=== PATIENT | male | born 1960 | race African-American/Black ===

== ENCOUNTER 2017-01-05 17:37 | Emergency (ER) | payer SELFPAY ==
[~2017-01-05] VITALS: Ht 182.9 cm; Wt 92.5 kg
[2017-01-05] MEDS ORDERED: TRAMADOL HCL50 MG ORAL (18:46)
[2017-01-05] MEDS ORDERED: IBUPROFEN600 MG ORAL (18:46)
[2017-01-05 19:05] VITALS: BP 152/98
--- NOTE | 2017-01-05 22:31 | Emergency Room Report ---
History of Present Illness General Chief Complaint: Lower Back Pain or Injury Source: Patient Present Illness HPI The patient is a 56-year-old male presenting for lower back pain which began 2 weeks prior. The patient states that the pain began due to a new car seat he installed. Pain is worse with sitting. It is described as an 8/10 dull ache and does not radiate from the lower back. He denies any numbness or tingling. He denies previous injury of the back. he has tried Motrin has not helped. He denies any other symptoms including nausea, vomiting, fever, chills Allergies: Coded Allergies: No Known Allergies (Unverified , 01/05/17) Patient History Past Medical History: see triage record Pertinent Family History: none Reviewed Nursing Documentation: PMH: Agreed, PSxH: Agreed Nursing Documentation-PMH Past Medical History: No Stated History Review of Systems All Other Systems: negative except mentioned in HPI Physical Exam Vital Signs Date Time Temp Pulse Resp B/P Pulse Ox O2 Delivery O2 Flow Rate FiO2 01/05/17 17:57 99.7 94 18 167/77 100 Room Air Sp02 EP Interpretation: reviewed, normal General Appearance: no apparent distress, alert, GCS 15, non-toxic Head: normocephalic, atraumatic Eyes: bilateral eye PERRL, bilateral eye normal inspection ENT: hearing grossly normal, normal pharynx, no angioedema, normal voice Neck: full range of motion, supple/symm/no masses Respiratory: chest non-tender, lungs clear, normal breath sounds, speaking full sentences Cardiovascular #1: regular rate, rhythm, no edema Musculoskeletal: back normal, gait/station normal, normal range of motion, tender - TTP over bilat lumbar paraspinous muscles Neurologic: alert, oriented x3, responsive, motor strength/tone normal, sensory intact, normal gait, speech normal Psychiatric: judgement/insight normal, memory normal, mood/affect normal, no suicidal/homicidal ideation Skin: normal color, no rash, warm/dry, well hydrated Medical Decision Making PA Attestation Dr. Escobar is my supervising physician. Patient management was discussed with my supervising physician Diagnostic Impression: Primary Impression: Lumbar strain Qualified Codes: S39.012A - Strain of muscle, fascia and tendon of lower back , initial encounter ER Course The patient is a 56-year-old male presenting for lower back pain DDx considered but not limited to: muscle strain, spasm, contusion, fracture, disc herniation, among others PE: vitals WNL. NAD findings consistent with lumbar muscle strain. No midline tenderness normal gait He will be DC'ed home with a prescription for motrin and tramadol. ER precautions given Last Vital Signs Date Time Temp Pulse Resp B/P Pulse Ox O2 Delivery O2 Flow Rate FiO2 01/05/17 19:05 96 16 152/98 99 Room Air 01/05/17 19:05 99.7 Status: improved Disposition: HOME, SELF-CARE Condition: Improved Scripts Tramadol Hcl* (ULTRAM*) 50 Mg Tablet 50 MG ORAL Q6H Y for For Pain, #10 TAB 0 Refills Prov: NADIA SAN 01/05/17 Ibuprofen* (MOTRIN*) 600 Mg Tablet 600 MG ORAL Q8H Y for For Pain, #30 TAB 0 Refills Prov: NADIA SAN.A. 01/05/17 Referrals: NOT CHOSEN IPA/MD,REFERRING (PCP) Patient Instructions: Back Pain, Adult Additional Instructions: I discussed my findings with the patient. All questions and concerns have been answered. Treatment and medication compliance have been addressed. I advised the patient that they need to follow up with PMD in 3-5 days. Return to ED if pain remains or worsens, numbness or tingling occurs, new rash is noticed, fever is noticed, or if needed for any reason. Patient verbalized understanding of discharge instructions. NADIA SAN Jan 05, 2017 22:31
== END 2017-01-05 19:10 | disposition home or self-care (01) ==
LOC: EMR 18:32
DX: S39.012A Strain of muscle, fascia and tendon of lower back, initial encounter (principal); X58.XXXA Exposure to other specified factors, initial encounter; Y92.89 Other specified places as the place of occurrence of the external cause
CPT/HCPCS: 99284

== ENCOUNTER 2020-08-27 14:12 | Inpatient (IN) | payer SELFPAY ==
[~2020-08-27] VITALS: Ht 182.9 cm; Wt 93.0 kg
[~2020-08-27 14:12] MED LIST: IBUPROFEN600 MG ORAL; TRAMADOL HCL50 MG ORAL
[2020-08-27] MEDS ORDERED: CYCLOBENZAPRINE10 MG ORAL (14:29)
[2020-08-27] MEDS ORDERED: ZOFRAN4 M3 ORAL (14:29)
[2020-08-27] MEDS ORDERED: HYDROCODON-ACE1 EA13 ORAL (14:29)
[2020-08-27] MEDS ORDERED: GABAPENTIN100 MG ORAL (14:29)
--- NOTE | 2020-08-27 14:31 | Emergency Room Report ---
History of Present Illness General Chief Complaint: Generalized Weakness Source: Patient, Family Member, EMS Present Illness HPI Family called EMS because the patient has been weak. He has a history of prostate cancer and is undergoing treatment at [facility]. Apparently was supposed to get a biopsy today but they could not get him to the facility because of weakness. He has been having dry heaves and decreased appetite. He is moved his bowels last in the last 2 to 3 days but says for the last week he has not been moving his bowels well at all. He denies any dysuria. He has had pain in his groin but does not radiate. He has been taking ibuprofen and [place] to treat the pain and denies pain at this time. He denies fevers or chills, productive cough or active vomiting. The patient had a negative Covid test this week. The daughter apparently states that he has been getting infusions at [facility]. Apparently a liver biopsy was recently done also. Daughters states that yesterday he did not recognize her initially but then did. Patient denies most ROS questions. Allergies: Coded Allergies: No Known Allergies (Unverified , 01/05/17) COVID-19 Screening Contact w/high risk pt: No Experienced COVID-19 symptoms?: No COVID-19 Testing performed SHANK CUTTER: Yes COVID-19 Screening: Negative COVID-19 COVID-19 Testing Source: nasal Patient History Past Medical History: see triage record Social History: Reports: alcohol use - daughter doesn't think problem but saw an open beer today; Denies: smoking, drug use Social History Narrative From home - lives by self (Daughter in [place] called 911) Reviewed Nursing Documentation: PMH: Agreed; PSxH: Agreed Nursing Documentation-PMH Past Medical History: No History, Except For Hx Cancer: Yes - prostate Review of Systems All Other Systems: negative except mentioned in HPI Physical Exam Vital Signs Date Time Temp Pulse Resp B/P (MAP) Pulse Ox O2 Delivery O2 Flow Rate FiO2 08/27/20 14:14 98.1 92 17 132/84 (100) 98 Room Air Sp02 EP Interpretation: reviewed, normal General Appearance: other - Slow speaking slightly spider habitus, Chronically Ill Head: normocephalic, atraumatic Eyes: bilateral eye PERRL, bilateral eye conjunctivae pale, bilateral eye scleral icterus ENT: moist mucus membranes Neck: supple Respiratory: lungs clear, normal breath sounds Cardiovascular #1: regular rate, rhythm Gastrointestinal: non tender, distended, other - fluid wave Genitourinary: no CVA tenderness Musculoskeletal: back normal Neurologic: alert, DTRs symmetric, motor weakness - generalized, other - slightly lethargic Psychiatric: other - Initially refusing care and suspicious Skin: warm/dry, pallor - Sallow Medical Decision Making Diagnostic Impression: Primary Impression: Encephalopathy Additional Impressions: Anemia Qualified Codes: D64.9 - Anemia, unspecified Liver failure Qualified Codes: K72.90 - Hepatic failure, unspecified without coma Prostate cancer Ascites Qualified Codes: R18.8 - Other ascites Bony metastasis Renal insufficiency Elevated INR ER Course Patient with history of prostate CA the presents with weakness nausea. Differential includes occult infection, acute myocardial infarction, metastatic disease electrolyte imbalance, dehydration amongst others. Patient evaluated with EKG, chest x-ray, abdomen film and labs. Patient treated with IV hydration. Challenging as patient is initially refusing care but finally agreed. EKG sinus rhythm with low voltage no injury. CXR with bony metastases. Abd ascites. Labs with anemia. Platelets slightly low. CMP: renal insufficiency and elevated LFTs. Normal ammonia. Elevated INR. Tox negative. Discussed with daughter. Unable to provide more specific PMHx and prior treatment. Patient incontinent of urine. Need to check I and O. Monzon placed. Turbid urine - Rocephin ordered. Daughter states he should be full code at this time. 1718 Complex patient with multiple co-morbidities. Admit. patient services rep consult - home evaluation and [facility] records request. Laboratory Tests Test 08/27/20 14:32 08/27/20 16:40 White Blood Count 5.2 K/UL (4.8-10.8) Red Blood Count 3.04 M/UL (4.70-6.10) L Hemoglobin 8.2 G/DL (14.2-18.0) L Hematocrit 26.7 % (42.0-52.0) L Mean Corpuscular Volume 88 FL (80-99) Mean Corpuscular Hemoglobin 26.8 PG (27.0-31.0) L Mean Corpuscular Hemoglobin Concent 30.5 G/DL (32.0-36.0) L Red Cell Distribution Width 25.6 % (11.6-14.8) H Platelet Count 127 K/UL (150-450) L Mean Platelet Volume 7.2 FL (6.5-10.1) Neutrophils (%) (Auto) % (45.0-75.0) Lymphocytes (%) (Auto) % (20.0-45.0) Monocytes (%) (Auto) % (1.0-10.0) Eosinophils (%) (Auto) % (0.0-3.0) Basophils (%) (Auto) % (0.0-2.0) Differential Total Cells Counted 100 Neutrophils % (Manual) 83 % (45-75) H Lymphocytes % (Manual) 12 % (20-45) L Monocytes % (Manual) 4 % (1-10) Eosinophils % (Manual) 0 % (0-3) Basophils % (Manual) 1 % (0-2) Band Neutrophils 0 % (0-8) Platelet Estimate Decreased L Platelet Morphology Normal Hypochromasia 1+ Anisocytosis 2+ Prothrombin Time 16.0 SEC (9.30-11.50) H Prothrombin Time INR 1.5 (0.9-1.1) H Activated Partial Thromboplast Time 30 SEC (23-33) Sodium Level 138 MMOL/L (136-145) Potassium Level 3.6 MMOL/L (3.5-5.1) Chloride Level 102 MMOL/L (98-107) Carbon Dioxide Level 23 MMOL/L (21-32) Anion Gap 13 mmol/L (5-15) Blood Urea Nitrogen 24 mg/dL (7-18) H Creatinine 1.4 MG/DL (0.55-1.30) H Estimated Glomerular Filtration Rate > 60 mL/min (>60) Glucose Level 100 MG/DL (74-106) Lactic Acid Level 1.40 mmol/L (0.4-2.0) Uric Acid 14.6 MG/DL (2.6-7.2) H Calcium Level 8.8 MG/DL (8.5-10.1) Magnesium Level 1.9 MG/DL (1.8-2.4) Ferritin 1091 NG/ML (8-388) H Total Bilirubin 3.4 MG/DL (0.2-1.0) H Direct Bilirubin 3.0 MG/DL (0.0-0.3) H Aspartate Amino Transferase (AST) 159 U/L (15-37) H Alanine Aminotransferase (ALT) 49 U/L (12-78) Alkaline Phosphatase 1042 U/L (46-116) H Ammonia 27 umol/L (11-32) Lactate Dehydrogenase 926 U/L (81-234) H Total Creatine Kinase 324 U/L (26-308) H Troponin I 0.000 ng/mL (0.000-0.056) C-Reactive Protein, Quantitative 13.1 mg/dL (0.00-0.90) H Pro-B-Type Natriuretic Peptide 1085 pg/mL (0-125) H Total Protein 6.2 G/DL (6.4-8.2) L Albumin 2.3 G/DL (3.4-5.0) L Globulin 3.9 g/dL Albumin/Globulin Ratio 0.6 (1.0-2.7) L Lipase 321 U/L (73-393) Thyroid Stimulating Hormone (TSH) 3.015 uiU/mL (0.358-3.740) Urine Color Yellow Urine Appearance Turbid Urine pH 6 (4.5-8.0) Urine Specific [place] 1.010 (1.005-1.035) Urine Protein 2+ (NEGATIVE) H Urine Glucose (UA) Negative (NEGATIVE) Urine Ketones 1+ (NEGATIVE) H Urine Blood 2+ (NEGATIVE) H Urine Nitrite Negative (NEGATIVE) Urine Bilirubin 1+ (NEGATIVE) H Urine Ictotest Negative (NEGATIVE) Urine Urobilinogen 8 MG/DL (0.0-1.0) H Urine Leukocyte Esterase Negative (NEGATIVE) Urine RBC 10-15 /HPF (0 - 0) H Urine WBC 0-2 /HPF (0 - 0) Urine Squamous Epithelial Cells None /LPF (NONE/OCC) Urine Amorphous Sediment Many /LPF (NONE) H Urine Bacteria Many /HPF (NONE) H Urine Opiates Screen Negative (NEGATIVE) Urine Barbiturates Screen Negative (NEGATIVE) Phencyclidine (PCP) Screen Negative (NEGATIVE) Urine Amphetamines Screen Negative (NEGATIVE) Urine Benzodiazepines Screen Negative (NEGATIVE) Urine Cocaine Screen Negative (NEGATIVE) Urine Marijuana (THC) Screen Negative (NEGATIVE) EKG Diagnostic Results Rate: normal Rhythm: NSR ST Segments: no acute changes - Low voltage Rhythm Strip Diag. Results EP Interpretation: yes Rhythm: NSR, no PVC's, no ectopy Chest X-Ray Diagnostic Results Chest X-Ray Diagnostic Results : Chest X-Ray Ordered: Yes # of Views/Limited/Complete: 1 View Indication: Other EP Interpretation: Yes Interpretation: no effusion, no pneumothorax, other - Bony mets Impression: Other Electronically Signed by: Electronically signed by Jerson Escobar MD Other X-Ray Diagnostic Results Other X-Ray Diagnostic Results : X-Ray ordered: Abdomen # of Views/Limited Vs Complete: 2 View Indication: Swelling EP Interpretation: Yes Interpretation: nonspecific bowel gas, no sbo, other - Ascites Impression: Other Electronically Signed by: Electronically signed by Jerson Escobar MD Last Vital Signs Date Time Temp Pulse Resp B/P (MAP) Pulse Ox O2 Delivery O2 Flow Rate FiO2 08/27/20 21:00 Room Air 08/27/20 16:53 98.1 82 18 130/80 98 Status: improved Disposition: ADMITTED INPATIENT Condition: Serious Jerson Escobar MD Aug 27, 2020 14:31
[2020-08-27 14:49] LABS: HEMATOCRIT 26.7 % (42.0-52.0); HEMOGLOBIN 8.2 G/DL (14.2-18.0); MEAN CORPUSCULAR VOLUME 88 FL (80-99); PLATELET COUNT 127 K/UL (150-450); RED BLOOD COUNT 3.04 M/UL (4.70-6.10); RED CELL DISTRIBUTION WIDTH 25.6 % (11.6-14.8); WHITE BLOOD COUNT 5.2 K/UL (4.8-10.8)
[2020-08-27 15:01] LABS: AMMONIA 27 umol/L (11-32); ANION GAP 13 mmol/L (5-15); BLOOD UREA NITROGEN 24 mg/dL (7-18); CALCIUM 8.8 MG/DL (8.5-10.1); CARBON DIOXIDE 23 MMOL/L (21-32); CHLORIDE 102 MMOL/L (98-107); CREATININE 1.4 MG/DL (0.55-1.30); INR 1.5 (0.9-1.1); POTASSIUM 3.6 MMOL/L (3.5-5.1); SODIUM 138 MMOL/L (136-145)
[2020-08-27 15:17] LABS: ALANINE AMINOTRANSFERASE 49 U/L (12-78); ALBUMIN 2.3 G/DL (3.4-5.0); ALBUMIN/GLOBULIN RATIO 0.6 (1.0-2.7); ALKALINE PHOSPHATASE 1042 U/L (46-116); ASPARTATE AMINO TRANSFERASE 159 U/L (15-37); BILIRUBIN,TOTAL 3.4 MG/DL (0.2-1.0); CREATINE KINASE 324 U/L (26-308); FERRITIN 1091 NG/ML (8-388); LACTATE DEHYDROGENASE 926 U/L (81-234)
--- NOTE | 2020-08-27 15:31 | NUR ---
Note geremias in EDM - 08/27/20 at 1537 by TESSA Patient brought into ER. His family called EMS because the patient has been weak. He present with hx of prostate cancer currently undergoing treatment at [facility]. Was scheduled to have a biopsy today but they could not get him to the facility because of weakness. He has been having dry heaves and decreased appetite. He is moved his bowels last in the last 2 to 3 days but says for the last week he has not been moving his bowels well at all. He denies any dysuria. He has had pain in his groin but does not radiate. He has been taking ibuprofen and [place] to treat the pain and denies pain at this time. He denies fevers or chills, productive cough or active vomiting.
--- NOTE | 2020-08-27 16:03 | Diagnostic Imaging Report ---
Indication: Abdominal pain Technique: Supine view of the abdomen Comparison: none Findings: Bowel gas pattern is unremarkable. Lack of bowel gas in the upper abdomen could indicate hepatomegaly and/or splenomegaly. No definite masses. The bones are very diffusely sclerotic. Impression: Possible hepatomegaly No definite acute abnormality Extremely sclerotic bones. Main differential considerations are metabolic disorder, diffuse osteosclerotic metastases. Correlate with clinical history
--- NOTE | 2020-08-27 16:05 | Diagnostic Imaging Report ---
Indication: Shortness of breath Technique: One view of the chest Comparison: none Findings: The bones are diffusely sclerotic. Multiple ribs appear to be expanded, particularly on the right. Apparent right hemithoracic masses probably represent expanded ribs, but intrapulmonary masses may also be present. No definite infiltrates. The heart size is normal. The pleural spaces are clear. Impression: Markedly abnormal diffusely sclerotic bones. Given apparent expansion of multiple ribs, most likely on the basis of neoplasm. Correlate with clinical history Apparent right lung masses are probably extrapulmonary due to the above-mentioned expanded ribs, although intrapulmonary lesions are also possible. No definite infiltrate
--- NOTE | 2020-08-27 16:27 | NUR ---
Patient is refusing hernández catheter. Will get assist to place
[2020-08-27] MEDS ORDERED: cefTRIAXone 1 GM in NS 55 ML IVPB ONE (16:45)
--- NOTE | 2020-08-27 16:56 | NUR ---
report given to hasmukh august patient is to be transferd to room 418-1
--- NOTE | 2020-08-27 17:17 | NUR ---
patients meds is in pharmacy envolope#[id number]
--- NOTE | 2020-08-27 17:20 | NUR ---
NURSE NOTES: Patient came to unit by ben in stable condition. Alert and oriented x4. No complain of pain or distress at this time. Skin intact and dry. IV dressing intact and dry. Belonging checked. Patient has villatoro and money order but refused to put in safe box. Bed lowest position and side rails up. Call light within reach. Will continue to monitor.
[2020-08-27 17:39] LABS: APPEARANCE,URINE TURBID; BILIRUBIN, URINE 1+ (NEGATIVE); GLUCOSE, URINE (UA) NEGATIVE (NEGATIVE); KETONES,URINE 1+ (NEGATIVE); NITRITE,URINE NEGATIVE (NEGATIVE); PH,URINE 6 (4.5-8.0); PROTEIN,URINE 2+ (NEGATIVE); UROBILINOGEN,URINE 8 MG/DL (0.0-1.0)
[2020-08-27 17:54] LABS: COLOR,URINE YELLOW
[2020-08-27 17:55] LABS: LEUKOCYTE ESTERASE ,URINE NEGATIVE (NEGATIVE)
[2020-08-27] MEDS ORDERED: Varibar Nectar 240ml MC PRN (18:15)
[2020-08-27] MEDS ORDERED: Varibar Thin Liquid powder 148gm MC PRN (18:15)
[2020-08-27] MEDS ORDERED: Varibar Honey 250ml MC PRN (18:15)
[2020-08-27] MEDS ORDERED: Varibar Pudding 230ml MC PRN (18:15)
--- NOTE | 2020-08-27 19:30 | NUR ---
NURSE HAND-OFF: Important Events on Shift:New admission Patient Status: Stable Diet: NPO Pending Orders: N/A Pending Results/Labs:CBC, CMP on 08/28 Pending MD notification:N/A Latest Vital Signs: Temperature 98.1 , Pulse 82 , B/P 130 /80 , Respiratory Rate 18 , O2 SAT 98 , Room Air, O2 Flow Rate . Vital Sign Comment: Stable Latest Omalley Fall Score: 50 Fall Risk: High Risk Safety Measures: Call light Within Reach, Bed Alarm Zone 1, Side Rails Side Rails x2, Bed position Low and Locked. Fall Precautions: Yellow Socks Door Sign Patient Fall Education Report given to Clemencia PEÑA. Patient in stable condition.
[2020-08-27] MEDS: D5NS 1,000 ML IV SCH (20:00)
[2020-08-28] VITALS (8 sets, daily range): BP systolic 123–145; BP diastolic 66–91
[2020-08-28] MEDS: D5NS 1,000 ML IV SCH ×2 (00:38→16:33)
[2020-08-28 06:54] LABS: HEMATOCRIT 24.4 % (42.0-52.0); HEMOGLOBIN 7.5 G/DL (14.2-18.0); MEAN CORPUSCULAR VOLUME 86 FL (80-99); PLATELET COUNT 120 K/UL (150-450); RED BLOOD COUNT 2.82 M/UL (4.70-6.10); RED CELL DISTRIBUTION WIDTH 26.2 % (11.6-14.8); WHITE BLOOD COUNT 5.7 K/UL (4.8-10.8)
--- NOTE | 2020-08-28 07:22 | NUR ---
NURSE HAND-OFF: Important Events on Shift:[ADMISSION, ALERT/ORIENTED TO PERSON/PLACE, SPEECH CLEAR/DELAYED, IV FLUIDS ONGOING RIGHT AC/GAUGE 20, ENCOURAGED PATIENT TO KEEP EXTREMITY STRAIGHT TO AVOID OCCLUDING IV FLUIDS, REQUIRE REPETITIVE INTERVENTIONS] Patient Status: [STABLE, AFEBRILE] Diet: [NPO] Pending Orders: [AM LABS] Pending Results/Labs:[] Pending MD notification:[] Latest Vital Signs: Temperature 98.1 , Pulse 82 , B/P 130 /80 , Respiratory Rate 18 , O2 SAT 98 , Room Air, O2 Flow Rate . Vital Sign Comment: [STABLE, AFEBRILE] Latest Omalley Fall Score: 50 Fall Risk: High Risk Safety Measures: Call light Within Reach, Bed Alarm Zone 2, Side Rails Side Rails x3, Bed position Low and Locked. Fall Precautions: Yellow Socks Door Sign Patient Fall Education Report given to [MARIANA RIVAS].
[2020-08-28 07:29] LABS: ALBUMIN 2.2 G/DL (3.4-5.0); ALBUMIN/GLOBULIN RATIO 0.6 (1.0-2.7); BILIRUBIN,TOTAL 3.3 MG/DL (0.2-1.0); CALCIUM 8.9 MG/DL (8.5-10.1); CREATININE 1.5 MG/DL (0.55-1.30); POTASSIUM 3.9 MMOL/L (3.5-5.1)
[2020-08-28 07:31] LABS: BILIRUBIN,DIRECT 2.7 MG/DL (0.0-0.3)
--- NOTE | 2020-08-28 07:54 | NUR ---
NURSE NOTES: Patient asleep; on room air, no sing of distress and shortness of breath; no sing of chest pain; IV RAC, patient keep his hand fold and IV fluid isn't going through; will try to insert another IV line; per PM nurse, couldn't able to insert another IV; will try to insert another IV; Monzon in place, Urine concentrated; side rails up x2, breaks engaged, bed at lowest position, bed alarm on; call light within reach; will keep monitoring.
--- NOTE | 2020-08-28 10:10 | NUR ---
NURSE NOTES: Patient's Hgb 7.5; I communicated MD Schmid regarding this lab value; waiting for order;
--- NOTE | 2020-08-28 11:57 | Consultation ---
Consult Note Consult Note I am asked to evaluate the patient at her request of Dr. Fields for fluid and electrolyte management Chief Complaint: Generalized Weakness Family called EMS because the patient has been weak. He has a history of prostate cancer and is undergoing treatment at [facility]. Apparently was supposed to get a biopsy today but they could not get him to the facility because of weakness. He has been having dry heaves and decreased appetite. He is moved his bowels last in the last 2 to 3 days but says for the last week he has not been moving his bowels well at all. He denies any dysuria. He has had pain in his groin but does not radiate. He has been taking ibuprofen and [place] to treat the pain and denies pain at this time. He denies fevers or chills, productive cough or active vomiting. The patient had a negative Covid test this week. The daughter apparently states that he has been getting infusions at [facility]. Apparently a liver biopsy was recently done also. Daughters states that yesterday he did not recognize her initially but then did. Patient denies most ROS questions. Allergies: No Known Allergies (Unverified , 01/05/17) COVID-19 Screening Contact w/high risk pt: No Experienced COVID-19 symptoms?: No COVID-19 Testing performed SAMPLE BOX MAKER: Yes COVID-19 Screening: Negative COVID-19 COVID-19 Testing Source: nasal \ Past Medical History: No History, Except For Hx Cancer: Yes - prostate \ Vital Signs Date Time Temp Pulse Resp B/P (MAP) Pulse Ox O2 Delivery O2 Flow Rate FiO2 08/27/20 14:14 98.1 92 17 132/84 (100) 98 Room Air PHYSICAL EXAMINATION: VITAL SIGNS: Temperature 97.9, pulse 87, blood pressure 124/81. GENERAL APPEARANCE: Seems to be well developed. HEAD AND NECK: Icteric sclerae. HEART: Normal rate. LUNGS: Clear. ABDOMEN: Soft, distended. EXTREMITIES: Has edema of both legs. GENITOURINARY: Has Monzon catheter. NEUROLOGIC: He is awake, alert, responsive, seems drowsy. LABORATORY STUDIES: Sodium 137, potassium 3.9, chloride 102, bicarb 22, BUN 25, creatinine 1.5, glucose is 92. Bilirubin is 3.3. AST 151, alkaline phosphatase is 999. Albumin 2.2. BNP 1085. Urine toxicology was negative. UA showed wbc of 0 to 2, bacteria many. Chest x-ray, markedly abnormal diffuse sclerotic bones, most likely basis of the neoplasm. Right lung mass is likely extrapulmonary from weight. No definite infiltrate. Abdominal x-ray showed again sclerotic bones hepatomegaly. . Assessment/Plan Imp: 59-year-old male presents with severe weakness. History of prostate cancer. Renal failure, serum creatinine 1.5 Severe anemia Elevated LFTs and bilirubin Sugg: Anemia work-up Kidney and abdominal ultrasound Monitor renal parameters Urine studies PSA level Avoid nephrotoxic's IV fluid Continue per consultants Dean Brink MD Aug 28, 2020 11:57
--- NOTE | 2020-08-28 12:16 | Diagnostic Imaging Report ---
EXAM: US Abdomen Complete CLINICAL HISTORY: INFECT TECHNIQUE: Real-time ultrasound of the abdomen with image documentation. COMPARISON: None FINDINGS: Liver: Heterogeneous liver with suggestion of masses throughout, concerning for masses. Liver is enlarged, measuring 22.8 cm. Gallbladder: No gallstones or sludge. No gallbladder wall thickening or pericholecystic fluid. Negative sonographic Carbajal sign. Common bile duct: Common bile duct not well visualized due to liver nodularity and bowel gas. Pancreas: Pancreas is not well-visualized due to overlying bowel gas. Kidneys: Right kidney measures 10.6 cm in length. No hydronephrosis or stone. Left kidney measures 10.7 cm in length. No hydronephrosis or stone. Spleen: Enlarged, heterogeneous spleen measuring 15.5 cm. This may also contain masses. Aorta: Aorta are not well-visualized due to overlying bowel gas. Inferior vena cava: Visualized portions of the IVC are grossly unremarkable. Other vasculature: Patent main portal vein with normal direction of flow. IMPRESSION: 1. Heterogeneous liver with suggestion of masses throughout, concerning for masses. Liver is enlarged, measuring 22.8 cm. 2. Enlarged, heterogeneous spleen measuring 15.5 cm. This may also contain masses. 3. Further evaluation could be performed with contrast-enhanced CT or MRI.
--- NOTE | 2020-08-28 12:29 | Cardiology Report ---
APPROVED REPORT EKG Measurement Heart [id number] <Conclusion> Normal sinus rhythm Low voltage QRS Possible Anterolateral infarct, age undetermined ST & T wave abnormality, consider inferior ischemia Abnormal ECG
--- NOTE | 2020-08-28 12:36 | NUR ---
NURSE NOTES: One Unit Blood Transfusion stated; vital stable; will monitoring patient for the first 15 minutes; recheck vitals
[2020-08-28 12:48] LABS: % IRON SATURATION 93 % (15-50); IRON 159 ug/dL (50-175); TOTAL IRON BINDING CAPACITY 171 ug/dL (250-450)
[2020-08-28 13:05] LABS: CHOLESTEROL 204 MG/DL (< 200); HDL CHOLESTEROL 13 MG/DL (40-60); TRIGLYCERIDES 172 MG/DL (30-150)
--- NOTE | 2020-08-28 13:59 | Consultation ---
DATE OF CONSULTATION: 08/28/2020 INFECTIOUS DISEASE CONSULTATION CONSULTING PHYSICIAN: Jim Miranda MD. PRIMARY ATTENDING PHYSICIAN: Gabrielle Ortiz MD. REASON FOR CONSULTATION: Elevated transaminase and bilirubin. HISTORY OF PRESENT ILLNESS: This is a 59-year-old male, admitted yesterday for weakness, has also altered mental status for a short period of time . He has metastatic prostate cancer and undergoing treatment at [facility], was supposed to have a biopsy yesterday, but cannot go to the facility because of weakness. Had a recent COVID test this week that was negative. PAST MEDICAL HISTORY: Prostate cancer. ALLERGIES: No known drug allergies. MEDICATIONS: The patient is only getting D5, sodium chloride, but had a dose of ceftriaxone in the emergency room yesterday. SOCIAL HISTORY: Single. No history of alcohol, drug abuse, or smoking. He has a daughter, who is next of kin. REVIEW OF SYSTEMS: Denies any fever or coughing. No shortness of breath. No dysuria. Does have some pain in groins. PHYSICAL EXAMINATION: VITAL SIGNS: Temperature 97.9, pulse 87, blood pressure 124/81. GENERAL APPEARANCE: Seems to be well developed. HEAD AND NECK: Icteric sclerae. HEART: Normal rate. LUNGS: Clear. ABDOMEN: Soft, distended. EXTREMITIES: Has edema of both legs. GENITOURINARY: Has Monzon catheter. NEUROLOGIC: He is awake, alert, responsive, seems drowsy. LABORATORY STUDIES: Sodium 137, potassium 3.9, chloride 102, bicarb 22, BUN 25, creatinine 1.5, glucose is 92. Bilirubin is 3.3. AST 151, alkaline phosphatase is 999. Albumin 2.2. BNP 1085. Urine toxicology was negative. UA showed wbc of 0 to 2, bacteria many. Chest x-ray, markedly abnormal diffuse sclerotic bones, most likely basis of the neoplasm. Right lung mass is likely extrapulmonary from weight. No definite infiltrate. Abdominal x-ray showed again sclerotic bones hepatomegaly. IMPRESSION: Bacteriuria, we will try to rule out UTI. The patient had elevated bilirubin and transaminase. The patient also has metastatic prostate cancer with bony metastasis, has right lung mass, has legs edema. RECOMMENDATION: We will follow up the cultures. We will follow the results of the abdominal ultrasound. We will start the patient on ceftriaxone. If the patient culture remains negative, we will stop antibiotics soon. At the end of my exam, I thank Dr. Ortiz for involving me in the care of this patient. Jim Miranda M.D. DR: KENJI JOB#: [id number] CC: NORMAN
--- NOTE | 2020-08-28 14:29 | NUR ---
NURSE NOTES: Patient resting, Blood transfusion going on; will keep monitoring.
[2020-08-28] MEDS: cefTRIAXone 1 GM in D5W 55 ML IVPB SCH (16:33)
--- NOTE | 2020-08-28 16:50 | NUR ---
NURSE NOTES: Blood transfusion completed; Transfused bag returned to Blood Bank; patient stable;
--- NOTE | 2020-08-28 19:19 | NUR ---
NURSE HAND-OFF: Important Events on Shift: One Unit PRBC blood transfusion done; US ABD done; Patient Status: Diet: Pending Orders: Pending Results/Labs: Pending MD notification: Latest Vital Signs: Temperature 98.0 , Pulse 85 , B/P 130 /84 , Respiratory Rate 20 , O2 SAT 98 , Room Air, O2 Flow Rate . Vital Sign Comment: Latest Omalley Fall Score: 50 Fall Risk: High Risk Safety Measures: Call light Within Reach, Bed Alarm Zone 2, Side Rails Side Rails x3, Bed position Low and Locked. Fall Precautions: Yellow Socks Door Sign Patient Fall Education Report given to .
--- NOTE | 2020-08-28 19:20 | NUR ---
NURSE NOTES: Patient in bed, able to make needs known. On room air with no signs of distress or SOB. Monzon in place, and draining to gravity. Bed locked and in lowest position. Bed alarm on. Call light within reach. Will continue plan of care.
[2020-08-28] MEDS: Pantoprazole Inj IVP SCH (20:39)
--- NOTE | 2020-08-28 22:29 | History and Physical Report ---
DATE OF ADMISSION: 08/27/2020 HISTORY OF PRESENT ILLNESS: The patient is being admitted for anemia. The patient has metastatic prostate cancer, admitted also for encephalopathy. The patient has waxing and waning mental status. Upon examination, closes eyes after about 5 seconds. The patient has been complaining of dry heaves and weakness. He has metastatic prostate cancer. Also, has liver failure and azotemia. Admitted for also acute renal failure as well as elevated LFTs, anemia, and encephalopathy. The patient denies nausea, vomiting, or diarrhea. Denies rectal bleeding. Denies shortness of breath. Denies cough. Denies fever or chills. Denies headache. Has generalized weakness. PAST MEDICAL HISTORY: 1. Chronic pain syndrome, most likely prostate cancer. 2. Metastatic prostate cancer. 3. Liver failure. 4. Bony metastasis. PAST SURGICAL HISTORY: Denies. ALLERGIES: No known allergies. SOCIAL HISTORY: Denies history of smoking. Denies history of alcohol abuse. Denies history of drug abuse. MEDICATIONS: He takes gabapentin, off-and-on Flexeril, and off-and-on tramadol. FAMILY HISTORY: Noncontributory. REVIEW OF SYSTEMS: HEENT: Denies headaches. RESPIRATORY: Denies shortness of breath. Denies cough. CARDIOVASCULAR: Denies chest pain. Denies orthopnea. GASTROINTESTINAL: Denies nausea, vomiting, or diarrhea. Does have dry heaves. EXTREMITIES: Denies pain. CENTRAL NERVOUS SYSTEM: Change in speech pattern, but feels more lethargic and weaker than usual. PHYSICAL EXAMINATION: VITAL SIGNS: Temperature is 97.9, pulse is 87, and blood pressure is 124/81. HEENT: PERRLA. NECK: Supple. No lymphadenopathy. CHEST: Clear to auscultation CARDIOVASCULAR: Regular rate and rhythm. No murmurs or extra sounds. GASTROINTESTINAL: Soft, nontender, nondistended. No organomegaly. EXTREMITIES: No edema. Moves all four extremities. NEUROLOGIC: Reflexes are equal on both sides. Has generalized weakness. Oriented x2 only. Has waxing and waning mental status. LABORATORY DATA: WBC of 5.2, hemoglobin of 8.2, and platelets of 127. Sodium 137, potassium of 3.9, chloride of 102, BUN of 25, creatinine of 1.5, glucose of 93, total bilirubin of 3.3, AST of 151, ALT of 47, and alkaline phosphatase of 999. ASSESSMENT AND PLAN: Metastatic prostate cancer, encephalopathy, anemia, elevated LFTs, acute renal failure, rule out dehydration. The patient has a Monzon in to rule out obstructive uropathy from the prostate cancer. I have consulted Dr. Zelaya, Dr. Matthews, Dr. Brink, Dr. Cr Schmid, Dr. Jim Miranda, and Dr. Solorzano to help with monitoring of the above-mentioned abnormalities that include abnormal labs, abnormal imaging as well as abnormal symptoms. Most likely, this could be due to the advancement of the cancer. We will monitor the patient very closely. Gabrielle Ortiz M.D. DR: Ember JOB#: [id number] CC:
--- NOTE | 2020-08-28 23:34 | General Progress Note ---
Subjective Allergies: Coded Allergies: No Known Allergies (Unverified , 01/05/17) Objective Last 24 Hour Vital Signs Date Time Temp Pulse Resp B/P (MAP) Pulse Ox O2 Delivery O2 Flow Rate FiO2 08/28/20 21:00 Room Air 08/28/20 20:00 97.9 90 18 145/85 (105) 99 08/28/20 16:50 98.0 85 20 130/84 (99) 08/28/20 16:00 98.0 90 20 128/84 (99) 08/28/20 12:51 97.6 91 20 131/91 (104) 08/28/20 12:36 97.0 83 20 130/77 (94) 08/28/20 12:00 97.0 83 20 130/77 (94) 08/28/20 09:00 Room Air 08/28/20 08:00 97.9 87 20 124/81 (95) Intake and Output 08/27/20 08/28/20 19:00 07:00 Intake Total 660 ml Output Total 450 ml Balance 210 ml Intake IV Total 660 ml Output Urine Total 450 ml Laboratory Tests 08/28/20 05:10: White Blood Count 5.7, Red Blood Count 2.82L, Hemoglobin 7.5L, Hematocrit 24.4L, Mean Corpuscular Volume 86, Mean Corpuscular Hemoglobin 26.5L, Mean Corpuscular Hemoglobin Concent 30.7L, Red Cell Distribution Width 26.2H, Platelet Count 120L , Mean Platelet Volume 8.5, Neutrophils (%) (Auto) , Lymphocytes (%) (Auto) , Monocytes (%) (Auto) , Eosinophils (%) (Auto) , Basophils (%) (Auto) , Differential Total Cells Counted 100, Neutrophils % (Manual) 85H, Lymphocytes % (Manual) 11L, Monocytes % (Manual) 4, Eosinophils % (Manual) 0, Basophils % (Manual) 0, Band Neutrophils 0, Nucleated Red Blood Cells 1, Platelet Estimate DecreasedL, Platelet Morphology Normal, Polychromasia 1+, Hypochromasia 2+, Anisocytosis 3+, Target Cells Occasional, Tear Drop Cells Occasional, Sodium Level 137, Potassium Level 3.9, Chloride Level 102, Carbon Dioxide Level 22, Anion Gap 13, Blood Urea Nitrogen 25H, Creatinine 1.5H, Estimat Glomerular Filtration Rate 58.4, Glucose Level 93, Calcium Level 8.9, Iron Level 159, Total Iron Binding Capacity 171L, Percent Iron Saturation 93H, Unsaturated Iron Binding 12L, Total Bilirubin 3.3H, Direct Bilirubin 2.7H, Aspartate Amino Transf (AST/SGOT) 151H, Alanine Aminotransferase (ALT/SGPT) 47, Alkaline Phosphatase 999H, Total Protein 6.0L, Albumin 2.2L, Globulin 3.8, Albumin/Globulin Ratio 0.6L, Triglycerides Level 172H, Cholesterol Level 204H, LDL Cholesterol 126H, HDL Cholesterol 13L, Cholesterol/HDL Ratio 15.7H, Prostate Specific Antigen 1522.57H, Folate 1.2L, Total Testosterone [Pending] Height (Feet): 6 Height (Inches): 0.00 Weight (Pounds): 205 Assessment/Plan Assessment/Plan: GI CONSULT Dictated Thank you MD Jos Glez Payman MD Aug 28, 2020 23:34
[2020-08-28] MEDS ORDERED: Phytonadione 10 mg/mL 1ml amp SUBQ SCH (23:45)
[2020-08-29 04:00] VITALS: BP 120/68
--- NOTE | 2020-08-29 06:14 | Consultation ---
DATE OF CONSULTATION: 08/28/2020 GASTROENTEROLOGY CONSULTATION CHIEF COMPLAINT: I was asked to see this patient by Dr. Gabrielle Ortiz for evaluation of liver issues. HISTORY OF PRESENT ILLNESS: The patient is a 59-year-old man with a reported history of prostate cancer, which is advanced and is being treated at [facility]. He is here for multiple issues. The patient is somewhat of a poor historian and most of the information is available mainly from the chart. The patient reportedly has metastatic prostate cancer with abnormal liver tests and encephalopathy. He denies abdominal pain, nausea, or vomiting to me. He states he has not had a bowel movement. He cannot recall if he has ever had endoscopy or colonoscopy. He did have some decreased appetite and dry heaves. PAST MEDICAL HISTORY: History of metastatic prostate cancer. FAMILY HISTORY: Noncontributory. SOCIAL HISTORY: The patient has a daughter who looks after him. REVIEW OF SYSTEMS: Otherwise negative. PHYSICAL EXAMINATION: GENERAL: Debilitated man, seen in his room. HEENT: Normocephalic and atraumatic. NECK: Supple. CHEST: Revealed coarse breath sounds. CARDIOVASCULAR: Revealed a regular rate. ABDOMEN: Markedly enlarged with firm liver extending 10 cm below the costal margin. EXTREMITIES: Reveal bilateral lower extremity edema. LABORATORY DATA: Noted. ASSESSMENT: This patient presents with significant derangement in the liver tests including bilirubin. The ultrasound done shows multiple metastases. By report, the patient has metastatic prostate cancer, but this pattern of metastasis to the liver is unusual for the prostate cancer. The patient should have a CT scan to better define the metastases and perhaps biopsy of the lesions. The biopsy of liver has been planned at [facility], but reportedly it has not been done yet. In the meantime, the patient has received some vitamin K to reverse the coagulopathy since INR is increased. The subcutaneous heparin should be given for deep vein thrombosis prophylaxis. The patient's prognosis overall appears to be poor, but further evaluation is underway. Clear liquid diet will be appropriate for now. Laxatives can be given as needed. RECOMMENDATIONS: Per above discussion and per orders written in the chart. Thank you for asking me to participate in the care of this patient. Agus Arguello M.D. DR: GAYLA JOB#: [id number] CC: NORMAN
--- NOTE | 2020-08-29 06:32 | NUR ---
NURSE HAND-OFF: Important Events on Shift: Vit K x1, ABD CT for today, NPO since midnight Patient Status: Stable Diet: Clear liquid Pending Orders: Abd CT Pending Results/Labs: blood culture/urine culture, ammonia, CMP, Mag, Phos, BNP, CRP, Cr, Uric acid, B12 Pending MD notification: N/A Latest Vital Signs: Temperature 97.8 , Pulse 74 , B/P 120 /68 , Respiratory Rate 18 , O2 SAT 96 , Room Air, O2 Flow Rate . Vital Sign Comment: N/A Latest Omalley Fall Score: 50 Fall Risk: High Risk Safety Measures: Call light Within Reach, Bed Alarm Zone 2, Side Rails Side Rails x3, Bed position Low and Locked. Fall Precautions: Yellow Socks Door Sign Patient Fall Education
[2020-08-29] MEDS: D5NS 1,000 ML IV SCH ×2 (06:53→16:21)
[2020-08-29 07:33] LABS: ANION GAP 10 mmol/L (5-15); BLOOD UREA NITROGEN 22 mg/dL (7-18); CALCIUM 8.5 MG/DL (8.5-10.1); CARBON DIOXIDE 22 MMOL/L (21-32); CHLORIDE 104 MMOL/L (98-107); CREATININE 1.3 MG/DL (0.55-1.30); POTASSIUM 3.5 MMOL/L (3.5-5.1); SODIUM 136 MMOL/L (136-145)
--- NOTE | 2020-08-29 07:35 | NUR ---
NURSE NOTES: Patient awake, looks weak and tired; on room air, no sing of distress and shortness of breath; no sing of chest pain; IV LAC D5NS 100cc running; Monzon in place, urine cloudy; lower extremities edematous; side rails up x2, breaks engaged, bed at lowest position, call light within reach; bed alarm on; will keep monitoring.
[2020-08-29 07:44] LABS: ALANINE AMINOTRANSFERASE 42 U/L (12-78); ALBUMIN/GLOBULIN RATIO 0.6 (1.0-2.7); ALKALINE PHOSPHATASE 921 U/L (46-116); ASPARTATE AMINO TRANSFERASE 127 U/L (15-37); BILIRUBIN,TOTAL 2.9 MG/DL (0.2-1.0)
[2020-08-29 07:45] LABS: BILIRUBIN,DIRECT 2.5 MG/DL (0.0-0.3)
[2020-08-29 07:53] LABS: HEMOGLOBIN 8.2 G/DL (14.2-18.0); MEAN CORPUSCULAR VOLUME 83 FL (80-99); PLATELET COUNT 75 K/UL (150-450); RED BLOOD COUNT 3.12 M/UL (4.70-6.10); RED CELL DISTRIBUTION WIDTH 23.4 % (11.6-14.8); WHITE BLOOD COUNT 4.8 K/UL (4.8-10.8)
[2020-08-29 08:00] VITALS: BP 109/66
[2020-08-29 08:02] LABS: CREATINE KINASE 280 U/L (26-308); PHOSPHORUS 2.7 MG/DL (2.5-4.9)
[2020-08-29] MEDS: Pantoprazole Inj IVP SCH ×2 (08:27→21:45)
[2020-08-29] MEDS ORDERED: Heparin 5000 units/ml inj SUBQ SCH (09:00)
--- NOTE | 2020-08-29 09:37 | Consultation ---
History of Present Illness General Chief Complaint: Generalized Weakness Present Illness Allergies: Coded Allergies: No Known Allergies (Unverified , 01/05/17) Medication History Scheduled Cyclobenzaprine Hcl* (Flexeril*), 5 MG ORAL THREE TIMES A DAY, (Reported) Gabapentin* (Gabapentin*), 300 MG ORAL DAILY, (Reported) Hydrocodone Bit/Acetaminophen 10-325* (Hydrocodon-Acetaminophn 10-325*), 1 TAB ORAL Q6H, (Reported) Scheduled PRN Ibuprofen (Motrin), 600 MG ORAL Q8H PRN for For Pain Ondansetron* (Zofran*), 8 MG ORAL EVERY 8 HOURS PRN for Nausea & Vomiting, (Reported) Tramadol Hcl* (Ultram*), 50 MG ORAL Q6H PRN for For Pain Patient History Healthcare decision maker N Resuscitation status Advanced Directive on File Physical Exam Last 24 Hour Vital Signs Date Time Temp Pulse Resp B/P (MAP) Pulse Ox O2 Delivery O2 Flow Rate FiO2 08/29/20 08:00 97.4 81 15 109/66 (80) 97 08/29/20 04:00 97.8 74 18 120/68 (85) 96 08/28/20 23:41 98.1 79 17 123/66 (85) 96 08/28/20 21:00 Room Air 08/28/20 20:00 97.9 90 18 145/85 (105) 99 08/28/20 16:50 98.0 85 20 130/84 (99) 08/28/20 16:00 98.0 90 20 128/84 (99) 08/28/20 12:51 97.6 91 20 131/91 (104) 08/28/20 12:36 97.0 83 20 130/77 (94) 08/28/20 12:00 97.0 83 20 130/77 (94) Intake and Output 08/28/20 08/29/20 19:00 07:00 Intake Total 710 ml Output Total 300 ml 250 ml Balance 410 ml -250 ml Intake IV Total 710 ml Output Urine Total 300 ml 250 ml # Voids 1 Laboratory Tests Test 08/29/20 07:14 White Blood Count 4.8 K/UL (4.8-10.8) Red Blood Count 3.12 M/UL (4.70-6.10) L Hemoglobin 8.2 G/DL (14.2-18.0) L Hematocrit 26.0 % (42.0-52.0) L Mean Corpuscular Volume 83 FL (80-99) Mean Corpuscular Hemoglobin 26.4 PG (27.0-31.0) L Mean Corpuscular Hemoglobin Concent 31.7 G/DL (32.0-36.0) L Red Cell Distribution Width 23.4 % (11.6-14.8) H Platelet Count 75 K/UL (150-450) L Mean Platelet Volume 7.0 FL (6.5-10.1) Neutrophils (%) (Auto) % (45.0-75.0) Lymphocytes (%) (Auto) % (20.0-45.0) Monocytes (%) (Auto) % (1.0-10.0) Eosinophils (%) (Auto) % (0.0-3.0) Basophils (%) (Auto) % (0.0-2.0) Differential Total Cells Counted 100 Neutrophils % (Manual) 78 % (45-75) H Lymphocytes % (Manual) 15 % (20-45) L Monocytes % (Manual) 3 % (1-10) Eosinophils % (Manual) 1 % (0-3) Basophils % (Manual) 0 % (0-2) Band Neutrophils 3 % (0-8) Nucleated Red Blood Cells 2 /100 WBC Platelet Estimate Decreased L Platelet Morphology Normal Polychromasia 1+ Hypochromasia 2+ Anisocytosis 3+ Target Cells Occasional Sodium Level 136 MMOL/L (136-145) Potassium Level 3.5 MMOL/L (3.5-5.1) Chloride Level 104 MMOL/L (98-107) Carbon Dioxide Level 22 MMOL/L (21-32) Anion Gap 10 mmol/L (5-15) Blood Urea Nitrogen 22 mg/dL (7-18) H Creatinine 1.3 MG/DL (0.55-1.30) Estimat Glomerular Filtration Rate > 60 mL/min (>60) Glucose Level 134 MG/DL (74-106) H Uric Acid 13.5 MG/DL (2.6-7.2) H Calcium Level 8.5 MG/DL (8.5-10.1) Phosphorus Level 2.7 MG/DL (2.5-4.9) Magnesium Level 1.9 MG/DL (1.8-2.4) Total Bilirubin 2.9 MG/DL (0.2-1.0) H Direct Bilirubin 2.5 MG/DL (0.0-0.3) H Aspartate Amino Transf (AST/SGOT) 127 U/L (15-37) H Alanine Aminotransferase (ALT/SGPT) 42 U/L (12-78) Alkaline Phosphatase 921 U/L (46-116) H Ammonia 38 umol/L (11-32) H Total Creatine Kinase 280 U/L (26-308) C-Reactive Protein, Quantitative 9.8 mg/dL (0.00-0.90) H Pro-B-Type Natriuretic Peptide 823 pg/mL (0-125) H Total Protein 5.5 G/DL (6.4-8.2) L Albumin 2.0 G/DL (3.4-5.0) L Globulin 3.5 g/dL Albumin/Globulin Ratio 0.6 (1.0-2.7) L Vitamin B12 Level > 2000 PG/ML (193-986) H Height (Feet): 6 Height (Inches): 0.00 Weight (Pounds): 205 Medications Current Medications Medications (Trade) Dose Ordered Sig/David Route PRN Reason Start Time Stop Time Status Last Admin Dose Admin Barium Sulfate (Readi-Cat 2) 450 ml NOW PRN ORAL Radiology Procedure 08/28/20 23:45 08/30/20 23:44 Barium Sulfate (Varibar Honey) 250 ml NOW PRN MC RAD 08/27/20 18:15 08/30/20 18:08 Barium Sulfate (Varibar Espino) 240 ml NOW PRN MC RAD 08/27/20 18:15 08/30/20 18:08 Barium Sulfate (Varibar Pudding) 230 ml NOW PRN MC RAD 08/27/20 18:15 08/30/20 18:08 Barium Sulfate (Varibar Thin Liquid powder) 148 gm NOW PRN MC RAD 08/27/20 18:15 08/30/20 18:08 Ceftriaxone Sodium 1 gm/ Dextrose 55 ml @ 110 mls/hr Q24H IVPB 08/28/20 16:00 09/04/20 15:59 08/28/20 16:33 Dextrose/Sodium Chloride 1,000 ml @ 100 mls/hr Q10H IV 08/27/20 18:36 09/26/20 18:35 08/28/20 00:38 Ondansetron HCl (Zofran) 4 mg Q4H PRN IVP Nausea & Vomiting 08/29/20 09:15 09/28/20 09:14 Pantoprazole (Protonix) 40 mg EVERY 12 HOURS IVP 08/28/20 21:00 09/27/20 20:59 08/29/20 08:27 Assessment/Plan Assessment/Plan: Hematology Consultaiton [place] MD: Gabrielle Moscoso RFC: Prostate cancer ID Family called EMS because the patient has been weak. He has a history of prostate cancer and is undergoing treatment at [facility]. Apparently was supposed to get a biopsy today but they could not get him to the facility because of weakness. He has been having dry heaves and decreased appetite. He is moved his bowels last in the last 2 to 3 days but says for the last week he has not been moving his bowels well at all. He denies any dysuria. He has had pain in his groin but does not radiate. He has been taking ibuprofen and [place] to treat the pain and denies pain at this time. He denies fevers or chills, productive cough or active vomiting. psa was noted to be 1522 The patient had a negative Covid test this week. The daughter apparently states that he has been getting infusions at [facility]. Apparently a liver biopsy was recently done also. Daughters states that yesterday he did not recognize her initially but then did. Patient denies most ROS questions. Coded Allergies: No Known Allergies (Unverified , 01/05/17) COVID-19 Screening Contact w/high risk pt: No Experienced COVID-19 symptoms?: No COVID-19 Testing performed SUPPLEMENTAL NURSE: Yes COVID-19 Screening: Negative COVID-19 COVID-19 Testing Source: nasal Patient History Past Medical History: see triage record Social History: Reports: alcohol use - daughter doesn't think problem but saw an open beer today; Denies: smoking, drug use Social History Narrative From home - lives by self (Daughter in [place] called 911) Reviewed Nursing Documentation: PMH: Agreed; PSxH: Agreed Nursing Documentation-PMH Past Medical History: No History, Except For Hx Cancer: Yes - prostate Review of Systems All Other Systems: negative except mentioned in HPI Physical Exam Vitals: reviewed General Appearance: other - Slow speaking, Chronically Ill Head: normocephalic, atraumatic Respiratory: lungs clear, normal breath sounds Cardiovascular: regular rate, rhythm Gastrointestinal: non tender, distended, other - fluid wave Genitourinary: no CVA tenderness Musculoskeletal: back normal Neurologic: alert, DTRs symmetric, motor weakness - generalized, other - slightly lethargic Psychiatric: other - Initially refusing care and suspicious Skin: warm/dry, pallor - Sallow ++hernández Labs; reviewed Imaging: noted Assessment and Recs # Metastatic prostate cancer - psa 1522 --> has been getting infusion at [facility] --> liver biopsy was recently done --> PSA remains markedly elevated --> continue outpatient onco care --> uro eval # Anemia of chronic disease due to underlying chronic medical issues, Multifactorial --> Anemia w/u has been ordered --> No evidence of hemolysis is noted, peripheral smear has been reviewed. --> Hgb goal >7. Transfuse prn. --> Epogen or iron at this time is not particularly indicated --> If unable to determine source, will need bone marrow biopsy --> hgb 8.2 # Encephalopathy likely due to liver dysfucntion --> lactulose/rifaxamin per gi # Liver failure likely due to cancer --> ptt/inr high # Ascites --> para as needed --> pain management # Bony metastasis # Renal insufficiency # Elevated INR Time of note does not necessarily correspond to the time the patient was seen. Appreciate consultation greatly. Cr Schmid MD Aug 29, 2020 09:37
--- NOTE | 2020-08-29 10:10 | NUR ---
NURSE NOTES: Rene for CT came to see patient; Rene said will come back to take patient down for CT; Charge nurse, Rebecca laureano;
--- NOTE | 2020-08-29 11:03 | NUR ---
NURSE NOTES: Patient left the floor for CT with Rene;
--- NOTE | 2020-08-29 11:47 | Diagnostic Imaging Report ---
EXAM: CT Abdomen and Pelvis Without Intravenous Contrast CLINICAL HISTORY: ABN LABS TECHNIQUE: Axial computed tomography images of the abdomen and pelvis without intravenous contrast. CTDI is 7.7 mGy and DLP is 498.2 mGy-cm. One or more of the following dose reduction techniques were used: automated exposure control, adjustment of the mA and/or kV according to patient size, use of iterative reconstruction technique. Coronal and sagittal reformatted images were created and reviewed. COMPARISON: 08/28/2020 FINDINGS: Lung bases: Unremarkable. No mass. No consolidation. Pleural space: Small left and trace right pleural effusions. ABDOMEN: Liver: Innumerable hepatic metastatic masses with severe hepatic enlargement. Gallbladder and bile ducts: Unremarkable. No calcified stones. No ductal dilation. Pancreas: Unremarkable. No ductal dilation. Spleen: Unremarkable. No splenomegaly. Adrenals: Unremarkable. No mass. Kidneys and ureters: Unremarkable. No obstructing stones. No hydronephrosis. Stomach and bowel: Unremarkable. No obstruction. No mucosal thickening. PELVIS: Appendix: No findings to suggest acute appendicitis. Bladder: Thick-walled urinary bladder with Monzon catheter, correlate to exclude UTI. No stones. Reproductive: Unremarkable as visualized. ABDOMEN and PELVIS: Intraperitoneal space: Mild ascites. No free air. Bones/joints: Diffuse osseous sclerotic metastatic disease with thickened right-sided scattered ribs. No acute fracture. No dislocation. Soft tissues: Mild anasarca. Vasculature: Unremarkable. No abdominal aortic aneurysm. Lymph nodes: Unremarkable. No enlarged lymph nodes. IMPRESSION: 1. Thick-walled urinary bladder with Monzon catheter, correlate to exclude UTI. 2. Diffuse osseous metastatic last disease probably represents disseminated prostate cancer. 3. Innumerable hepatic metastatic masses with severe hepatic enlargement. 4. Recommend outpatient urology consultation for cystoscopy and exclusion of urinary bladder neoplasm. 5. Small left and trace right pleural effusions. 6. Mild ascites. Mild anasarca. <MYCVCSECTION> Communications: 08/29/20 11:54 Call Nurse Called MARIANA Aaron on 08/29 11:54 (-08: 00)
[2020-08-29 12:00] VITALS: BP 109/67
--- NOTE | 2020-08-29 13:05 | Diagnostic Imaging Report ---
EXAM: US Duplex Bilateral Lower Extremities Veins CLINICAL HISTORY: DVT TECHNIQUE: Real-time duplex ultrasound scan of the bilateral lower extremity veins integrating B-mode two-dimensional vascular structure, Doppler spectral analysis, color flow Doppler imaging and compression. COMPARISON: No relevant prior studies available. FINDINGS: Right deep veins: Unremarkable. No DVT in the right common femoral, femoral, proximal deep femoral or popliteal veins. The veins demonstrate normal color flow, are normally compressible, with normal phasic flow and/or augmentation response. Right superficial veins: Unremarkable. No thrombus in the visualized right great saphenous vein. Left deep veins: Unremarkable. No DVT in the left common femoral, femoral, proximal deep femoral or popliteal veins. The veins demonstrate normal color flow, are normally compressible, with normal phasic flow and/or augmentation response. Left superficial veins: Unremarkable. No thrombus in the visualized left great saphenous vein. Soft tissues: No acute findings. No popliteal cyst. IMPRESSION: No DVT.
--- NOTE | 2020-08-29 14:10 | NUR ---
NURSE NOTES: I called and left a voice message to Md Arguello regarding CT ABD result;
--- NOTE | 2020-08-29 14:28 | Nephrology Progress Note ---
Assessment/Plan Problem List: (1) Renal insufficiency (2) Liver failure (3) Prostate cancer (4) Bony metastasis (5) Anemia (6) Encephalopathy Assessment 59-year-old male presents with severe weakness. History of prostate cancer. Renal failure, serum creatinine 1.5 Severe anemia Elevated LFTs and bilirubin Plan August 29: Allopurinol 300 mg twice a day ordered. Folic acid ordered. Continue per consultants. Anemia work-up Kidney and abdominal ultrasound Monitor renal parameters Urine studies PSA level Avoid nephrotoxic's IV fluid Continue per consultants Subjective ROS Limited/Unobtainable: Yes Objective Objective Last 24 Hour Vital Signs Date Time Temp Pulse Resp B/P (MAP) Pulse Ox O2 Delivery O2 Flow Rate FiO2 08/29/20 12:00 96.8 86 16 109/67 (81) 99 08/29/20 09:00 Room Air 08/29/20 08:00 97.4 81 15 109/66 (80) 97 08/29/20 04:00 97.8 74 18 120/68 (85) 96 08/28/20 23:41 98.1 79 17 123/66 (85) 96 08/28/20 21:00 Room Air 08/28/20 20:00 97.9 90 18 145/85 (105) 99 08/28/20 16:50 98.0 85 20 130/84 (99) 08/28/20 16:00 98.0 90 20 128/84 (99) Intake and Output 08/28/20 08/29/20 19:00 07:00 Intake Total 710 ml Output Total 300 ml 250 ml Balance 410 ml -250 ml Intake IV Total 710 ml Output Urine Total 300 ml 250 ml # Voids 1 Current Medications Medications (Trade) Dose Ordered Sig/David Route PRN Reason Start Time Stop Time Status Last Admin Dose Admin Allopurinol (allopurinoL) 300 mg ONCE ORAL 08/29/20 13:15 08/29/20 14:30 08/29/20 13:53 Allopurinol (allopurinoL) 300 mg Q12HR ORAL 08/29/20 21:00 09/28/20 20:59 Barium Sulfate (Readi-Cat 2) 450 ml NOW PRN ORAL Radiology Procedure 08/28/20 23:45 08/30/20 23:44 Barium Sulfate (Varibar Honey) 250 ml NOW PRN MC RAD 08/27/20 18:15 08/30/20 18:08 Barium Sulfate (Varibar [place]) 240 ml NOW PRN MC RAD 08/27/20 18:15 08/30/20 18:08 Barium Sulfate (Varibar Pudding) 230 ml NOW PRN MC RAD 08/27/20 18:15 08/30/20 18:08 Barium Sulfate (Varibar Thin Liquid powder) 148 gm NOW PRN MC RAD 08/27/20 18:15 08/30/20 18:08 Ceftriaxone Sodium 1 gm/ Dextrose 55 ml @ 110 mls/hr Q24H IVPB 08/28/20 16:00 09/04/20 15:59 08/28/20 16:33 Dextrose/Sodium Chloride 1,000 ml @ 100 mls/hr Q10H IV 08/27/20 18:36 09/26/20 18:35 08/28/20 00:38 Ondansetron HCl (Zofran) 4 mg Q4H PRN IVP Nausea & Vomiting 08/29/20 09:15 09/28/20 09:14 08/29/20 12:51 Pantoprazole (Protonix) 40 mg EVERY 12 HOURS IVP 08/28/20 21:00 09/27/20 20:59 08/29/20 08:27 Laboratory Tests 08/29/20 07:14: White Blood Count 4.8, Red Blood Count 3.12L, Hemoglobin 8.2L, Hematocrit 26.0L, Mean Corpuscular Volume 83, Mean Corpuscular Hemoglobin 26.4L, Mean Corpuscular Hemoglobin Concent 31.7L, Red Cell Distribution Width 23.4H, Platelet Count 75L, Mean Platelet Volume 7.0, Neutrophils (%) (Auto) , Lymphocytes (%) (Auto) , Monocytes (%) (Auto) , Eosinophils (%) (Auto) , Basophils (%) (Auto) , Differential Total Cells Counted 100, Neutrophils % (Manual) 78H, Lymphocytes % (Manual) 15L, Monocytes % (Manual) 3, Eosinophils % (Manual) 1, Basophils % (Manual) 0, Band Neutrophils 3, Nucleated Red Blood Cells 2, Platelet Estimate DecreasedL, Platelet Morphology Normal, Polychromasia 1+, Hypochromasia 2+, Anisocytosis 3+, Target Cells Occasional, Sodium Level 136, Potassium Level 3.5, Chloride Level 104, Carbon Dioxide Level 22, Anion Gap 10, Blood Urea Nitrogen 22H, Creatinine 1.3, Estimat Glomerular Filtration Rate > 60, Glucose Level 134H , Uric Acid 13.5H, Calcium Level 8.5, Phosphorus Level 2.7, Magnesium Level 1.9, Total Bilirubin 2.9H, Direct Bilirubin 2.5H, Aspartate Amino Transf (AST/SGOT) 127H, Alanine Aminotransferase (ALT/SGPT) 42, Alkaline Phosphatase 921H, Ammonia 38H, Total Creatine Kinase 280, C-Reactive Protein, Quantitative 9.8H, Pro-B-Type Natriuretic Peptide 823H, Total Protein 5.5L, Albumin 2.0L, Globulin 3.5, Albumin/Globulin Ratio 0.6L, Vitamin B12 Level > 2000H Height (Feet): 6 Height (Inches): 0.00 Weight (Pounds): 205 General Appearance: lethargic, mild distress Cardiovascular: normal rate Respiratory/Chest: decreased breath sounds Abdomen: distended Dean Brink MD Aug 29, 2020 14:28
--- NOTE | 2020-08-29 14:33 | NUR ---
NURSE NOTES: Pt resting quietly in bed noted no resp distress ,turned and repositioned.
[2020-08-29 16:00] VITALS: BP 123/82
[2020-08-29] MEDS: Lactulose 20gm/30ml UDC ORAL SCH ×2 (16:10→18:00)
[2020-08-29] MEDS: cefTRIAXone 1 GM in D5W 55 ML IVPB SCH (16:11)
--- NOTE | 2020-08-29 19:22 | NUR ---
NURSE HAND-OFF: Important Events on Shift:Venous duplex on Richie Low Ext Negative for DVT; CT ABD metastatic probaly disseminated prostate Cancer and Hepatic metastatic masses with sever Hepatic enlargment; left a voice message to reporte to MD Arguello; encodrsed to incoming nurse, MARIANA Ott Patient Status: Diet: Pending Orders: Pending Results/Labs: Pending MD notification: Latest Vital Signs: Temperature 97.6 , Pulse 67 , B/P 123 /82 , Respiratory Rate 20 , O2 SAT 99 , Room Air, O2 Flow Rate . Vital Sign Comment: Latest [place]mal[place] Fall Score: 50 Fall Risk: High Risk Safety Measures: Call light Within Reach, Bed Alarm Zone 2, Side Rails Side Rails x3, Bed position Low and Locked. Fall Precautions: Yellow Socks Door Sign Patient Fall Education Report given to .
--- NOTE | 2020-08-29 19:22 | NUR ---
NURSE NOTES: Patient in bed, able to make needs known. Lethargic. On room air with no signs of distress or SOB. [place] in place, and draining to gravity. Bed locked and in lowest position. Bed alarm on. Call light within reach. Will continue plan of care.
--- NOTE | 2020-08-29 19:39 | General Progress Note ---
Subjective Allergies: Coded Allergies: No Known Allergies (Unverified , 01/05/17) Subjective weak unable to eat nausea CT noted - metastatic prostate CA Objective Last 24 Hour Vital Signs Date Time Temp Pulse Resp B/P (MAP) Pulse Ox O2 Delivery O2 Flow Rate FiO2 08/29/20 16:00 97.6 67 20 123/82 (96) 99 08/29/20 12:00 96.8 86 16 109/67 (81) 99 08/29/20 09:00 Room Air 08/29/20 08:00 97.4 81 15 109/66 (80) 97 08/29/20 04:00 97.8 74 18 120/68 (85) 96 08/28/20 23:41 98.1 79 17 123/66 (85) 96 08/28/20 21:00 Room Air 08/28/20 20:00 97.9 90 18 145/85 (105) 99 Intake and Output 08/28/20 08/29/20 19:00 07:00 Intake Total 710 ml 100 ml Output Total 300 ml 250 ml Balance 410 ml -150 ml Intake IV Total 710 ml 100 ml Output Urine Total 300 ml 250 ml # Voids 1 Laboratory Tests 08/29/20 07:14: White Blood Count 4.8, Red Blood Count 3.12L, Hemoglobin 8.2L, Hematocrit 26.0L, Mean Corpuscular Volume 83, Mean Corpuscular Hemoglobin 26.4L, Mean Corpuscular Hemoglobin Concent 31.7L, Red Cell Distribution Width 23.4H, Platelet Count 75L, Mean Platelet Volume 7.0, Neutrophils (%) (Auto) , Lymphocytes (%) (Auto) , Monocytes (%) (Auto) , Eosinophils (%) (Auto) , Basophils (%) (Auto) , Differential Total Cells Counted 100, Neutrophils % (Manual) 78H, Lymphocytes % (Manual) 15L, Monocytes % (Manual) 3, Eosinophils % (Manual) 1, Basophils % (Manual) 0, Band Neutrophils 3, Nucleated Red Blood Cells 2, Platelet Estimate DecreasedL, Platelet Morphology Normal, Polychromasia 1+, Hypochromasia 2+, Anisocytosis 3+, Target Cells Occasional, Sodium Level 136, Potassium Level 3.5, Chloride Level 104, Carbon Dioxide Level 22, Anion Gap 10, Blood Urea Nitrogen 22H, Creatinine 1.3, Estimat Glomerular Filtration Rate > 60, Glucose Level 134H , Uric Acid 13.5H, Calcium Level 8.5, Phosphorus Level 2.7, Magnesium Level 1.9, Total Bilirubin 2.9H, Direct Bilirubin 2.5H, Aspartate Amino Transf (AST/SGOT) 127H, Alanine Aminotransferase (ALT/SGPT) 42, Alkaline Phosphatase 921H, Ammonia 38H, Total Creatine Kinase 280, C-Reactive Protein, Quantitative 9.8H, Pro-B-T ype Natriuretic Peptide 823H, Total Protein 5.5L, Albumin 2.0L, Globulin 3.5, Albumin/Globulin Ratio 0.6L, Vitamin B12 Level > 2000H Height (Feet): 6 Height (Inches): 0.00 Weight (Pounds): 205 Objective Weak, ill appearing NCAT supple CTA RR Abd distended, (+) hepatomegally (+) edema Assessment/Plan Assessment/Plan: Assessment - metastatic prostate CA - hepatomegally - nausea - edema - poor prognosis Recommendations - supportive care - oncology opinion - SCD - PO as tolerated. Agus Arguello MD Aug 29, 2020 19:39
[2020-08-29 20:00] VITALS: BP 117/80
--- NOTE | 2020-08-29 21:53 | NUR ---
NURSE NOTES: Patient's IV noted to be dislodged from patient's arm. Attempted to reinsert but patient is a very hard stick. Will attempt again soon.
--- NOTE | 2020-08-29 21:54 | NUR ---
NURSE NOTES: Patient lethargic, refusing to take PO medication at this time despite RN explaining risks and benefits and patient verbalizing understanding. stereotype caster made aware.
--- NOTE | 2020-08-29 23:29 | General Progress Note ---
Subjective ROS Limited/Unobtainable: Yes Allergies: Coded Allergies: No Known Allergies (Unverified , 01/05/17) Objective Last 24 Hour Vital Signs Date Time Temp Pulse Resp B/P (MAP) Pulse Ox O2 Delivery O2 Flow Rate FiO2 08/29/20 20:52 Room Air 08/29/20 20:00 98.2 96 20 117/80 (92) 99 08/29/20 16:00 97.6 67 20 123/82 (96) 99 08/29/20 12:00 96.8 86 16 109/67 (81) 99 08/29/20 09:00 Room Air 08/29/20 08:00 97.4 81 15 109/66 (80) 97 08/29/20 04:00 97.8 74 18 120/68 (85) 96 08/28/20 23:41 98.1 79 17 123/66 (85) 96 Intake and Output 08/28/20 08/29/20 19:00 07:00 Intake Total 710 ml 100 ml Output Total 300 ml 250 ml Balance 410 ml -150 ml Intake IV Total 710 ml 100 ml Output Urine Total 300 ml 250 ml # Voids 1 Laboratory Tests 08/29/20 07:14: White Blood Count 4.8, Red Blood Count 3.12L, Hemoglobin 8.2L, Hematocrit 26.0L, Mean Corpuscular Volume 83, Mean Corpuscular Hemoglobin 26.4L, Mean Corpuscular Hemoglobin Concent 31.7L, Red Cell Distribution Width 23.4H, Platelet Count 75L, Mean Platelet Volume 7.0, Neutrophils (%) (Auto) , Lymphocytes (%) (Auto) , Monocytes (%) (Auto) , Eosinophils (%) (Auto) , Basophils (%) (Auto) , Differential Total Cells Counted 100, Neutrophils % (Manual) 78H, Lymphocytes % (Manual) 15L, Monocytes % (Manual) 3, Eosinophils % (Manual) 1, Basophils % (Manual) 0, Band Neutrophils 3, Nucleated Red Blood Cells 2, Platelet Estimate DecreasedL, Platelet Morphology Normal, Polychromasia 1+, Hypochromasia 2+, Anisocytosis 3+, Target Cells Occasional, Sodium Level 136, Potassium Level 3.5, Chloride Level 104, Carbon Dioxide Level 22, Anion Gap 10, Blood Urea Nitrogen 22H, Creatinine 1.3, Estimat Glomerular Filtration Rate > 60, Glucose Level 134H , Uric Acid 13.5H, Calcium Level 8.5, Phosphorus Level 2.7, Magnesium Level 1.9, Total Bilirubin 2.9H, Direct Bilirubin 2.5H, Aspartate Amino Transf (AST/SGOT) 127H, Alanine Aminotransferase (ALT/SGPT) 42, Alkaline Phosphatase 921H, Ammonia 38H, Total Creatine Kinase 280, C-Reactive Protein, Quantitative 9.8H, Pro-B-Type Natriuretic Peptide 823H, Total Protein 5.5L, Albumin 2.0L, Globulin 3.5, Albumin/Globulin Ratio 0.6L, Vitamin B12 Level > 2000H Height (Feet): 6 Height (Inches): 0.00 Weight (Pounds): 205 Assessment/Plan Problem List: (1) Encephalopathy ICD Codes: G93.40 - Encephalopathy, unspecified SNOMED: 65660438 (2) Liver failure ICD Codes: K72.90 - Hepatic failure, unspecified without coma SNOMED: 94647933 Qualifiers: Qualified Codes: K72.90 - Hepatic failure, unspecified without coma (3) Prostate cancer ICD Codes: C61 - Malignant neoplasm of prostate SNOMED: 287952354 (4) Bony metastasis ICD Codes: C79.51 - Secondary malignant neoplasm of bone SNOMED: 85939152 (5) Anemia ICD Codes: D64.9 - Anemia, unspecified SNOMED: 245459933 Qualifiers: Qualified Codes: D64.9 - Anemia, unspecified Status: progressing Assessment/Plan: waxing and waning mentation encephalopathy elevated lft anemia arf dehydration reviewed chart and labs Gabrielle Ortiz MD Aug 29, 2020 23:29
[2020-08-30] VITALS: BP 121/78
[2020-08-30 04:00] VITALS: BP 124/82
[2020-08-30] MEDS: D5NS 1,000 ML IV SCH ×3 (04:20→23:39)
--- NOTE | 2020-08-30 06:04 | NUR ---
NURSE NOTES: Unable to obtain IV access despite attempts by multiple RNs and vein finder. Patient still needs IVF and antibiotics. Spoke with Dr. Schmid; new order for PICC line received.
--- NOTE | 2020-08-30 06:28 | Hematology/Onc Progress Note ---
Assessment/Plan Assessment/Plan Assessment and Recs # Metastatic prostate cancer - psa 1522 --> has been getting infusion at [facility] --> liver biopsy was recently done --> PSA remains markedly elevated --> continue outpatient onco care --> uro eval # Anemia of chronic disease due to underlying chronic medical issues, Multifactorial --> Anemia w/u has been ordered --> No evidence of hemolysis is noted, peripheral smear has been reviewed. --> Hgb goal >7. Transfuse prn. --> Epogen or iron at this time is not particularly indicated --> If unable to determine source, will need bone marrow biopsy --> hgb 8.2 # Encephalopathy likely due to liver dysfucntion --> lactulose/rifaxamin per gi # Liver failure likely due to cancer --> ptt/inr high # Ascites --> para as needed --> pain management # Bony metastasis # Renal insufficiency # Elevated INR Time of note does not necessarily correspond to the time the patient was seen. Appreciate consultation greatly. Subjective Constitutional: Denies: no symptoms, chills, fever, malaise, weakness, other HEENT: Denies: no symptoms, eye pain, blurred vision, tearing, double vision, ear pain, ear discharge, nose pain, nose congestion, throat pain, throat swelling, mouth pain, mouth swelling, other Cardiovascular: Denies: no symptoms, chest pain, edema, irregular heart rate, lightheadedness, palpitations, syncope, other Respiratory: Denies: no symptoms, cough, shortness of breath, SOB with excertion, SOB at rest, sputum, wheezing, other Genitourinary: Denies: no symptoms, burning, discharge, frequency, flank pain, hematuria, incontinence, pain, urgency, other Neurologic/Psychiatric: Denies: no symptoms, anxiety, depressed, emotional problems, headache, numbness, paresthesia, pre-existing deficit, seizure, tingling, tremors, weakness, other Endocrine: Denies: no symptoms, excessive sweating, flushing, intolerance to cold, intolerance to heat, increased hunger, increased thirst, increased urine, unexplained weight gain, unexplained weight loss, other Hematologic/Lymphatic: Denies: no symptoms, anemia, easy bleeding, easy bruising, adenopathy, other Allergies: Coded Allergies: No Known Allergies (Unverified , 01/05/17) Subjective 08/30 very agitated, may need picc line, have dw rn Objective Objective Current Medications Medications (Trade) Dose Ordered Sig/David Route PRN Reason Start Time Stop Time Status Last Admin Dose Admin Allopurinol (allopurinoL) 300 mg Q12HR ORAL 08/29/20 21:00 09/28/20 20:59 Barium Sulfate (Readi-Cat 2) 450 ml NOW PRN ORAL Radiology Procedure 08/28/20 23:45 08/30/20 23:44 Barium Sulfate (Varibar Honey) 250 ml NOW PRN MC RAD 08/27/20 18:15 08/30/20 18:08 Barium Sulfate (Varibar [place]) 240 ml NOW PRN MC RAD 08/27/20 18:15 08/30/20 18:08 Barium Sulfate (Varibar Pudding) 230 ml NOW PRN MC RAD 08/27/20 18:15 08/30/20 18:08 Barium Sulfate (Varibar Thin Liquid powder) 148 gm NOW PRN MC RAD 08/27/20 18:15 08/30/20 18:08 Ceftriaxone Sodium 1 gm/ Dextrose 55 ml @ 110 mls/hr Q24H IVPB 08/28/20 16:00 09/04/20 15:59 08/29/20 16:11 Chlorhexidine Gluconate ([place]-Hex 2%) 1 applic DAILY@2000 TOPIC 08/30/20 20:00 11/28/20 19:59 Dextrose/Sodium Chloride 1,000 ml @ 100 mls/hr Q10H IV 08/27/20 18:36 09/26/20 18:35 08/29/20 16:21 Folic Acid (Folate) 5 mg DAILY ORAL 08/29/20 14:30 09/28/20 14:29 08/29/20 16:10 Lactulose (Cephulac) 20 gm BID ORAL 08/29/20 14:30 09/28/20 14:29 08/29/20 16:10 Ondansetron HCl (Zofran) 4 mg Q4H PRN IVP Nausea & Vomiting 08/29/20 09:15 09/28/20 09:14 08/29/20 12:51 Pantoprazole (Protonix) 40 mg EVERY 12 HOURS IVP 08/28/20 21:00 09/27/20 20:59 08/29/20 08:27 Last 24 Hour Vital Signs Date Time Temp Pulse Resp B/P (MAP) Pulse Ox O2 Delivery O2 Flow Rate FiO2 08/30/20 00:00 98.6 76 20 121/78 (92) 98 08/29/20 20:52 Room Air 08/29/20 20:00 98.2 96 20 117/80 (92) 99 08/29/20 16:00 97.6 67 20 123/82 (96) 99 08/29/20 12:00 96.8 86 16 109/67 (81) 99 08/29/20 09:00 Room Air 08/29/20 08:00 97.4 81 15 109/66 (80) 97 08/29/20 04:00 97.8 74 18 120/68 (85) 96 08/28/20 23:41 98.1 79 17 123/66 (85) 96 08/28/20 21:00 Room Air 08/28/20 20:00 97.9 90 18 145/85 (105) 99 08/28/20 16:50 98.0 85 20 130/84 (99) 08/28/20 16:00 98.0 90 20 128/84 (99) 08/28/20 12:51 97.6 91 20 131/91 (104) 08/28/20 12:36 97.0 83 20 130/77 (94) 08/28/20 12:00 97.0 83 20 130/77 (94) 08/28/20 09:00 Room Air 08/28/20 08:00 97.9 87 20 124/81 (95) Intake and Output 08/29/20 08/30/20 19:00 07:00 Intake Total 910 ml 100 ml Output Total 300 ml Balance 610 ml 100 ml Intake IV Total 910 ml 100 ml Output Urine Total 300 ml Labs Test 08/27/20 14:32 08/27/20 16:40 08/28/20 05:10 08/29/20 07:14 White Blood Count 5.2 K/UL (4.8-10.8) 5.7 K/UL (4.8-10.8) 4.8 K/UL (4.8-10.8) Red Blood Count 3.04 M/UL (4.70-6.10) 2.82 M/UL (4.70-6.10) 3.12 M/UL (4.70-6.10) Hemoglobin 8.2 G/DL (14.2-18.0) 7.5 G/DL (14.2-18.0) 8.2 G/DL (14.2-18.0) Hematocrit 26.7 % (42.0-52.0) 24.4 % (42.0-52.0) 26.0 % (42.0-52.0) Mean Corpuscular Volume 88 FL (80-99) 86 FL (80-99) 83 FL (80-99) Mean Corpuscular Hemoglobin 26.8 PG (27.0-31.0) 26.5 PG (27.0-31.0) 26.4 PG (27.0-31.0) Mean Corpuscular Hemoglobin Concent 30.5 G/DL (32.0-36.0) 30.7 G/DL (32.0-36.0) 31.7 G/DL (32.0-36.0) Red Cell Distribution Width 25.6 % (11.6-14.8) 26.2 % (11.6-14.8) 23.4 % (11.6-14.8) Platelet Count 127 K/UL (150-450) 120 K/UL (150-450) 75 K/UL (150-450) Mean Platelet Volume 7.2 FL (6.5-10.1) 8.5 FL (6.5-10.1) 7.0 FL (6.5-10.1) Neutrophils (%) (Auto) % (45.0-75.0) % (45.0-75.0) % (45.0-75.0) Lymphocytes (%) (Auto) % (20.0-45.0) % (20.0-45.0) % (20.0-45.0) Monocytes (%) (Auto) % (1.0-10.0) % (1.0-10.0) % (1.0-10.0) Eosinophils (%) (Auto) % (0.0-3.0) % (0.0-3.0) % (0.0-3.0) Basophils (%) (Auto) % (0.0-2.0) % (0.0-2.0) % (0.0-2.0) Differential Total Cells Counted 100 100 100 Neutrophils % (Manual) 83 % (45-75) 85 % (45-75) 78 % (45-75) Lymphocytes % (Manual) 12 % (20-45) 11 % (20-45) 15 % (20-45) Monocytes % (Manual) 4 % (1-10) 4 % (1-10) 3 % (1-10) Eosinophils % (Manual) 0 % (0-3) 0 % (0-3) 1 % (0-3) Basophils % (Manual) 1 % (0-2) 0 % (0-2) 0 % (0-2) Band Neutrophils 0 % (0-8) 0 % (0-8) 3 % (0-8) Platelet Estimate Decreased Decreased Decreased Platelet Morphology Normal Normal Normal Hypochromasia 1+ 2+ 2+ Anisocytosis 2+ 3+ 3+ Prothrombin Time 16.0 SEC (9.30-11.50) Prothromb Time International Ratio 1.5 (0.9-1.1) Activated Partial Thromboplast Time 30 SEC (23-33) Sodium Level 138 MMOL/L (136-145) 137 MMOL/L (136-145) 136 MMOL/L (136-145) Potassium Level 3.6 MMOL/L (3.5-5.1) 3.9 MMOL/L (3.5-5.1) 3.5 MMOL/L (3.5-5.1) Chloride Level 102 MMOL/L (98-107) 102 MMOL/L (98-107) 104 MMOL/L (98-107) Carbon Dioxide Level 23 MMOL/L (21-32) 22 MMOL/L (21-32) 22 MMOL/L (21-32) Anion Gap 13 mmol/L (5-15) 13 mmol/L (5-15) 10 mmol/L (5-15) Blood Urea Nitrogen 24 mg/dL (7-18) 25 mg/dL (7-18) 22 mg/dL (7-18) Creatinine 1.4 MG/DL (0.55-1.30) 1.5 MG/DL (0.55-1.30) 1.3 MG/DL (0.55-1.30) Estimat Glomerular Filtration Rate > 60 mL/min (>60) 58.4 mL/min (>60) > 60 mL/min (>60) Glucose Level 100 MG/DL (74-106) 93 MG/DL (74-106) 134 MG/DL (74-106) Lactic Acid Level 1.40 mmol/L (0.4-2.0) Uric Acid 14.6 MG/DL (2.6-7.2) 13.5 MG/DL (2.6-7.2) Calcium Level 8.8 MG/DL (8.5-10.1) 8.9 MG/DL (8.5-10.1) 8.5 MG/DL (8.5-10.1) Magnesium Level 1.9 MG/DL (1.8-2.4) 1.9 MG/DL (1.8-2.4) Ferritin 1091 NG/ML (8-388) Total Bilirubin 3.4 MG/DL (0.2-1.0) 3.3 MG/DL (0.2-1.0) 2.9 MG/DL (0.2-1.0) Direct Bilirubin 3.0 MG/DL (0.0-0.3) 2.7 MG/DL (0.0-0.3) 2.5 MG/DL (0.0-0.3) Aspartate Amino Transf (AST/SGOT) 159 U/L (15-37) 151 U/L (15-37) 127 U/L (15-37) Alanine Aminotransferase (ALT/SGPT) 49 U/L (12-78) 47 U/L (12-78) 42 U/L (12-78) Alkaline Phosphatase 1042 U/L (46-116) 999 U/L (46-116) 921 U/L (46-116) Ammonia 27 umol/L (11-32) 38 umol/L (11-32) Lactate Dehydrogenase 926 U/L (81-234) Total Creatine Kinase 324 U/L (26-308) 280 U/L (26-308) Troponin I 0.000 ng/mL (0.000-0.056) C-Reactive Protein, Quantitative 13.1 mg/dL (0.00-0.90) 9.8 mg/dL (0.00-0.90) Pro-B-Type Natriuretic Peptide 1085 pg/mL (0-125) 823 pg/mL (0-125) Total Protein 6.2 G/DL (6.4-8.2) 6.0 G/DL (6.4-8.2) 5.5 G/DL (6.4-8.2) Albumin 2.3 G/DL (3.4-5.0) 2.2 G/DL (3.4-5.0) 2.0 G/DL (3.4-5.0) Globulin 3.9 g/dL 3.8 g/dL 3.5 g/dL Albumin/Globulin Ratio 0.6 (1.0-2.7) 0.6 (1.0-2.7) 0.6 (1.0-2.7) Lipase 321 U/L (73-393) Thyroid Stimulating Hormone (TSH) 3.015 uiU/mL (0.358-3.740) Urine Color Yellow Urine Appearance Turbid Urine pH 6 (4.5-8.0) Urine Specific [place] 1.010 (1.005-1.035) Urine Protein 2+ (NEGATIVE) Urine Glucose (UA) Negative (NEGATIVE) Urine Ketones 1+ (NEGATIVE) Urine Blood 2+ (NEGATIVE) Urine Nitrite Negative (NEGATIVE) Urine Bilirubin 1+ (NEGATIVE) Urine Ictotest Negative (NEGATIVE) Urine Urobilinogen 8 MG/DL (0.0-1.0) Urine Leukocyte Esterase Negative (NEGATIVE) Urine RBC 10-15 /HPF (0 - 0) Urine WBC 0-2 /HPF (0 - 0) Urine Squamous Epithelial Cells None /LPF (NONE/OCC) Urine Amorphous Sediment Many /LPF (NONE) Urine Bacteria Many /HPF (NONE) Urine Opiates Screen Negative (NEGATIVE) Urine Barbiturates Screen Negative (NEGATIVE) Phencyclidine (PCP) Screen Negative (NEGATIVE) Urine Amphetamines Screen Negative (NEGATIVE) Urine Benzodiazepines Screen Negative (NEGATIVE) Urine Cocaine Screen Negative (NEGATIVE) Urine Marijuana (THC) Screen Negative (NEGATIVE) Nucleated Red Blood Cells 1 /100 WBC 2 /100 WBC Polychromasia 1+ 1+ Target Cells Occasional Occasional Tear Drop Cells Occasional Iron Level 159 ug/dL (50-175) Total Iron Binding Capacity 171 ug/dL (250-450) Percent Iron Saturation 93 % (15-50) Unsaturated Iron Binding 12 ug/dL (112-346) Triglycerides Level 172 MG/DL (30-150) Cholesterol Level 204 MG/DL (< 200) LDL Cholesterol 126 mg/dL (<100) HDL Cholesterol 13 MG/DL (40-60) Cholesterol/HDL Ratio 15.7 (3.3-4.4) Prostate Specific Antigen 1522.57 ng/mL (0.13-4.0) Folate 1.2 NG/ML (8.6-58.9) Phosphorus Level 2.7 MG/DL (2.5-4.9) Vitamin B12 Level > 2000 PG/ML (193-986) Height (Feet): 6 Height (Inches): 0.00 Weight (Pounds): 205 Objective Physical Exam Vitals: reviewed General Appearance: other - Slow speaking, Chronically Ill Head: normocephalic, atraumatic Respiratory: lungs clear, normal breath sounds Cardiovascular: regular rate, rhythm Gastrointestinal: non tender, distended, other - fluid wave Genitourinary: no CVA tenderness Musculoskeletal: back normal Neurologic: alert, DTRs symmetric, motor weakness - generalized, other - slightly lethargic Psychiatric: other - Initially refusing care and suspicious Skin: warm/dry, pallor - [place]allow ++Cr Haddad MD Aug 30, 2020 06:28
--- NOTE | 2020-08-30 07:53 | NUR ---
NURSE HAND-OFF: Important Events on Shift: No IV access; order for PICC line Patient Status: Stable Diet: Clear liquid Pending Orders: ST eval, PICC line Pending Results/Labs: AM labs Pending MD notification: N/A Latest Vital Signs: Temperature 97.8 , Pulse 100 , B/P 124 /82 , Respiratory Rate 20 , O2 SAT 100 , Room Air, O2 Flow Rate . Vital Sign Comment: [] Latest Omalley Fall Score: 50 Fall Risk: High Risk Safety Measures: Call light Within Reach, Bed Alarm Zone 2, Side Rails Side Rails x3, Bed position Low and Locked. Fall Precautions: Yellow Socks Door Sign Patient Fall Education Report given to MARIANA Sharma
--- NOTE | 2020-08-30 07:55 | NUR ---
NURSE NOTES: Received hand-off report from Radha Hubbard RN. Patient in stable condition, some confusion noted, but responsive to verbal and tactile stimulation, able to express needs well, name, , and situation. Breathing even and unlabored, v/s within normal limits. Call light within reach, bed alarm on, bed in lowest and locked position, side rails upx3.
[2020-08-30 08:00] VITALS: BP 130/82
[2020-08-30 09:15] LABS: HEMOGLOBIN 10.3 G/DL (14.2-18.0); MEAN CORPUSCULAR VOLUME 86 FL (80-99); PLATELET COUNT 91 K/UL (150-450); RED BLOOD COUNT 3.85 M/UL (4.70-6.10); RED CELL DISTRIBUTION WIDTH 24.1 % (11.6-14.8); WHITE BLOOD COUNT 5.1 K/UL (4.8-10.8)
[2020-08-30] MEDS: Pantoprazole Inj IVP SCH ×2 (09:17→22:05)
[2020-08-30] MEDS: Lactulose 20gm/30ml UDC ORAL SCH ×2 (09:17→18:00)
[2020-08-30 10:00] LABS: ALANINE AMINOTRANSFERASE 53 U/L (12-78); ALBUMIN 2.4 G/DL (3.4-5.0); ALBUMIN/GLOBULIN RATIO 0.7 (1.0-2.7); ALKALINE PHOSPHATASE 1064 U/L (46-116); ANION GAP 14 mmol/L (5-15); ASPARTATE AMINO TRANSFERASE 157 U/L (15-37); BILIRUBIN,TOTAL 3.8 MG/DL (0.2-1.0); BLOOD UREA NITROGEN 21 mg/dL (7-18); CALCIUM 9.1 MG/DL (8.5-10.1); CARBON DIOXIDE 21 MMOL/L (21-32); CHLORIDE 106 MMOL/L (98-107); CREATININE 1.4 MG/DL (0.55-1.30); GAMMA GLUTAMYL TRANSPEPTIDASE 1457 U/L (5-85); PHOSPHORUS 3.1 MG/DL (2.5-4.9); POTASSIUM 3.8 MMOL/L (3.5-5.1); SODIUM 141 MMOL/L (136-145)
--- NOTE | 2020-08-30 10:00 | NUR ---
NURSE NOTES: Natividad is alert and oriented x3, still fatigued will notify Dr. Ortiz, awaiting for his response.
[2020-08-30 10:02] LABS: BILIRUBIN,DIRECT 3.1 MG/DL (0.0-0.3)
--- NOTE | 2020-08-30 11:00 | NUR ---
NURSE NOTES: Radiology was notified regarding PICC placement and tech stated that radiologist is not here yet to perform this procedure. Patient has been without an access all throughout the night and still has no access despite numerous attempts to insert an IV.
--- NOTE | 2020-08-30 11:39 | Infectious Diseases Prog Note ---
Assessment/Plan Assessment/Plan antibiotics : ceftriaxone A 1. UTI 2. prostate cancer 3. liver metastasis with elevated LFT P 1. continue ceftriaxone 2. will follow up cultures Subjective Constitutional: Denies: fever, chills Respiratory: Denies: shortness of breath, dry cough Gastrointestinal/Abdominal: Denies: nausea, vomiting, diarrhea Musculoskeletal: Denies: pain Allergies: Coded Allergies: No Known Allergies (Unverified , 01/05/17) Objective Last 24 Hour Vital Signs Date Time Temp Pulse Resp B/P (MAP) Pulse Ox O2 Delivery O2 Flow Rate FiO2 08/30/20 08:00 97.1 92 18 130/82 (98) 98 08/30/20 04:00 97.8 100 20 124/82 (96) 100 08/30/20 00:00 98.6 76 20 121/78 (92) 98 08/29/20 20:52 Room Air 08/29/20 20:00 98.2 96 20 117/80 (92) 99 08/29/20 16:00 97.6 67 20 123/82 (96) 99 08/29/20 12:00 96.8 86 16 109/67 (81) 99 Height (Feet): 6 Height (Inches): 0.00 Weight (Pounds): 205 Respiratory/Chest: lungs clear Cardiovascular: normal rate, regular rhythm, no gallop/murmur Abdomen: soft, non tender Extremities: no edema Microbiology Date/Time Source Procedure Growth Status 08/27/20 16:40 Urine,Clean Catch Urine Culture - Final NO GROWTH AFTER 48 HOURS Complete 08/27/20 14:32 Blood Blood Culture - Preliminary NO GROWTH AFTER 48 HOURS Resulted Laboratory Tests Test 08/30/20 08:20 White Blood Count 5.1 K/UL (4.8-10.8) Red Blood Count 3.85 M/UL (4.70-6.10) L Hemoglobin 10.3 G/DL (14.2-18.0) L Hematocrit 33.0 % (42.0-52.0) L Mean Corpuscular Volume 86 FL (80-99) Mean Corpuscular Hemoglobin 26.7 PG (27.0-31.0) L Mean Corpuscular Hemoglobin Concent 31.1 G/DL (32.0-36.0) L Red Cell Distribution Width 24.1 % (11.6-14.8) H Platelet Count 91 K/UL (150-450) L Mean Platelet Volume 8.0 FL (6.5-10.1) Neutrophils (%) (Auto) % (45.0-75.0) Lymphocytes (%) (Auto) % (20.0-45.0) Monocytes (%) (Auto) % (1.0-10.0) Eosinophils (%) (Auto) % (0.0-3.0) Basophils (%) (Auto) % (0.0-2.0) Differential Total Cells Counted 100 Neutrophils % (Manual) 85 % (45-75) H Lymphocytes % (Manual) 9 % (20-45) L Monocytes % (Manual) 4 % (1-10) Eosinophils % (Manual) 1 % (0-3) Basophils % (Manual) 0 % (0-2) Band Neutrophils 1 % (0-8) Platelet Estimate Decreased L Platelet Morphology Normal Polychromasia 1+ Hypochromasia 1+ Anisocytosis 3+ Target Cells Occasional Sodium Level 141 MMOL/L (136-145) Potassium Level 3.8 MMOL/L (3.5-5.1) Chloride Level 106 MMOL/L (98-107) Carbon Dioxide Level 21 MMOL/L (21-32) Anion Gap 14 mmol/L (5-15) Blood Urea Nitrogen 21 mg/dL (7-18) H Creatinine 1.4 MG/DL (0.55-1.30) H Estimat Glomerular Filtration Rate > 60 mL/min (>60) Glucose Level 94 MG/DL (74-106) Uric Acid 13.0 MG/DL (2.6-7.2) H Calcium Level 9.1 MG/DL (8.5-10.1) Phosphorus Level 3.1 MG/DL (2.5-4.9) Magnesium Level 2.1 MG/DL (1.8-2.4) Total Bilirubin 3.8 MG/DL (0.2-1.0) H Direct Bilirubin 3.1 MG/DL (0.0-0.3) H Gamma Glutamyl Transpeptidase 1457 U/L (5-85) H Aspartate Amino Transf (AST/SGOT) 157 U/L (15-37) H Alanine Aminotransferase (ALT/SGPT) 53 U/L (12-78) Alkaline Phosphatase 1064 U/L (46-116) H Total Protein 6.0 G/DL (6.4-8.2) L Albumin 2.4 G/DL (3.4-5.0) L Globulin 3.6 g/dL Albumin/Globulin Ratio 0.7 (1.0-2.7) L Current Medications Medications (Trade) Dose Ordered Sig/David Route PRN Reason Start Time Stop Time Status Last Admin Dose Admin Allopurinol (allopurinoL) 300 mg Q12HR ORAL 08/29/20 21:00 09/28/20 20:59 08/30/20 09:17 Barium Sulfate (Readi-Cat 2) 450 ml NOW PRN ORAL Radiology Procedure 08/28/20 23:45 08/30/20 23:44 Barium Sulfate (Varibar Honey) 250 ml NOW PRN MC RAD 08/27/20 18:15 08/30/20 18:08 Barium Sulfate (Varibar [place]) 240 ml NOW PRN MC RAD 08/27/20 18:15 08/30/20 18:08 Barium Sulfate (Varibar Pudding) 230 ml NOW PRN MC RAD 08/27/20 18:15 08/30/20 18:08 Barium Sulfate (Varibar Thin Liquid powder) 148 gm NOW PRN MC RAD 08/27/20 18:15 08/30/20 18:08 Ceftriaxone Sodium 1 gm/ Dextrose 55 ml @ 110 mls/hr Q24H IVPB 08/28/20 16:00 09/04/20 15:59 08/29/20 16:11 Chlorhexidine Gluconate ([place]-Hex 2%) 1 applic DAILY@2000 TOPIC 08/30/20 20:00 11/28/20 19:59 Dextrose/Sodium Chloride 1,000 ml @ 100 mls/hr Q10H IV 08/27/20 18:36 09/26/20 18:35 08/29/20 16:21 Folic Acid (Folate) 5 mg DAILY ORAL 08/29/20 14:30 09/28/20 14:29 08/30/20 09:17 Lactulose (Cephulac) 20 gm BID ORAL 08/29/20 14:30 09/28/20 14:29 08/30/20 09:17 Ondansetron HCl (Zofran) 4 mg Q4H PRN IVP Nausea & Vomiting 08/29/20 09:15 3/16/21 09:14 08/29/20 12:51 Pantoprazole (Protonix) 40 mg EVERY 12 HOURS IVP 08/28/20 21:00 09/27/20 20:59 08/30/20 09:17 Trinh Villanueva MD Aug 30, 2020 11:39
--- NOTE | 2020-08-30 11:41 | NUR ---
NURSE NOTES: Left voicemail with nurse receptionist for Dr. Ortiz due to patient mental status. Patient is alert and oriented x3, very weak now but still able to follow commands. Awaiting Dr. Ortiz callback.
--- NOTE | 2020-08-30 11:47 | NUR ---
CASE MANAGEMENT:REVIEW 59 YR OLD MALE PRESENTED TO ER CC: GENERALIZED WEAKNESS SI: ENCEPHALOPATHY. PROSTATE CA. ANEMIA BONE METASTASIS. ASCITES. LIVER FAILURE 98.1 92 17 132/84 98% ON RA H/H-8.2/26.7-->7.5/24.4 TBILI+3.4 DBILI+3.0 BNP+1085 PSA+1522.57 PT+16.0 INR+1.5 IS: 1L NS BOLUS IV ROCEPHIN VIT K HEPARIN SQ XRAY ABD CHEST XRAY BLOOD CX TRANSFUSE 1 UNIT PRBC'S : TO MED/SURG UNIT DCP; RETURN TO PRIOR LIVING ARRANGEMENTS
--- NOTE | 2020-08-30 11:53 | Consultation ---
Consult Note Consult Note Neurology Consultation Date of Consultation: 08/30/2020 Chirag MD: Dr. Ortiz Reason For Referral: Altered Mental Status HPI: This is a 59 year old male patient admitted for weakness. He has a history of prostate cancer and is undergoing treatment at [facility]. He has been having dry heaves and decreased appetite. He is moved his bowels last in the last 2 to 3 days but says for the last week he has not been moving his bowels. He has been taking ibuprofen and [place]. Daughters states that yesterday he did not recognize her initially but then did. We were consulted for altered mental status. Patient History: prostate Ca Past Medical History: see triage record Social History: Reports: possible alcohol us, Denies: smoking, drug use - lives by self Review of Systems unable to assess Physical Exam General: pt is awake, lethargic, follows simple commands Nuero Exam: Comprehension intact, PERRLA Cranial Nerves II-XI tested, No nystagmus, no facial droop. Coordination: not able to test, Hearing intact No involuntary movements Bilat upper and lower extremities 2/5 strength Sensation intact. Gait not tested Labs; reviewed Imaging: noted Assessment and Recs 1. AMS --> rule out infection, check UA, and lytes, and MRI Brain with adn without contrast. D/w RN and lithographers printer --> will call daughter for baseline neuro status as well. 2. Lethargy --> Check MRI brain hold off any sedatives. 3. Encephalopathy likely due to liver dysfunction --> lactulose/rifaximin per gi 4. Failure to Thrive --> due to cancer 5. Metastatic prostate cancer - psa 1522 --> has been getting infusion at [facility] 6 Anemia of chronic disease 7. Liver failure Thank you for allowing us to participate in patient's care, patient was seen with Dr. Tra Solorzano and plan of care was discussed he agrees. Lea Navarro NP Aug 30, 2020 11:53
[2020-08-30 12:00] VITALS: BP 128/74
[2020-08-30] MEDS ORDERED: Gadavist 7.5mMol/7.5ml vial IV PRN (12:00)
--- NOTE | 2020-08-30 12:15 | Nephrology Progress Note ---
Assessment/Plan Problem List: (1) Renal insufficiency (2) Liver failure (3) Prostate cancer (4) Bony metastasis (5) Anemia (6) Encephalopathy Assessment 59-year-old male presents with severe weakness. History of prostate cancer. Renal failure, serum creatinine 1.5 Severe anemia Elevated LFTs and bilirubin Plan August 30: Labs reviewed. Marinol ordered for low appetite. Continue same. August 29: Allopurinol 300 mg twice a day ordered. Folic acid ordered. Continue per consultants. Anemia work-up Kidney and abdominal ultrasound Monitor renal parameters Urine studies PSA level Avoid nephrotoxic's IV fluid Continue per consultants Subjective ROS Limited/Unobtainable: No Constitutional: Reports: malaise, weakness Objective Objective Last 24 Hour Vital Signs Date Time Temp Pulse Resp B/P (MAP) Pulse Ox O2 Delivery O2 Flow Rate FiO2 08/30/20 08:00 97.1 92 18 130/82 (98) 98 08/30/20 04:00 97.8 100 20 124/82 (96) 100 08/30/20 00:00 98.6 76 20 121/78 (92) 98 08/29/20 20:52 Room Air 08/29/20 20:00 98.2 96 20 117/80 (92) 99 08/29/20 16:00 97.6 67 20 123/82 (96) 99 Intake and Output 08/29/20 08/30/20 19:00 07:00 Intake Total 910 ml 100 ml Output Total 300 ml Balance 610 ml 100 ml IV Total 910 ml 100 ml Output Urine Total 300 ml Current Medications Medications (Trade) Dose Ordered Sig/David Route PRN Reason Start Time Stop Time Status Last Admin Dose Admin Allopurinol (allopurinoL) 300 mg Q12HR ORAL 08/29/20 21:00 09/28/20 20:59 08/30/20 09:17 Barium Sulfate (Readi-Cat 2) 450 ml NOW PRN ORAL Radiology Procedure 08/28/20 23:45 08/30/20 23:44 Barium Sulfate (Varibar Honey) 250 ml NOW PRN MC RAD 08/27/20 18:15 08/30/20 18:08 Barium Sulfate (Varibar [place]) 240 ml NOW PRN MC RAD 08/27/20 18:15 08/30/20 18:08 Barium Sulfate (Varibar Pudding) 230 ml NOW PRN MC RAD 08/27/20 18:15 08/30/20 18:08 Barium Sulfate (Varibar Thin Liquid powder) 148 gm NOW PRN MC RAD 08/27/20 18:15 08/30/20 18:08 Ceftriaxone Sodium 1 gm/ Dextrose 55 ml @ 110 mls/hr Q24H IVPB 08/28/20 16:00 09/04/20 15:59 08/29/20 16:11 Chlorhexidine Gluconate ([place]ydney-Hex 2%) 1 applic DAILY@2000 TOPIC 08/30/20 20:00 11/28/20 19:59 Dextrose/Sodium Chloride 1,000 ml @ 100 mls/hr Q10H IV 08/27/20 18:36 09/26/20 18:35 08/29/20 16:21 Dronabinol (Marinol) 2.5 mg TID ORAL 08/30/20 13:00 11/28/20 12:59 UNV Folic Acid (Folate) 5 mg DAILY ORAL 08/29/20 14:30 09/28/20 14:29 08/30/20 09:17 Gadobutrol (Gadavist) 7.5 mmol NOW PRN IV Radiology Procedure 08/30/20 12:00 09/03/20 11:59 Lactulose (Cephulac) 20 gm BID ORAL 08/29/20 14:30 09/28/20 14:29 08/30/20 09:17 Ondansetron HCl (Zofran) 4 mg Q4H PRN IVP Nausea & Vomiting 08/29/20 09:15 09/28/20 09:14 08/29/20 12:51 Pantoprazole (Protonix) 40 mg EVERY 12 HOURS IVP 08/28/20 21:00 09/27/20 20:59 08/30/20 09:17 Laboratory Tests 08/30/20 08:20: White Blood Count 5.1, Red Blood Count 3.85L, Hemoglobin 10.3L, Hematocrit 33.0L , Mean Corpuscular Volume 86, Mean Corpuscular Hemoglobin 26.7L, Mean Corpuscul ar Hemoglobin Concent 31.1L, Red Cell Distribution Width 24.1H, Platelet Count 91L, Mean Platelet Volume 8.0, Neutrophils (%) (Auto) , Lymphocytes (%) (Auto) , Monocytes (%) (Auto) , Eosinophils (%) (Auto) , Basophils (%) (Auto) , Differential Total Cells Counted 100, Neutrophils % (Manual) 85H, Lymphocytes % (Manual) 9L, Monocytes % (Manual) 4, Eosinophils % (Manual) 1, Basophils % (Manual) 0, Band Neutrophils 1, Platelet Estimate DecreasedL, Platelet Morphology Normal, Polychromasia 1+, Hypochromasia 1+, Anisocytosis 3+, Target Cells Occasional, Sodium Level 141, Potassium Level 3.8, Chloride Level 106, Carbon Dioxide Level 21, Anion Gap 14, Blood Urea Nitrogen 21H, Creatinine 1.4H, Estimat Glomerular Filtration Rate > 60, Glucose Level 94, Uric Acid 13.0H, Calcium Level 9.1, Phosphorus Level 3.1, Magnesium Level 2.1, Total Bilirubin 3.8H, Direct Bilirubin 3.1H, Gamma Glutamyl Transpeptidase 1457H, Aspartate Amino Transf (AST/SGOT) 157H, Alanine Aminotransferase (ALT/SGPT) 53, Alkaline Phosphatase 1064H, Total Protein 6.0L, Albumin 2.4L, Globulin 3.6, Al bumin/Globulin Ratio 0.7L Height (Feet): 6 Height (Inches): 0.00 Weight (Pounds): 205 General Appearance: no apparent distress Cardiovascular: tachycardia Respiratory/Chest: decreased breath sounds Abdomen: soft Dean Brink MD Aug 30, 2020 12:15
--- NOTE | 2020-08-30 12:30 | NUR ---
NURSE NOTES: Consent was obtained from daughter Ofelia Caceres charge nurse verfiied telephone consent to MRI of the brain with contrast. Placed signed consent form in the chart.
[2020-08-30] MEDS ORDERED: Heparin1,000 units/500ml Premix(Conc:2 units/ml) IV PRN (12:45)
[2020-08-30] MEDS ORDERED: Lidocaine 1% Plain 30 ml INJ PRN (12:45)
--- NOTE | 2020-08-30 12:56 | NUR ---
NURSE NOTES: Dr. Hu called back and confirmed to me that his baseline is in and out of lethargy and to keep monitoring closely his LOC. Patient is still arousable, expresses needs well, and responds to verbal and tactile stimuli. Additionally, patient still follows commands and can answer questions and directions. Dr. Ortiz gave an order to send patient to tele if patient worsening in condition occurs.
[2020-08-30] MEDS: Dronabinol 2.5mg Cap ORAL SCH ×3 (13:00→18:00)
--- NOTE | 2020-08-30 13:00 | NUR ---
CHARGE NURSE NOTE: MRI brain stat ordered. Pt is scheduled for PICC line placement. Pt does not have IV line (night warehouse manager was not able to obtain one- pt is a hard stick). CN was trying to insert IV twice - no success. Rad. dep notified, they are waiting for radiologist to come.
--- NOTE | 2020-08-30 13:05 | General Progress Note ---
Subjective ROS Limited/Unobtainable: Yes Allergies: Coded Allergies: No Known Allergies (Unverified , 01/05/17) Objective Last 24 Hour Vital Signs Date Time Temp Pulse Resp B/P (MAP) Pulse Ox O2 Delivery O2 Flow Rate FiO2 08/30/20 08:00 97.1 92 18 130/82 (98) 98 08/30/20 04:00 97.8 100 20 124/82 (96) 100 08/30/20 00:00 98.6 76 20 121/78 (92) 98 08/29/20 20:52 Room Air 08/29/20 20:00 98.2 96 20 117/80 (92) 99 08/29/20 16:00 97.6 67 20 123/82 (96) 99 Intake and Output 08/29/20 08/30/20 19:00 07:00 Intake Total 910 ml 100 ml Output Total 300 ml Balance 610 ml 100 ml IV Total 910 ml 100 ml Output Urine Total 300 ml Laboratory Tests 08/30/20 08:20: White Blood Count 5.1, Red Blood Count 3.85L, Hemoglobin 10.3L, Hematocrit 33.0L , Mean Corpuscular Volume 86, Mean Corpuscular Hemoglobin 26.7L, Mean Corpuscular Hemoglobin Concent 31.1L, Red Cell Distribution Width 24.1H, Platelet Count 91L, Mean Platelet Volume 8.0, Neutrophils (%) (Auto) , Lymphocytes (%) (Auto) , Monocytes (%) (Auto) , Eosinophils (%) (Auto) , Basophils (%) (Auto) , Differential Total Cells Counted 100, Neutrophils % (Manual) 85H, Lymphocytes % (Manual) 9L, Monocytes % (Manual) 4, Eosinophils % (Manual) 1, Basophils % (Manual) 0, Band Neutrophils 1, Platelet Estimate DecreasedL, Platelet Morphology Normal, Polychromasia 1+, Hypochromasia 1+, Anisocytosis 3+, Target Cells Occasional, Sodium Level 141, Potassium Level 3.8, Chloride Level 106, Carbon Dioxide Level 21, Anion Gap 14, Blood Urea Nitrogen 21H, Creatinine 1.4H, Estimat Glomerular Filtration Rate > 60, Glucose Level 94, Uric Acid 13.0H, Calcium Level 9.1, Phosphorus Level 3.1, Magnesium Level 2.1, Total Bilirubin 3.8H, Direct Bilirubin 3.1H, Gamma Glutamyl Transpeptidase 1457H , Aspartate Amino Transf (AST/SGOT) 157H, Alanine Aminotransferase (ALT/SGPT) 53, Alkaline Phosphatase 1064H, Total Protein 6.0L, Albumin 2.4L, Globulin 3.6, Albumin/Globulin Ratio 0.7L Height (Feet): 6 Height (Inches): 0.00 Weight (Pounds): 205 Assessment/Plan Problem List: (1) Encephalopathy ICD Codes: G93.40 - Encephalopathy, unspecified SNOMED: 04023184 (2) Liver failure ICD Codes: K72.90 - Hepatic failure, unspecified without coma SNOMED: 86877355 Qualifiers: Qualified Codes: K72.90 - Hepatic failure, unspecified without coma (3) Prostate cancer ICD Codes: C61 - Malignant neoplasm of prostate SNOMED: 964834009 (4) Bony metastasis ICD Codes: C79.51 - Secondary malignant neoplasm of bone SNOMED: 28882692 (5) Anemia ICD Codes: D64.9 - Anemia, unspecified SNOMED: 484235068 Qualifiers: Qualified Codes: D64.9 - Anemia, unspecified Status: progressing Assessment/Plan: waxing and waning mentation.dr vazquez ordered mri of brain encephalopathy confused elevated lft.awaiting response from gi re etiology anemia Gabrielle Bermudez MD Aug 30, 2020 13:05
--- NOTE | 2020-08-30 13:07 | NUR ---
CHARGE NURSE NOTE: was called, message left, regarding MRI.
--- NOTE | 2020-08-30 13:44 | NUR ---
NURSE NOTES: According charge nurse, patient left for PICC line placement.
--- NOTE | 2020-08-30 14:27 | NUR ---
CHARGE NURSE NOTE: Patient came back from PICC placement, he was very uncooperative. It took them 1 hr to do procedure. According to Par[facility] fish technologist. he will not stay steal, pt needs sedation. was called, message left.
--- NOTE | 2020-08-30 14:34 | NUR ---
RADIOLOGY NOTE: LEFT UPPER EXTREMITY PICC LINE PLACEMENT BY DR. ROMMEL VELÁSQUEZ AT 1345 HRS. FA
--- NOTE | 2020-08-30 14:49 | Brief Operative Note ---
Immediate Post Operative Note Operative Note Pre-op Diagnosis: needs IV access Procedure: PICC Post-op Diagnosis: same as pre-op Surgeon: Mirta Nielsen Anesthesia: local Specimen: none Complications: none Fluids: none Implant(s) used?: No Augustine Nielsen MD Aug 30, 2020 14:49
[2020-08-30 15:00] VITALS: BP 124/78
[2020-08-30] MEDS: cefTRIAXone 1 GM in D5W 55 ML IVPB SCH (15:00)
--- NOTE | 2020-08-30 15:20 | NUR ---
NURSE NOTES: Respiratory therapist called to ensure that patient oxygenation sufficient; was put on nasal cannula 3L, spo2 now 97%.
[2020-08-30] MEDS ORDERED: LORazepam Inj 2mg/ml 1ml IV PRN (15:30)
--- NOTE | 2020-08-30 15:44 | General Progress Note ---
Subjective ROS Limited/Unobtainable: No Allergies: Coded Allergies: No Known Allergies (Unverified , 01/05/17) Objective Last 24 Hour Vital Signs Date Time Temp Pulse Resp B/P (MAP) Pulse Ox O2 Delivery O2 Flow Rate FiO2 08/30/20 15:00 97.5 84 18 124/78 (93) 97 08/30/20 12:00 97.6 83 17 128/74 (92) 98 08/30/20 09:00 Room Air 08/30/20 08:00 97.1 92 18 130/82 (98) 98 08/30/20 04:00 97.8 100 20 124/82 (96) 100 08/30/20 00:00 98.6 76 20 121/78 (92) 98 08/29/20 20:52 Room Air 08/29/20 20:00 98.2 96 20 117/80 (92) 99 08/29/20 16:00 97.6 67 20 123/82 (96) 99 Intake and Output 08/29/20 08/30/20 19:00 07:00 Intake Total 910 ml 100 ml Output Total 300 ml Balance 610 ml 100 ml IV Total 910 ml 100 ml Output Urine Total 300 ml Laboratory Tests 08/30/20 08:20: White Blood Count 5.1, Red Blood Count 3.85L, Hemoglobin 10.3L, Hematocrit 33.0L , Mean Corpuscular Volume 86, Mean Corpuscular Hemoglobin 26.7L, Mean Corpuscular Hemoglobin Concent 31.1L, Red Cell Distribution Width 24.1H, Platelet Count 91L, Mean Platelet Volume 8.0, Neutrophils (%) (Auto) , Lymphocytes (%) (Auto) , Monocytes (%) (Auto) , Eosinophils (%) (Auto) , Basophils (%) (Auto) , Differential Total Cells Counted 100, Neutrophils % (Manual) 85H, Lymphocytes % (Manual) 9L, Monocytes % (Manual) 4, Eosinophils % (Manual) 1, Basophils % (Manual) 0, Band Neutrophils 1, Platelet Estimate Decrea sedL, Platelet Morphology Normal, Polychromasia 1+, Hypochromasia 1+, Anisocytosis 3+, Target Cells Occasional, Sodium Level 141, Potassium Level 3.8, Chloride Level 106, Carbon Dioxide Level 21, Anion Gap 14, Blood Urea Nitrogen 21H, Creatinine 1.4H, Estimat Glomerular Filtration Rate > 60, Glucose Level 94, Uric Acid 13.0H, Calcium Level 9.1, Phosphorus Level 3.1, Magnesium Level 2.1, Total Bilirubin 3.8H, Direct Bilirubin 3.1H, Gamma Glutamyl Transpeptidase 1457H , Aspartate Amino Transf (AST/SGOT) 157H, Alanine Aminotransferase (ALT/SGPT) 53, Alkaline Phosphatase 1064H, Total Protein 6.0L, Albumin 2.4L, Globulin 3.6, Albumin/Globulin Ratio 0.7L Height (Feet): 6 Height (Inches): 0.00 Weight (Pounds): 205 General Appearance: lethargic EENT: normal ENT inspection Neck: supple Cardiovascular: normal rate, gallop/S3 Abdomen: hypoactive bowel sounds Extremities: non-tender Assessment/Plan Status: progressing Assessment/Plan: Assessment/Plan Assessment/Plan: Assessment - metastatic prostate CA - hepatomegally - nausea - edema - poor prognosis Recommendations - supportive care - oncology opinion - SCD - PO as tolerated. Osito Zelaya MD Aug 30, 2020 15:44
--- NOTE | 2020-08-30 16:00 | NUR ---
INTER-FACILITY TRANSFER: Patient transferred to Telemetry 220-1, per Dr. Ortiz. Report given to Yessica Dover RN. Patient transferred with valuables and medications. Belongings verified upon transfer and given to Yessica Dover RN. Family/S.O. notified of transfer (daughter).
--- NOTE | 2020-08-30 16:02 | NUR ---
NURSE NOTES: Patient alert and oriented x1-2, responsive to pain and verbal stimuli, Dr. Ortiz made aware of patient condition, breathing even and unlabored on nasal cannula 3L, vital signs WNL. PICC line in place, intact, patent and flushing.
--- NOTE | 2020-08-30 16:02 | NUR ---
NURSE NOTES: pt is lethargic but as he was assessed he became more alert and started talking. He is awake and alert x3 he does not know why he is in the hospital for. pt has money in his [employer] money order. pls see belonging sheet. Pt refused to have money inside of safe. pt on panel monitor no sings of cardiac or respiratory distress. Call light within reach, bed in lowest position. vital signs stable.
--- NOTE | 2020-08-30 16:42 | Consultation ---
Consult Note Consult Note DATE OF CONSULTATION: 08/30/2020 CONSULTING PHYSICIAN: Keshawn Waller MD. ATTENDING PHYSICIAN: Dr. Ortiz REASON FOR CONSULTATION: Acute hypoxia HISTORY OF PRESENT ILLNESS: This is a 59-year-old male with past medical history of prostate cancer who was brought in by EMS for evaluation of weakness. Patient was supposed to get a biopsy on the day of presentation but could not get the patient to the facility because of weakness. Patient had a negative COVID-19 test recently with an unspecified date. Daughter stated that he had been getting infusions at [facility]. The initial chest x-ray showed markedly abnormal diffusely sclerotic bones, and apparent right lung masses. The abdominal x-ray is notable for hepatomegaly. Abdominal ultrasound showed heterogeneous liver with suggestion of masses throughout and enlarged spleen. Abdominal CT showed diffuse osseous metastatic concerning for disseminated prostate cancer, innumerable hepatic metastatic masses with severe hepatic enlargement. We have been consulted for acute hypoxia today on room air in the 80s. Patient has been transferred to telemetry and was given supplemental oxygen. Patient is now saturating well on 3 L nasal cannula. PAST MEDICAL HISTORY: Prostate cancer, bony metastasis, anemia, liver failure, encephalopathy MEDICATIONS: Acetaminophen, cyclobenzaprine, gabapentin, ibuprofen, ondansetron, tramadol ALLERGIES: No known allergies FAMILY HISTORY: Unknown PERSONAL/SOCIAL HISTORY: Patient is from home REVIEW OF SYSTEMS: Negative except mentioned in HPI PHYSICAL EXAMINATION: VITAL SIGNS: Blood pressure 124/78, heart rate 84, respiratory rate 18, weight 93 kg, height 183 cm. General: Patient laying in bed, NAD, very lethargic, normal work of breathing HEENT: Head exam reveals that the head is normocephalic, atraumatic without deformity or unusual swelling. Eyes closed CHEST AND LUNGS: Reveals clear, normal, symmetrical breath sounds with no adventitious sounds. CARDIOVASCULAR: Reveals normal S1, S2 without murmurs, rubs, or clicks. ABDOMEN: Soft with no tenderness or organomegaly. RECTAL: Deferred. MUSCULOSKELETAL: There is no tenderness to palpation. Range of motion is normal. NEUROLOGICAL: Responsive to pain stimulus, A&O x1 LABORATORY DATA: Laboratory testing shows hemoglobin 10.3, hematocrit 33.0. Chemistries show BUN 21, creatinine 1.4, uric acid 13.0, AST 157, ALT 53, alk phos 1064 Assessment/Plan 1. Metastatic prostate cancer - per heme onc 2. Encephalopathy, likely due to liver dysfunction -On lactulose, rifaximin per GI 3. DVT prophylaxis -On SCDs for DVT prophylaxis -Venous duplex ultrasound of legs negative for DVT (08/29) 4. Acute hypoxia -Now saturating well on 3 L NC -Provide supplemental oxygen and wean as tolerated 5. Small left and trace right pleural effusions -Monitor effusions, will consider if effusion increases in size The care for this patient was discussed with my supervising physician. Time spent for this case was approximately 31 minutes. Siva Moreno Aug 30, 2020 16:42
--- NOTE | 2020-08-30 17:40 | NUR ---
Speech Pathology Note (Bedside Dysphagia Evaluation) Brief Note: is a 59 year old male presents with Prostate CA metastatic to bone, s.p liver lesion biopsy admitted OM on 08/27/2020. His oncology care is at [facility]. Pt is currently on clear liquid diet with nectar thickness. He reportedly is able to keep PO down. Overall prognosis is reportedly poor based on MD notes reviews. At his bedside, his voice is wet. He appeared to be not eating much. When I offered, he took sips of water and said, " that's it, I will eat later. He has edema. He will be at risk of aspiration. Interpretation: 1. Aspiration risk 2. Poor nutrition Plan/Recommendation 1. Continue with liquid diet with nectar thick with aspiration precaution 2. may need TPN during this hospital course for nutrition -Goal of care discussion
--- NOTE | 2020-08-30 18:33 | NUR ---
NURSE NOTES: pt is refusing medication, saying he does not like it it taste bad, he just wants to have ice water. pt is not complaining of pain when he is assessed.
[2020-08-30 20:00] VITALS: BP 138/91
[2020-08-30] MEDS: Dyna-Hex 2% Top Sol 2oz TOPIC SCH (20:00)
--- NOTE | 2020-08-30 20:22 | NUR ---
NURSE HAND-OFF REPORT: Important Events on Shift:[]pt is A0x3 and is verbal. reports no pain. Pt is refusing medication. Patient Status: []full code Diet: []clear liquids Pending Orders: [] Pending Results/Labs:[] Pending MD notification:[] Latest Vital Signs: Temperature 97.5 , Pulse 84 , B/P 124 /78 , Respiratory Rate 18 , O2 SAT 97 , Room Air, O2 Flow Rate . Vital Sign Comment: [] EKG Rhythm: Sinus Rhythm Rhythm change?: N MD Notified?: - MD Response: Latest Omalley Fall Score: 25 Fall Risk: Medium Risk Safety Measures: Call light Within Reach, Bed Alarm Zone 2, Side Rails Side Rails x3, Bed position Low and Locked. Fall Precautions: y Yellow Socks y Yellow Gown y Door Sign y Patient Fall Education y Report given to [].Valdo/RN
--- NOTE | 2020-08-30 20:23 | NUR ---
NURSE NOTES: The patient is lethargic and is alert and oriented x2, some level of confusion and agitations was also noted but a calm environment was provided as indicated. The patient is generally weak and was helped with turning and re-positioning as indicated.The patient has a Monzon 16F under gravity draining pale yellowish urine. picc line was noted in the left upper arm that is patent and asymptomatic. The bed in lowest position and call light within reach. will continue to monitor.
--- NOTE | 2020-08-30 21:56 | Diagnostic Imaging Report ---
Indications: Needs long-term IV access Technique: Ultrasound confirms patent compressible left basilic vein. Total sterile technique, including sterile probe cover and sterile gel, hat, mask, sterile gown, large sterile drape, and preparation with 2% chlorhexidine utilized. Local anesthesia with 1% lidocaine. Under real-time ultrasound guidance, puncture brachial vein using 21-gauge needle, documented and archived, passage 0.018 guidewire under direct fluoroscopy, which was used to determine appropriate catheter length, exchange for 4 English peel-away sheath. 4 English Bard dual-lumen power PICC cut to 41 cm. It was inserted through the peel-away sheath. Peel-away sheath and guidewire removed. Catheter fixed to the skin. Both catheter ports aspirated and flushed. Patient tolerated procedure well, without immediate complication. Digital radiograph documents satisfactory catheter tip position, at the cavoatrial junction. Total fluoroscopy time 31.2 seconds. Total dose area product [id number] [id number] Total number of images: 1 Impression: Successful placement of left arm PICC under sonographic and fluoroscopic guidance, as described above.
[2020-08-31] VITALS: BP 125/79
[2020-08-31 04:00] VITALS: BP 136/85
--- NOTE | 2020-08-31 06:23 | Hematology/Onc Progress Note ---
Assessment/Plan Assessment/Plan Assessment and Recs # Metastatic prostate cancer - psa 1522 --> has been getting infusion at [facility] --> liver biopsy was recently done --> PSA remains markedly elevated --> continue outpatient onco care --> uro eval # Anemia of chronic disease due to underlying chronic medical issues, Multifactorial --> Anemia w/u has been ordered --> No evidence of hemolysis is noted, peripheral smear has been reviewed. --> Hgb goal >7. Transfuse prn. --> Epogen or iron at this time is not particularly indicated --> If unable to determine source, will need bone marrow biopsy --> hgb 8.2 # Encephalopathy likely due to liver dysfucntion --> lactulose/rifaxamin per gi # Liver failure likely due to cancer --> ptt/inr high # Ascites --> para as needed --> pain management # Bony metastasis # Renal insufficiency # Elevated INR Time of note does not necessarily correspond to the time the patient was seen. Appreciate consultation greatly. Subjective HEENT: Denies: no symptoms, eye pain, blurred vision, tearing, double vision, ear pain, ear discharge, nose pain, nose congestion, throat pain, throat swelling, mouth pain, mouth swelling, other Cardiovascular: Denies: no symptoms, chest pain, edema, irregular heart rate, lightheadedness, palpitations, syncope, other Respiratory: Denies: no symptoms, cough, shortness of breath, SOB with excertion, SOB at rest, sputum, wheezing, other Gastrointestinal/Abdominal: Denies: no symptoms, abdomen distended, abdominal pain, black stools, tarry stools, blood in stool, constipated, diarrhea, difficulty swallowing, nausea, poor appetite, poor fluid intake, rectal bleeding, vomiting, other Genitourinary: Denies: no symptoms, burning, discharge, frequency, flank pain, hematuria, incontinence, pain, urgency, other Neurologic/Psychiatric: Denies: no symptoms, anxiety, depressed, emotional prob lems, headache, numbness, paresthesia, pre-existing deficit, seizure, tingling, tremors, weakness, other Endocrine: Denies: no symptoms, excessive sweating, flushing, intolerance to cold, intolerance to heat, increased hunger, increased thirst, increased urine, unexplained weight gain, unexplained weight loss, other Hematologic/Lymphatic: Denies: no symptoms, anemia, easy bleeding, easy bruising, adenopathy, other Allergies: Coded Allergies: No Known Allergies (Unverified , 01/05/17) Subjective 08/30 very agitated, may need picc line, have dw rn 08/31 labs are pending from am, no bleeding, meds noted, no night sweats Objective Objective Current Medications Medications (Trade) Dose Ordered Sig/David Route PRN Reason Start Time Stop Time Status Last Admin Dose Admin Allopurinol (allopurinoL) 300 mg Q12HR ORAL 08/29/20 21:00 09/28/20 20:59 08/30/20 22:05 Ceftriaxone Sodium 1 gm/ Dextrose 55 ml @ 110 mls/hr Q24H IVPB 08/28/20 16:00 09/04/20 15:59 08/30/20 15:00 Chlorhexidine Gluconate (Cydney-Hex 2%) 1 applic DAILY@2000 TOPIC 08/30/20 20:00 11/28/20 19:59 08/30/20 20:00 Dextrose/Sodium Chloride 1,000 ml @ 100 mls/hr Q10H IV 08/27/20 18:36 09/26/20 18:35 08/30/20 23:39 Dronabinol (Marinol) 2.5 mg TID ORAL 08/30/20 13:00 11/28/20 12:59 Folic Acid (Folate) 5 mg DAILY ORAL 08/29/20 14:30 09/28/20 14:29 08/30/20 09:17 Gadobutrol (Gadavist) 7.5 mmol NOW PRN IV Radiology Procedure 08/30/20 12:00 09/03/20 11:59 Heparin Sodium/ Sodium Chloride (Heparin 1000 units/500ml Premix) 1,000 unit ONCE PRN IV PICC LINE 08/30/20 12:45 09/02/20 12:44 Lactulose (Cephulac) 20 gm BID ORAL 08/29/20 14:30 09/28/20 14:29 08/30/20 09:17 Lidocaine HCl (Xylocaine 1% 30ml) 30 ml ONCE PRN INJ PICC LINE 08/30/20 12:45 09/02/20 12:44 Lorazepam (Ativan 2mg/ml 1ml) 0.5 mg ONCE PRN IV before MRI 08/30/20 15:30 09/01/20 23:59 Ondansetron HCl (Zofran) 4 mg Q4H PRN IVP Nausea & Vomiting 08/29/20 09:15 09/28/20 09:14 08/29/20 12:51 Pantoprazole (Protonix) 40 mg EVERY 12 HOURS IVP 08/28/20 21:00 09/27/20 20:59 08/30/20 22:05 Last 24 Hour Vital Signs Date Time Temp Pulse Resp B/P (MAP) Pulse Ox O2 Delivery O2 Flow Rate FiO2 08/31/20 04:00 83 08/31/20 04:00 97.5 97 18 136/85 (102) 97 08/31/20 00:00 97.2 86 17 125/79 (94) 95 08/30/20 21:00 Room Air 08/30/20 20:34 105 08/30/20 20:00 97.4 98 19 138/91 (107) 98 08/30/20 15:00 97.5 84 18 124/78 (93) 97 08/30/20 12:00 97.6 83 17 128/74 (92) 98 08/30/20 09:00 Room Air 08/30/20 09:00 91 08/30/20 08:00 97.1 92 18 130/82 (98) 98 08/30/20 04:00 97.8 100 20 124/82 (96) 100 08/30/20 00:00 98.6 76 20 121/78 (92) 98 08/29/20 20:52 Room Air 08/29/20 20:00 98.2 96 20 117/80 (92) 99 08/29/20 16:00 97.6 67 20 123/82 (96) 99 08/29/20 12:00 96.8 86 16 109/67 (81) 99 08/29/20 09:00 Room Air 08/29/20 08:00 97.4 81 15 109/66 (80) 97 Intake and Output 08/30/20 08/31/20 19:00 07:00 Intake Total 340 ml 800 ml Output Total 300 ml Balance 40 ml 800 ml Intake Oral 240 ml IV Total 100 ml 800 ml Output Urine Total 300 ml Labs Test 08/29/20 07:14 08/30/20 08:20 08/30/20 17:40 White Blood Count 4.8 K/UL (4.8-10.8) 5.1 K/UL (4.8-10.8) Red Blood Count 3.12 M/UL (4.70-6.10) 3.85 M/UL (4.70-6.10) Hemoglobin 8.2 G/DL (14.2-18.0) 10.3 G/DL (14.2-18.0) Hematocrit 26.0 % (42.0-52.0) 33.0 % (42.0-52.0) Mean Corpuscular Volume 83 FL (80-99) 86 FL (80-99) Mean Corpuscular Hemoglobin 26.4 PG (27.0-31.0) 26.7 PG (27.0-31.0) Mean Corpuscular Hemoglobin Concent 31.7 G/DL (32.0-36.0) 31.1 G/DL (32.0-36.0) Red Cell Distribution Width 23.4 % (11.6-14.8) 24.1 % (11.6-14.8) Platelet Count 75 K/UL (150-450) 91 K/UL (150-450) Mean Platelet Volume 7.0 FL (6.5-10.1) 8.0 FL (6.5-10.1) Neutrophils (%) (Auto) % (45.0-75.0) % (45.0-75.0) Lymphocytes (%) (Auto) % (20.0-45.0) % (20.0-45.0) Monocytes (%) (Auto) % (1.0-10.0) % (1.0-10.0) Eosinophils (%) (Auto) % (0.0-3.0) % (0.0-3.0) Basophils (%) (Auto) % (0.0-2.0) % (0.0-2.0) Differential Total Cells Counted 100 100 Neutrophils % (Manual) 78 % (45-75) 85 % (45-75) Lymphocytes % (Manual) 15 % (20-45) 9 % (20-45) Monocytes % (Manual) 3 % (1-10) 4 % (1-10) Eosinophils % (Manual) 1 % (0-3) 1 % (0-3) Basophils % (Manual) 0 % (0-2) 0 % (0-2) Band Neutrophils 3 % (0-8) 1 % (0-8) Nucleated Red Blood Cells 2 /100 WBC Platelet Estimate Decreased Decreased Platelet Morphology Normal Normal Polychromasia 1+ 1+ Hypochromasia 2+ 1+ Anisocytosis 3+ 3+ Target Cells Occasional Occasional Sodium Level 136 MMOL/L (136-145) 141 MMOL/L (136-145) Potassium Level 3.5 MMOL/L (3.5-5.1) 3.8 MMOL/L (3.5-5.1) Chloride Level 104 MMOL/L (98-107) 106 MMOL/L (98-107) Carbon Dioxide Level 22 MMOL/L (21-32) 21 MMOL/L (21-32) Anion Gap 10 mmol/L (5-15) 14 mmol/L (5-15) Blood Urea Nitrogen 22 mg/dL (7-18) 21 mg/dL (7-18) Creatinine 1.3 MG/DL (0.55-1.30) 1.4 MG/DL (0.55-1.30) Estimat Glomerular Filtration Rate > 60 mL/min (>60) > 60 mL/min (>60) Glucose Level 134 MG/DL (74-106) 94 MG/DL (74-106) Uric Acid 13.5 MG/DL (2.6-7.2) 13.0 MG/DL (2.6-7.2) Calcium Level 8.5 MG/DL (8.5-10.1) 9.1 MG/DL (8.5-10.1) Phosphorus Level 2.7 MG/DL (2.5-4.9) 3.1 MG/DL (2.5-4.9) Magnesium Level 1.9 MG/DL (1.8-2.4) 2.1 MG/DL (1.8-2.4) Total Bilirubin 2.9 MG/DL (0.2-1.0) 3.8 MG/DL (0.2-1.0) Direct Bilirubin 2.5 MG/DL (0.0-0.3) 3.1 MG/DL (0.0-0.3) Aspartate Amino Transf (AST/SGOT) 127 U/L (15-37) 157 U/L (15-37) Alanine Aminotransferase (ALT/SGPT) 42 U/L (12-78) 53 U/L (12-78) Alkaline Phosphatase 921 U/L (46-116) 1064 U/L (46-116) Ammonia 38 umol/L (11-32) 21 umol/L (11-32) Total Creatine Kinase 280 U/L (26-308) C-Reactive Protein, Quantitative 9.8 mg/dL (0.00-0.90) Pro-B-Type Natriuretic Peptide 823 pg/mL (0-125) Total Protein 5.5 G/DL (6.4-8.2) 6.0 G/DL (6.4-8.2) Albumin 2.0 G/DL (3.4-5.0) 2.4 G/DL (3.4-5.0) Globulin 3.5 g/dL 3.6 g/dL Albumin/Globulin Ratio 0.6 (1.0-2.7) 0.7 (1.0-2.7) Vitamin B12 Level > 2000 PG/ML (193-986) Gamma Glutamyl Transpeptidase 1457 U/L (5-85) Height (Feet): 6 Height (Inches): 0.00 Weight (Pounds): 205 Objective Physical Exam Vitals: reviewed General Appearance: other - Slow speaking, Chronically Ill Head: normocephalic, atraumatic Respiratory: lungs clear, normal breath sounds Cardiovascular: regular rate, rhythm Gastrointestinal: non tender, distended, other - fluid wave Genitourinary: no CVA tenderness Musculoskeletal: back normal Neurologic: alert, DTRs symmetric, motor weakness - generalized, other - slightly lethargic Psychiatric: other - Initially refusing care and suspicious Skin: warm/dry, pallor - Sallow ++Cr Haddad MD Aug 31, 2020 06:23
--- NOTE | 2020-08-31 06:54 | General Progress Note ---
Subjective ROS Limited/Unobtainable: No Allergies: Coded Allergies: No Known Allergies (Unverified , 01/05/17) Objective Last 24 Hour Vital Signs Date Time Temp Pulse Resp B/P (MAP) Pulse Ox O2 Delivery O2 Flow Rate FiO2 08/31/20 04:00 83 08/31/20 04:00 97.5 97 18 136/85 (102) 97 08/31/20 00:00 97.2 86 17 125/79 (94) 95 08/30/20 21:00 Room Air 08/30/20 20:34 105 08/30/20 20:00 97.4 98 19 138/91 (107) 98 08/30/20 15:00 97.5 84 18 124/78 (93) 97 08/30/20 12:00 97.6 83 17 128/74 (92) 98 08/30/20 09:00 Room Air 08/30/20 09:00 91 08/30/20 08:00 97.1 92 18 130/82 (98) 98 Intake and Output 08/30/20 08/31/20 19:00 07:00 Intake Total 340 ml 800 ml Output Total 300 ml Balance 40 ml 800 ml Intake Oral 240 ml IV Total 100 ml 800 ml Output Urine Total 300 ml Laboratory Tests 08/30/20 08:20: White Blood Count 5.1, Red Blood Count 3.85L, Hemoglobin 10.3L, Hematocrit 33.0L , Mean Corpuscular Volume 86, Mean Corpuscular Hemoglobin 26.7L, Mean Corpuscular Hemoglobin Concent 31.1L, Red Cell Distribution Width 24.1H, Pl atelet Count 91L, Mean Platelet Volume 8.0, Neutrophils (%) (Auto) , Lymphocytes (%) (Auto) , Monocytes (%) (Auto) , Eosinophils (%) (Auto) , Basophils (%) (Auto) , Differential Total Cells Counted 100, Neutrophils % (Manual) 85H, Lymphocytes % (Manual) 9L, Monocytes % (Manual) 4, Eosinophils % (Manual) 1, Basophils % (Manual) 0, Band Neutrophils 1, Platelet Estimate DecreasedL, Platelet Morphology Normal, Polychromasia 1+, Hypochromasia 1+, Anisocytosis 3+, Target Cells Occasional, Sodium Level 141, Potassium Level 3.8, Chloride Level 106, Carbon Dioxide Level 21, Anion Gap 14, Blood Urea Nitrogen 21H, Creatinine 1.4H, Estimat Glomerular Filtration Rate > 60, Glucose Level 94, Uric Acid 13.0H , Calcium Level 9.1, Phosphorus Level 3.1, Magnesium Level 2.1, Total Bilirubin 3.8H, Direct Bilirubin 3.1H, Gamma Glutamyl Transpeptidase 1457H, Aspartate Amino Transf (AST/SGOT) 157H, Alanine Aminotransferase (ALT/SGPT) 53, Alkaline Phosphatase 1064H, Total Protein 6.0L, Albumin 2.4L, Globulin 3.6, Albumin/Globulin Ratio 0.7L 08/30/20 17:40: Ammonia 21 Height (Feet): 6 Height (Inches): 0.00 Weight (Pounds): 205 General Appearance: no apparent distress EENT: normal ENT inspection Neck: supple Cardiovascular: normal rate Respiratory/Chest: decreased breath sounds Abdomen: normal bowel sounds, non tender, soft Extremities: non-tender Assessment/Plan Status: progressing Assessment/Plan: Assessment/Plan Assessment/Plan: Assessment - metastatic prostate CA - hepatomegally - nausea - edema - poor prognosis Recommendations - supportive care - oncology opinion - SCD - PO as tolerated. -tara maridavid -tara protonix Osito Zelaya MD Aug 31, 2020 06:54
--- NOTE | 2020-08-31 07:20 | NUR ---
NURSE HAND-OFF REPORT: Important Events on Shift:Awake and lethargic Patient Status: Diet: Pending Orders: Pending Results/Labs: Pending MD notification: Latest Vital Signs: Temperature 97.5 , Pulse 97 , B/P 136 /85 , Respiratory Rate 18 , O2 SAT 97 , Room Air, O2 Flow Rate . Vital Sign Comment: EKG Rhythm: Sinus Rhythm Rhythm change?: N MD Notified?: - MD Response: Latest Omalley Fall Score: 25 Fall Risk: Medium Risk Safety Measures: Call light Within Reach, Bed Alarm Zone 2, Side Rails Side Rails x3, Bed position Low and Locked. Fall Precautions: Yellow Socks Yellow Gown Door Sign Patient Fall Education Report given to .
[2020-08-31 08:00] VITALS: BP 143/74
--- NOTE | 2020-08-31 08:00 | NUR ---
NURSE NOTES: pt responds to painful stimuli and opens eyes only answer a few questions very lethargic. Pt is refusing to take medications po. He is scheduled for MRI today. pt on body die maker, no signs of cardiac or respiratory distress. Bed in lowest position , call light within reach.
--- NOTE | 2020-08-31 10:29 | NUR ---
CASE MANAGEMENT:REVIEW 08/31/20 SI: HEPATIC ENCEPHALOPATHY METASTATIC PROSTATE CANCER. ACUTE HYPOXIA 97.2 84 20 143/74 95% ON RA IS: IV ROCEPHIN Q24 IVF@100/HR ALLOPURINOL PO Q12 LACTULOSE PO BID FOLATE PO QD : TELEMETRY STATUS DCP: FROM HOME
[2020-08-31] MEDS: Lactulose 20gm/30ml UDC ORAL SCH ×2 (11:19→18:40)
[2020-08-31] MEDS: D5NS 1,000 ML IV SCH ×3 (11:24→23:58)
--- NOTE | 2020-08-31 11:31 | Infectious Diseases Prog Note ---
Assessment/Plan Assessment/Plan A 1. UTI 2. prostate cancer 3. liver metastasis with elevated LFT 4. Anemia P 1. continue ceftriaxone until am 2. will follow up cultures Subjective ROS Limited/Unobtainable: Yes Constitutional: Reports: fatigue, anorexia; Denies: fever Respiratory: Reports: no symptoms Allergies: Coded Allergies: No Known Allergies (Unverified , 01/05/17) Objective Last 24 Hour Vital Signs Date Time Temp Pulse Resp B/P (MAP) Pulse Ox O2 Delivery O2 Flow Rate FiO2 08/31/20 08:00 84 08/31/20 08:00 97.2 84 20 143/74 (97) 94 08/31/20 04:00 83 08/31/20 04:00 97.5 97 18 136/85 (102) 97 08/31/20 00:00 97.2 86 17 125/79 (94) 95 08/30/20 21:00 Room Air 08/30/20 20:34 105 08/30/20 20:00 97.4 98 19 138/91 (107) 98 08/30/20 15:00 97.5 84 18 124/78 (93) 97 08/30/20 12:00 97.6 83 17 128/74 (92) 98 Height (Feet): 6 Height (Inches): 0.00 Weight (Pounds): 205 HEENT: mucous membranes moist Respiratory/Chest: lungs clear Cardiovascular: normal rate, other - left arm PICC line Abdomen: soft, non tender Extremities: other - mild legs edema Neurologic/Psychiatric: alert, responsive, other - drowsy Laboratory Tests Test 08/30/20 17:40 08/31/20 07:00 Ammonia 21 umol/L (11-32) 10 umol/L (11-32) L Current Medications Medications (Trade) Dose Ordered Sig/David Route PRN Reason Start Time Stop Time Status Last Admin Dose Admin Allopurinol (allopurinoL) 300 mg Q12HR ORAL 08/29/20 21:00 09/28/20 20:59 08/30/20 22:05 Ceftriaxone Sodium 1 gm/ Dextrose 55 ml @ 110 mls/hr Q24H IVPB 08/28/20 16:00 09/04/20 15:59 08/30/20 15:00 Chlorhexidine Gluconate (Cydney-Hex 2%) 1 applic DAILY@1999 TOPIC 08/30/20 20:00 11/28/20 19:59 08/30/20 20:00 Dextrose/Sodium Chloride 1,000 ml @ 100 mls/hr Q10H IV 08/27/20 18:36 09/26/20 18:35 08/31/20 11:24 Folic Acid (Folate) 5 mg DAILY ORAL 08/29/20 14:30 09/28/20 14:29 08/31/20 11:19 Gadobutrol (Gadavist) 7.5 mmol NOW PRN IV Radiology Procedure 08/30/20 12:00 09/03/20 11:59 Heparin Sodium/ Sodium Chloride (Heparin 1000 units/500ml Premix) 1,000 unit ONCE PRN IV PICC LINE 08/30/20 12:45 09/02/20 12:44 Lactulose (Cephulac) 20 gm BID ORAL 08/29/20 14:30 09/28/20 14:29 08/31/20 11:19 Lidocaine HCl (Xylocaine 1% 30ml) 30 ml ONCE PRN INJ PICC LINE 08/30/20 12:45 09/02/20 12:44 Lorazepam (Ativan 2mg/ml 1ml) 0.5 mg ONCE PRN IV before MRI 08/30/20 15:30 09/01/20 23:59 Ondansetron HCl (Zofran) 4 mg Q4H PRN IVP Nausea & Vomiting 08/29/20 09:15 09/28/20 09:14 08/29/20 12:51 Jim Miranda MD Aug 31, 2020 11:31
[2020-08-31 12:00] VITALS: BP 127/85
--- NOTE | 2020-08-31 12:14 | Neurology Progress Note ---
Interim History Interim History ROS Limited/Unobtainable: Yes Events: MRI is pending, pt is lying in bed remains letharigc Objective Physical Exam Last Vital Signs Date Time Temp Pulse Resp B/P (MAP) Pulse Ox O2 Delivery O2 Flow Rate FiO2 08/31/20 08:00 84 08/31/20 08:00 97.2 20 143/74 (97) 94 08/30/20 21:00 Room Air Laboratory Tests Test 08/30/20 17:40 08/31/20 07:00 Ammonia 21 umol/L (11-32) 10 umol/L (11-32) L Neurologic Exam Objective eview of Systems unable to assess Physical Exam General: pt is awake, lethargic, follows simple commands Nuero Exam: Comprehension intact, PERRLA Cranial Nerves II-XI tested, No nystagmus, no facial droop. Coordination: not able to test, Hearing intact No involuntary movements Bilat upper and lower extremities 2/5 strength Sensation intact. Gait not tested Impression/Recommendations Status: progressing Diagnostic Impression Assessment and Recs 1. AMS --> has UTI, MRI Brain with and without contrast was ordered yesterday is pending --> will call daughter for baseline neuro status as well, call again today 2. Lethargy --> Check MRI brain hold off any sedatives.-pending 3. Hepatic Encephalopathy likely due to liver dysfunction --> lactulose/rifaximin per gi 4. Failure to Thrive --> due to cancer 5. Metastatic prostate cancer --> has been getting infusion at [facility] 6 Anemia of chronic disease 7. Liver failure Thank you for allowing us to participate in patient's care, patient was seen with Dr. Tra Solorzano and plan of care was discussed he Lea Garduno [employer] Aug 31, 2020 12:14
--- NOTE | 2020-08-31 12:34 | Diagnostic Imaging Report ---
Indication: Altered mental status, history of metastatic prostatic carcinoma Technique: sagittal T1 fast spin echo, axial T1 and T2 FLAIR PROPELLER, axial T2 FS PROPELLER, T2* GRE, axial diffusion weighted images, post contrast axial and coronal T1 FLAIR PROPELLER images. ADC and exponential ADC maps generated Comparison: none Findings: . No abnormal areas of restricted diffusion to suggest acute infarction Enhancing intermediate signal material is seen occupying the bilateral convexity extra-axial spaces, superficial to the dura, measuring up to 10 mm thick in the left parietal region. Similar material is seen in the bilateral posterior fossa, right greater than left, measuring up to 10 mm thick. There is diffuse meningeal enhancement. There is and extra-axial mass which is mixed in signal on the precontrast images, enhances fairly diffusely and uniformly there is edema within the adjacent temporal parenchyma extending into the basal ganglia region. A similar mass is seen in the anterior left middle fossa which measures 2.7 cm in diameter also exhibiting temporal lobe edema. There is enhancing bilateral posterior parietal and occipital scalp soft tissue masses which measure up to 8 mm thick. There is also abnormal intermediate signal which enhances slightly within the diploic space of the calvarium. This is somewhat heterogeneous. Arising from the floor of the middle fossa which is round, elevates the right temporal tip, measures 3.5 cm in diameter. Mass effect is manifested largely by attenuation of the sulci and there is probably some slight compression of the ventricles. No definite shift of the midline structures. Also demonstrated is extensive facial tumor extending caudad from the middle fossae bilaterally, particularly on the left. Tumor is also seen within the posterior orbital damian bilaterally, particularly on the lateral orbital damian. Uncertain as to whether these compress the optic nerve or not. The visualized sinuses are clear Impression: Evidence of extensive subdural metastatic disease, involving both convexities and the bilateral posterior cranial fossa. Large extra-axial masses involving the anterior middle fossae bilaterally, right greater than left, with extensive subjacent parenchymal edema Extensive meningeal enhancement, presumably related to metastatic disease Some mass effect related to the above, as described Evidence of metastatic disease within the bilateral parietal scalp Evidence of extensive metastatic disease within the diploic space of the calvarium Orbital and facial tumor as described, not well delineated. Dedicated facial CT with contrast may be useful if clinically indicated No evidence of acute infarct
--- NOTE | 2020-08-31 12:45 | Nephrology Progress Note ---
Assessment/Plan Problem List: (1) Renal insufficiency (2) Liver failure (3) Prostate cancer (4) Bony metastasis (5) Anemia (6) Encephalopathy Assessment 59-year-old male presents with severe weakness. History of prostate cancer. Renal failure, serum creatinine 1.5 Severe anemia Elevated LFTs and bilirubin Plan August 31: No CHEM panel drawn today. Continue per consultants. Will check lab tomorrow. August 30: Labs reviewed. Marinol ordered for low appetite. Continue same. August 29: Allopurinol 300 mg twice a day ordered. Folic acid ordered. C ontinue per consultants. Anemia work-up Kidney and abdominal ultrasound Monitor renal parameters Urine studies PSA level Avoid nephrotoxic's IV fluid Continue per consultants Subjective ROS Limited/Unobtainable: No Constitutional: Reports: malaise, weakness Objective Objective Last 24 Hour Vital Signs Date Time Temp Pulse Resp B/P (MAP) Pulse Ox O2 Delivery O2 Flow Rate FiO2 08/31/20 08:00 84 08/31/20 08:00 97.2 84 20 143/74 (97) 94 08/31/20 04:00 83 08/31/20 04:00 97.5 97 18 136/85 (102) 97 08/31/20 00:00 97.2 86 17 125/79 (94) 95 08/30/20 21:00 Room Air 08/30/20 20:34 105 08/30/20 20:00 97.4 98 19 138/91 (107) 98 08/30/20 15:00 97.5 84 18 124/78 (93) 97 Intake and Output 08/30/20 08/31/20 19:00 07:00 Intake Total 340 ml 800 ml Output Total 300 ml Balance 40 ml 800 ml Intake Oral 240 ml IV Total 100 ml 800 ml Output Urine Total 300 ml Laboratory Tests 08/30/20 17:40: Ammonia 21 08/31/20 07:00: Ammonia 10L No CHEM panel drawn today Height (Feet): 6 Height (Inches): 0.00 Weight (Pounds): 205 General Appearance: no apparent distress, lethargic Cardiovascular: tachycardia Respiratory/Chest: decreased breath sounds Abdomen: distended Dean Brink MD Aug 31, 2020 12:45
--- NOTE | 2020-08-31 13:30 | Pulmonology Progress Note ---
Subjective ROS Limited/Unobtainable: No Constitutional: Reports: fatigue, anorexia; Denies: fever HEENT: Repors: no symptoms Respiratory: Reports: no symptoms Cardiovascular: Reports: no symptoms Gastrointestinal/Abdominal: Reports: no symptoms; Denies: nausea, vomiting, diarrhea Musculoskeletal: Denies: pain Allergies: Coded Allergies: No Known Allergies (Unverified , 01/05/17) Objective Last 24 Hour Vital Signs Date Time Temp Pulse Resp B/P (MAP) Pulse Ox O2 Delivery O2 Flow Rate FiO2 08/31/20 08:00 84 08/31/20 08:00 97.2 84 20 143/74 (97) 94 08/31/20 04:00 83 08/31/20 04:00 97.5 97 18 136/85 (102) 97 08/31/20 00:00 97.2 86 17 125/79 (94) 95 08/30/20 21:00 Room Air 08/30/20 20:34 105 08/30/20 20:00 97.4 98 19 138/91 (107) 98 08/30/20 15:00 97.5 84 18 124/78 (93) 97 Intake and Output 08/30/20 08/31/20 19:00 07:00 Intake Total 340 ml 800 ml Output Total 300 ml Balance 40 ml 800 ml Intake Oral 240 ml IV Total 100 ml 800 ml Output Urine Total 300 ml General Appearance: no acute distress HEENT: atraumatic Respiratory: lungs clear Cardiovascular: normal rate, regular rhythm Abdomen: soft, non tender Laboratory Tests 08/30/20 17:40: Ammonia 21 08/31/20 07:00: Ammonia 10L Current Medications Medications (Trade) Dose Ordered Sig/David Route PRN Reason Start Time Stop Time Status Last Admin Dose Admin Allopurinol (allopurinoL) 300 mg Q12HR ORAL 08/29/20 21:00 09/28/20 20:59 08/31/20 11:28 Ceftriaxone Sodium 1 gm/ Dextrose 55 ml @ 110 mls/hr Q24H IVPB 08/28/20 16:00 09/04/20 15:59 08/30/20 15:00 Chlorhexidine Gluconate (Cydney-Hex 2%) 1 applic DAILY@2000 TOPIC 08/30/20 20:00 11/28/20 19:59 08/30/20 20:00 Dextrose/Sodium Chloride 1,000 ml @ 100 mls/hr Q10H IV 08/27/20 18:36 09/26/20 18:35 08/31/20 11:24 Folic Acid (Folate) 5 mg DAILY ORAL 08/29/20 14:30 09/28/20 14:29 08/31/20 11:19 Gadobutrol (Gadavist) 7.5 mmol NOW PRN IV Radiology Procedure 08/30/20 12:00 09/03/20 11:59 Heparin Sodium/ Sodium Chloride (Heparin 1000 units/500ml Premix) 1,000 unit ONCE PRN IV PICC LINE 08/30/20 12:45 09/02/20 12:44 Lactulose (Cephulac) 20 gm BID ORAL 08/29/20 14:30 09/28/20 14:29 08/31/20 11:19 Lidocaine HCl (Xylocaine 1% 30ml) 30 ml ONCE PRN INJ PICC LINE 08/30/20 12:45 09/02/20 12:44 Lorazepam (Ativan 2mg/ml 1ml) 0.5 mg ONCE PRN IV before MRI 08/30/20 15:30 09/01/20 23:59 Ondansetron HCl (Zofran) 4 mg Q4H PRN IVP Nausea & Vomiting 08/29/20 09:15 09/28/20 09:14 08/29/20 12:51 Assessment/Plan Assessment/Plan 1. Metastatic prostate cancer - per heme onc 2. Encephalopathy, likely due to liver dysfunction -On lactulose, rifaximin per GI -MRI of the brain was negative for acute findings 3. DVT prophylaxis -On SCDs for DVT prophylaxis -Venous duplex ultrasound of legs negative for DVT (08/29) 4. Acute hypoxia; resolved -Now stable on room air -Provide supplemental oxygen and wean as tolerated 5. Small left and trace right pleural effusions -Monitor effusions, will consider if effusion increases in size 6. Risk of aspiration given altered mental status The care for this patient was discussed with my supervising physician. Time spent for this case was approximately 31 minutes. Siva Moreno Aug 31, 2020 13:30
[2020-08-31 16:00] VITALS: BP 133/90
[2020-08-31] MEDS: cefTRIAXone 1 GM in D5W 55 ML IVPB SCH (16:38)
--- NOTE | 2020-08-31 19:45 | NUR ---
NURSE NOTES: Report received from MARIANA Juan. Patient is awake, alerr and oriented x 0, non-verbal, open his eyes spontaneously but looks lethargic. site monitor is in place shows sinus rhythm. On room air, saturating 97-98%. On clear liquid diet, but per morning RN patient has not been drinking that much. On aspiration precaution, patient is bedbound. With double lumen PICC line on left upper arm, running D5NS @ 100cc/hour that is patent and intact. Safety measures are in place, bed in lowest and locked position, side rails up x 2, call light button and bedside table within reach, will continue plan of care.
[2020-08-31 20:00] VITALS: BP 151/94
--- NOTE | 2020-08-31 20:25 | General Progress Note ---
Subjective ROS Limited/Unobtainable: Yes Allergies: Coded Allergies: No Known Allergies (Unverified , 01/05/17) Objective Last 24 Hour Vital Signs Date Time Temp Pulse Resp B/P (MAP) Pulse Ox O2 Delivery O2 Flow Rate FiO2 08/31/20 12:00 100 08/31/20 08:00 84 08/31/20 08:00 97.2 84 20 143/74 (97) 94 08/31/20 04:00 83 08/31/20 04:00 97.5 97 18 136/85 (102) 97 08/31/20 00:00 97.2 86 17 125/79 (94) 95 08/31/20 00:00 89 08/30/20 21:00 Room Air 08/30/20 20:34 105 l Intake and Output 08/30/20 08/31/20 19:00 07:00 Intake Total 340 ml 800 ml Output Total 300 ml Balance 40 ml 800 ml Intake Oral 240 ml IV Total 100 ml 800 ml Output Urine Total 300 ml Laboratory Tests 08/31/20 07:00: Ammonia 10L Height (Feet): 6 Height (Inches): 0.00 Weight (Pounds): 205 General Appearance: lethargic Assessment/Plan Problem List: (1) Encephalopathy ICD Codes: G93.40 - Encephalopathy, unspecified SNOMED: 34099581 (2) Liver failure ICD Codes: K72.90 - Hepatic failure, unspecified without coma SNOMED: 19795377 Qualifiers: Qualified Codes: K72.90 - Hepatic failure, unspecified without coma (3) Prostate cancer ICD Codes: C61 - Malignant neoplasm of prostate SNOMED: 529055616 (4) Bony metastasis ICD Codes: C79.51 - Secondary malignant neoplasm of bone SNOMED: 04856059 (5) Anemia ICD Codes: D64.9 - Anemia, unspecified SNOMED: 231564170 Qualifiers: Qualified Codes: D64.9 - Anemia, unspecified Status: progressing Assessment/Plan: very lethargic check ammonia level change lactulose to rectal if needed liver failure check h/h elevated lft.awaiting response from gi re etiology anemia arf Gabrielle Ortiz MD Aug 31, 2020 20:25
--- NOTE | 2020-08-31 20:52 | NUR ---
NURSE HAND-OFF REPORT: Important Events on Shift:[]pt is opening eyes but is nonverbal. He watches TV and moves legs constantly. Pt is not able to take Lactulose PO this evening, he just kept medication in his mouth and didn't swallow it. requested from doctor Diana, to change med route. 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 Vital Sign Comment: [] EKG Rhythm: Sinus Tachycardia Rhythm change?: N MD Notified?: - MD Response: Latest Omalley Fall Score: 25 Fall Risk: Medium Risk Safety Measures: Call light Within Reach, Bed Alarm Zone 2, Side Rails Side Rails x3, Bed position Low and Locked. Fall Precautions: y Yellow Socks y Yellow Gown y Door Sign y Patient Fall Education y Report given to []Anabell/MARIANA
[2020-08-31] MEDS: Dyna-Hex 2% Top Sol 2oz TOPIC SCH (21:17)
[2020-09-01] VITALS (18 sets, daily range): BP systolic 92–156; BP diastolic 70–121
--- NOTE | 2020-09-01 | NUR ---
NURSE NOTES: Patient's blood pressure is 150/103, at this time he's sleeping. Inform Dr. Ortiz, awaiting for call back.
--- NOTE | 2020-09-01 04:00 | NUR ---
NURSE NOTES: Blood pressure is still elevated, inform again Dr. Ortiz and awaiting for call back.
--- NOTE | 2020-09-01 06:45 | Hematology/Onc Progress Note ---
Assessment/Plan Assessment/Plan Assessment and Recs # Metastatic prostate cancer - psa 1522 --> has been getting infusion at [facility] --> liver biopsy was recently done --> PSA remains markedly elevated --> continue outpatient onco care --> uro eval # Anemia of chronic disease due to underlying chronic medical issues, Multifactorial --> Anemia w/u has been ordered --> No evidence of hemolysis is noted, peripheral smear has been reviewed. --> Hgb goal >7. Transfuse prn. --> Epogen or iron at this time is not particularly indicated --> If unable to determine source, will need bone marrow biopsy --> hgb 8.2-->10 # Thrombocytopenia likely meylosuppresive due to cancer --> CT Innumerable hepatic metastatic masses with severe hepatic enlargement. --> plt 117 # Encephalopathy likely due to liver dysfucntion --> lactulose/rifaxamin per gi # Liver failure likely due to cancer --> ptt/inr high # Ascites --> para as needed --> pain management # Bony metastasis # Renal insufficiency # Elevated INR Time of note does not necessarily correspond to the time the patient was seen. Appreciate consultation greatly. Subjective Constitutional: Denies: no symptoms, chills, fever, malaise, weakness, other HEENT: Denies: no symptoms, eye pain, blurred vision, tearing, double vision, ear pain, ear discharge, nose pain, nose congestion, throat pain, throat swelling, mouth pain, mouth swelling, other Cardiovascular: Denies: no symptoms, chest pain, edema, irregular heart rate, lightheadedness, palpitations, syncope, other Respiratory: Denies: no symptoms, cough, shortness of breath, SOB with excertion, SOB at rest, sputum, wheezing, other Gastrointestinal/Abdominal: Denies: no symptoms, abdomen distended, abdominal pain, black stools, tarry stools, blood in stool, constipated, diarrhea, difficulty swallowing, nausea, poor appetite, poor fluid intake, rectal bleeding, vomiting, other Genitourinary: Denies: no symptoms, burning, discharge, frequency, flank pain, hematuria, incontinence, pain, urgency, other Neurologic/Psychiatric: Denies: no symptoms, anxiety, depressed, emotional problems, headache, numbness, paresthesia, pre-existing deficit, seizure, tingling, tremors, weakness, other Endocrine: Denies: no symptoms, excessive sweating, flushing, intolerance to cold, intolerance to heat, increased hunger, increased thirst, increased urine, unexplained weight gain, unexplained weight loss, other Allergies: Coded Allergies: No Known Allergies (Unverified , 01/05/17) Subjective 08/30 very agitated, may need picc line, have dw rn 08/31 labs are pending from am, no bleeding, meds noted, no night sweats 09/01 labs reviewed, extremely confused, seen by neuro Objective Objective Current Medications Medications (Trade) Dose Ordered Sig/David Route PRN Reason Start Time Stop Time Status Last Admin Dose Admin Allopurinol (allopurinoL) 300 mg Q12HR ORAL 08/29/20 21:00 09/28/20 20:59 08/31/20 21:17 Ceftriaxone Sodium 1 gm/ Dextrose 55 ml @ 110 mls/hr Q24H IVPB 08/28/20 16:00 09/04/20 15:59 08/31/20 16:38 Chlorhexidine Gluconate (Cydney-Hex 2%) 1 applic DAILY@2000 TOPIC 08/30/20 20:00 11/28/20 19:59 08/31/20 21:17 Dextrose/Sodium Chloride 1,000 ml @ 100 mls/hr Q10H IV 08/27/20 18:36 09/26/20 18:35 08/31/20 23:58 Folic Acid (Folate) 5 mg DAILY ORAL 08/29/20 14:30 09/28/20 14:29 08/31/20 11:19 Gadobutrol (Gadavist) 7.5 mmol NOW PRN IV Radiology Procedure 08/30/20 12:00 09/03/20 11:59 Heparin Sodium/ Sodium Chloride (Heparin 1000 units/500ml Premix) 1,000 unit ONCE PRN IV PICC LINE 08/30/20 12:45 09/02/20 12:44 Lactulose (Cephulac) 20 gm BID ORAL 08/29/20 14:30 09/28/20 14:29 08/31/20 18:40 Lidocaine HCl (Xylocaine 1% 30ml) 30 ml ONCE PRN INJ PICC LINE 08/30/20 12:45 09/02/20 12:44 Lorazepam (Ativan 2mg/ml 1ml) 0.5 mg ONCE PRN IV before MRI 08/30/20 15:30 09/01/20 23:59 Ondansetron HCl (Zofran) 4 mg Q4H PRN IVP Nausea & Vomiting 08/29/20 09:15 09/28/20 09:14 08/29/20 12:51 Last 24 Hour Vital Signs Date Time Temp Pulse Resp B/P (MAP) Pulse Ox O2 Delivery O2 Flow Rate FiO2 09/01/20 04:00 96.5 118 18 156/121 (133) 96 09/01/20 04:00 116 09/01/20 00:00 97.6 107 18 150/103 (119) 99 09/01/20 00:00 115 08/31/20 21:00 Room Air 08/31/20 20:00 105 08/31/20 20:00 97.6 108 20 151/94 (113) 98 08/31/20 16:00 97.4 110 20 133/90 (104) 95 08/31/20 16:00 111 08/31/20 12:00 100 08/31/20 12:00 97.0 99 18 127/85 (99) 94 08/31/20 09:00 Room Air 08/31/20 08:00 84 08/31/20 08:00 97.2 84 20 143/74 (97) 94 08/31/20 04:00 83 08/31/20 04:00 97.5 97 18 136/85 (102) 97 08/31/20 00:00 97.2 86 17 125/79 (94) 95 08/31/20 00:00 89 08/30/20 21:00 Room Air 08/30/20 20:34 105 08/30/20 20:00 97.4 98 19 138/91 (107) 98 08/30/20 15:00 97.5 84 18 124/78 (93) 97 08/30/20 12:00 97.6 83 17 128/74 (92) 98 08/30/20 09:00 Room Air 08/30/20 09:00 91 08/30/20 08:00 97.1 92 18 130/82 (98) 98 Intake and Output 08/31/20 09/01/20 19:00 07:00 Output Total 350 ml Balance -350 ml Output Urine Total 350 ml Labs Test 08/29/20 07:14 08/30/20 08:20 08/30/20 17:40 08/31/20 07:00 White Blood Count 4.8 K/UL (4.8-10.8) 5.1 K/UL (4.8-10.8) Red Blood Count 3.12 M/UL (4.70-6.10) 3.85 M/UL (4.70-6.10) Hemoglobin 8.2 G/DL (14.2-18.0) 10.3 G/DL (14.2-18.0) Hematocrit 26.0 % (42.0-52.0) 33.0 % (42.0-52.0) Mean Corpuscular Volume 83 FL (80-99) 86 FL (80-99) Mean Corpuscular Hemoglobin 26.4 PG (27.0-31.0) 26.7 PG (27.0-31.0) Mean Corpuscular Hemoglobin Concent 31.7 G/DL (32.0-36.0) 31.1 G/DL (32.0-36.0) Red Cell Distribution Width 23.4 % (11.6-14.8) 24.1 % (11.6-14.8) Platelet Count 75 K/UL (150-450) 91 K/UL (150-450) Mean Platelet Volume 7.0 FL (6.5-10.1) 8.0 FL (6.5-10.1) Neutrophils (%) (Auto) % (45.0-75.0) % (45.0-75.0) Lymphocytes (%) (Auto) % (20.0-45.0) % (20.0-45.0) Monocytes (%) (Auto) % (1.0-10.0) % (1.0-10.0) Eosinophils (%) (Auto) % (0.0-3.0) % (0.0-3.0) Basophils (%) (Auto) % (0.0-2.0) % (0.0-2.0) Differential Total Cells Counted 100 100 Neutrophils % (Manual) 78 % (45-75) 85 % (45-75) Lymphocytes % (Manual) 15 % (20-45) 9 % (20-45) Monocytes % (Manual) 3 % (1-10) 4 % (1-10) Eosinophils % (Manual) 1 % (0-3) 1 % (0-3) Basophils % (Manual) 0 % (0-2) 0 % (0-2) Band Neutrophils 3 % (0-8) 1 % (0-8) Nucleated Red Blood Cells 2 /100 WBC Platelet Estimate Decreased Decreased Platelet Morphology Normal Normal Polychromasia 1+ 1+ Hypochromasia 2+ 1+ Anisocytosis 3+ 3+ Target Cells Occasional Occasional Sodium Level 136 MMOL/L (136-145) 141 MMOL/L (136-145) Potassium Level 3.5 MMOL/L (3.5-5.1) 3.8 MMOL/L (3.5-5.1) Chloride Level 104 MMOL/L (98-107) 106 MMOL/L (98-107) Carbon Dioxide Level 22 MMOL/L (21-32) 21 MMOL/L (21-32) Anion Gap 10 mmol/L (5-15) 14 mmol/L (5-15) Blood Urea Nitrogen 22 mg/dL (7-18) 21 mg/dL (7-18) Creatinine 1.3 MG/DL (0.55-1.30) 1.4 MG/DL (0.55-1.30) Estimat Glomerular Filtration Rate > 60 mL/min (>60) > 60 mL/min (>60) Glucose Level 134 MG/DL (74-106) 94 MG/DL (74-106) Uric Acid 13.5 MG/DL (2.6-7.2) 13.0 MG/DL (2.6-7.2) Calcium Level 8.5 MG/DL (8.5-10.1) 9.1 MG/DL (8.5-10.1) Phosphorus Level 2.7 MG/DL (2.5-4.9) 3.1 MG/DL (2.5-4.9) Magnesium Level 1.9 MG/DL (1.8-2.4) 2.1 MG/DL (1.8-2.4) Total Bilirubin 2.9 MG/DL (0.2-1.0) 3.8 MG/DL (0.2-1.0) Direct Bilirubin 2.5 MG/DL (0.0-0.3) 3.1 MG/DL (0.0-0.3) Aspartate Amino Transf (AST/SGOT) 127 U/L (15-37) 157 U/L (15-37) Alanine Aminotransferase (ALT/SGPT) 42 U/L (12-78) 53 U/L (12-78) Alkaline Phosphatase 921 U/L (46-116) 1064 U/L (46-116) Ammonia 38 umol/L (11-32) 21 umol/L (11-32) 10 umol/L (11-32) Total Creatine Kinase 280 U/L (26-308) C-Reactive Protein, Quantitative 9.8 mg/dL (0.00-0.90) Pro-B-Type Natriuretic Peptide 823 pg/mL (0-125) Total Protein 5.5 G/DL (6.4-8.2) 6.0 G/DL (6.4-8.2) Albumin 2.0 G/DL (3.4-5.0) 2.4 G/DL (3.4-5.0) Globulin 3.5 g/dL 3.6 g/dL Albumin/Globulin Ratio 0.6 (1.0-2.7) 0.7 (1.0-2.7) Vitamin B12 Level > 2000 PG/ML (193-986) Gamma Glutamyl Transpeptidase 1457 U/L (5-85) Test 09/01/20 05:00 Height (Feet): 6 Height (Inches): 0.00 Weight (Pounds): 205 Objective Physical Exam Vitals: reviewed General Appearance: other - Slow speaking, Chronically Ill Head: normocephalic, atraumatic Respiratory: lungs clear, normal breath sounds Cardiovascular: regular rate, rhythm Gastrointestinal: non tender, distended, other - fluid wave Genitourinary: no CVA tenderness Musculoskeletal: back normal Neurologic: alert, DTRs symmetric, motor weakness - generalized, other - slightly lethargic Psychiatric: other - Initially refusing care and suspicious Skin: warm/dry, pallor - Sallow ++Cr Haddad MD Sep 01, 2020 06:45
--- NOTE | 2020-09-01 07:15 | NUR ---
NURSE NOTES: Received report from Gogo/RN, Observed patient awake, lying semi-ordoñez's, resting in bed. on room air, no acute distress/SOB noted. PICC line on left upper arm, patent and intact, D5 1/2NS running @ 100cc/hr. Bed in low position and locked, Call light within reach. Encouraged to use call light when needed. Will continue plan of care.
--- NOTE | 2020-09-01 07:40 | NUR ---
NURSE HAND-OFF REPORT: Important Events on Shift: Patient is still AO X 0, non verbal, very lethargic, blood pressure has been elevated and MD's were aware. Patient Status: Plan of care discussed Diet: Clear liquid diet Pending Orders: none Pending Results/Labs:am lab result Pending MD notification:none Latest Vital Signs: Temperature 96.5 , Pulse 118 , B/P 156 /121 , Respiratory Rate 18 , O2 SAT 96 , Room Air, O2 Flow Rate . Vital Sign Comment: elevated EKG Rhythm: Sinus Tachycardia Rhythm change?: N MD Notified?: - MD Response: Latest Omalley Fall Score: 50 Fall Risk: High Risk Safety Measures: Call light Within Reach, Bed Alarm Zone 2, Side Rails Side Rails x3, Bed position Low and Locked. Fall Precautions: Yellow Socks Yellow Gown Door Sign Patient Fall Education Report given to MARIANA Flynn.
[2020-09-01 07:41] LABS: PHOSPHORUS 2.8 MG/DL (2.5-4.9)
[2020-09-01 07:42] LABS: HEMATOCRIT 29.4 % (42.0-52.0); HEMOGLOBIN 9.4 G/DL (14.2-18.0); INR 1.6 (0.9-1.1); MEAN CORPUSCULAR VOLUME 84 FL (80-99); PLATELET COUNT 80 K/UL (150-450); RED BLOOD COUNT 3.49 M/UL (4.70-6.10); RED CELL DISTRIBUTION WIDTH 24.3 % (11.6-14.8); WHITE BLOOD COUNT 6.9 K/UL (4.8-10.8)
[2020-09-01 07:43] LABS: ALBUMIN 2.1 G/DL (3.4-5.0); ALBUMIN/GLOBULIN RATIO 0.6 (1.0-2.7); BILIRUBIN,TOTAL 3.4 MG/DL (0.2-1.0); CALCIUM 8.4 MG/DL (8.5-10.1); CREATININE 1.5 MG/DL (0.55-1.30); POTASSIUM 3.7 MMOL/L (3.5-5.1)
[2020-09-01 07:45] LABS: BILIRUBIN,DIRECT 2.8 MG/DL (0.0-0.3)
--- NOTE | 2020-09-01 08:47 | General Progress Note ---
Subjective ROS Limited/Unobtainable: No Allergies: Coded Allergies: No Known Allergies (Unverified , 01/05/17) Objective Last 24 Hour Vital Signs Date Time Temp Pulse Resp B/P (MAP) Pulse Ox O2 Delivery O2 Flow Rate FiO2 09/01/20 08:00 96.5 124 20 151/100 (117) 95 09/01/20 04:00 96.5 118 18 156/121 (133) 96 09/01/20 04:00 116 09/01/20 00:00 97.6 107 18 150/103 (119) 99 09/01/20 00:00 115 08/31/20 21:00 Room Air 08/31/20 20:00 105 08/31/20 20:00 97.6 108 20 151/94 (113) 98 08/31/20 16:00 97.4 110 20 133/90 (104) 95 08/31/20 16:00 111 08/31/20 12:00 100 08/31/20 12:00 97.0 99 18 127/85 (99) 94 08/31/20 09:00 Room Air Intake and Output 08/31/20 09/01/20 19:00 07:00 Output Total 350 ml Balance -350 ml Output Urine Total 350 ml Laboratory Tests 09/01/20 06:34: White Blood Count 6.9, Red Blood Count 3.49L, Hemoglobin 9.4L, Hematocrit 29.4L, Mean Corpuscular Volume 84, Mean Corpuscular Hemoglobin 27.0, Mean Corpuscular Hemoglobin Concent 32.1, Red Cell Distribution Width 24.3H, Platelet Count 80L, Mean Platelet Volume 10.2H, Neutrophils (%) (Auto) , Lymphocytes (%) (Auto) , Monocytes (%) (Auto) , Eosinophils (%) (Auto) , Basophils (%) (Auto) , Neutrophils % (Manual) [Pending], Lymphocytes % (Manual) [Pending], Platelet Estimate [Pending], Platelet Morphology [Pending], Prothrombin Time 16.9H, Prothromb Time International Ratio 1.6H, Activated Partial Thromboplast Time 31, Sodium Level 142, Potassium Level 3.7, Chloride Level 108H, Carbon Dioxide Level 20L, Anion Gap 14, Blood Urea Nitrogen 21H, Creatinine 1.5H, Estimat Glomerular Filtration Rate 58.4, Glucose Level 148H, Uric Acid 10.0H, Calcium Level 8.4L, Phosphorus Level 2.8, Magnesium Level 2.0, Total Bilirubin 3.4H, Direct Bilirubin 2.8H, Aspartate Amino Transf (AST/SGOT) 180H, Alanine Aminotransferase (ALT/SGPT) 58, Alkaline Phosphatase 1001H, Ammonia 38H, C- Reactive Protein, Quantitative 8.8H, Total Protein 5.8L, Albumin 2.1L, Globulin 3.7, Albumin/Globulin Ratio 0.6L Height (Feet): 6 Height (Inches): 0.00 Weight (Pounds): 205 General Appearance: no apparent distress EENT: normal ENT inspection Neck: supple Cardiovascular: bradycardia Respiratory/Chest: decreased breath sounds Abdomen: hypoactive bowel sounds, distended Extremities: non-tender Assessment/Plan Status: progressing Assessment/Plan: Assessment/Plan Assessment/Plan: Assessment - metastatic prostate CA - hepatomegally - nausea - edema - poor prognosis Recommendations - supportive care - oncology opinion - SCD -plan NGT and NGTF Osito Zelaya MD Sep 01, 2020 08:47
[2020-09-01] MEDS: Lactulose 20gm/30ml UDC ORAL SCH ×2 (09:45→18:32)
--- NOTE | 2020-09-01 09:53 | Cardiac Electrophysiology PN ---
Subjective Subjective Unresponsive and tachycardic>>> transfer to ICU as still full Code [id number] Objective Last 24 Hour Vital Signs Date Time Temp Pulse Resp B/P (MAP) Pulse Ox O2 Delivery O2 Flow Rate FiO2 09/01/20 08:00 96.5 124 20 151/100 (117) 95 09/01/20 04:00 96.5 118 18 156/121 (133) 96 09/01/20 04:00 116 09/01/20 00:00 97.6 107 18 150/103 (119) 99 09/01/20 00:00 115 08/31/20 21:00 Room Air 08/31/20 20:00 105 08/31/20 20:00 97.6 108 20 151/94 (113) 98 08/31/20 16:00 97.4 110 20 133/90 (104) 95 08/31/20 16:00 111 08/31/20 12:00 100 08/31/20 12:00 97.0 99 18 127/85 (99) 94 Intake and Output 08/31/20 09/01/20 19:00 07:00 Output Total 350 ml Balance -350 ml Output Urine Total 350 ml Laboratory Tests Test 09/01/20 06:34 White Blood Count 6.9 K/UL (4.8-10.8) Red Blood Count 3.49 M/UL (4.70-6.10) L Hemoglobin 9.4 G/DL (14.2-18.0) L Hematocrit 29.4 % (42.0-52.0) L Mean Corpuscular Volume 84 FL (80-99) Mean Corpuscular Hemoglobin 27.0 PG (27.0-31.0) Mean Corpuscular Hemoglobin Concent 32.1 G/DL (32.0-36.0) Red Cell Distribution Width 24.3 % (11.6-14.8) H Platelet Count 80 K/UL (150-450) L Mean Platelet Volume 10.2 FL (6.5-10.1) H Neutrophils (%) (Auto) % (45.0-75.0) Lymphocytes (%) (Auto) % (20.0-45.0) Monocytes (%) (Auto) % (1.0-10.0) Eosinophils (%) (Auto) % (0.0-3.0) Basophils (%) (Auto) % (0.0-2.0) Differential Total Cells Counted 100 Neutrophils % (Manual) 79 % (45-75) H Lymphocytes % (Manual) 13 % (20-45) L Monocytes % (Manual) 8 % (1-10) Eosinophils % (Manual) 0 % (0-3) Basophils % (Manual) 0 % (0-2) Band Neutrophils 0 % (0-8) Nucleated Red Blood Cells 6 /100 WBC Platelet Estimate Decreased L Platelet Morphology Normal Hypochromasia 1+ Anisocytosis 2+ Macrocytosis 1+ Target Cells 1+ Prothrombin Time 16.9 SEC (9.30-11.50) H Prothromb Time International Ratio 1.6 (0.9-1.1) H Activated Partial Thromboplast Time 31 SEC (23-33) Sodium Level 142 MMOL/L (136-145) Potassium Level 3.7 MMOL/L (3.5-5.1) Chloride Level 108 MMOL/L (98-107) H Carbon Dioxide Level 20 MMOL/L (21-32) L Anion Gap 14 mmol/L (5-15) Blood Urea Nitrogen 21 mg/dL (7-18) H Creatinine 1.5 MG/DL (0.55-1.30) H Estimat Glomerular Filtration Rate 58.4 mL/min (>60) Glucose Level 148 MG/DL (74-106) H Uric Acid 10.0 MG/DL (2.6-7.2) H Calcium Level 8.4 MG/DL (8.5-10.1) L Phosphorus Level 2.8 MG/DL (2.5-4.9) Magnesium Level 2.0 MG/DL (1.8-2.4) Total Bilirubin 3.4 MG/DL (0.2-1.0) H Direct Bilirubin 2.8 MG/DL (0.0-0.3) H Aspartate Amino Transf (AST/SGOT) 180 U/L (15-37) H Alanine Aminotransferase (ALT/SGPT) 58 U/L (12-78) Alkaline Phosphatase 1001 U/L (46-116) H Ammonia 38 umol/L (11-32) H C-Reactive Protein, Quantitative 8.8 mg/dL (0.00-0.90) H Total Protein 5.8 G/DL (6.4-8.2) L Albumin 2.1 G/DL (3.4-5.0) L Globulin 3.7 g/dL Albumin/Globulin Ratio 0.6 (1.0-2.7) L David Ellis MD Sep 01, 2020 09:53
--- NOTE | 2020-09-01 10:10 | NUR ---
TRANSFER TO FLOOR: Patient transferred to ICU, Bed H per Dr. Ellis order. Report given to Trudy/RN. Belongings check done with receiving nurse and signed Family (Judy) informed of transfer.
--- NOTE | 2020-09-01 10:15 | NUR ---
NURSE NOTES: Received pt from Telemetry,per bed ,lethargic,nonverbal ,opens eyes occasionally,no resp distress presented,on RA,S-Tach on the monitor ,Monzon cath draining faiza colored urine ,skin warm and dry with ALAN PICC line intact IVF D5NS at 100 ml/hr,SR up x2 HOB elevated bed lock in lowest position will continue with plans of care.
--- NOTE | 2020-09-01 10:37 | Infectious Diseases Prog Note ---
Assessment/Plan Assessment/Plan A 1. UTI 2. prostate cancer 3. liver metastasis with elevated LFT 4. Anemia 5. Subdural metastatic diseas 6. Bony metastatic disedea P 1. continue ceftriaxone 2. Poo prognosis, no chance of recovery Subjective ROS Limited/Unobtainable: Yes Constitutional: Reports: other - transferred to ICU Allergies: Coded Allergies: No Known Allergies (Unverified , 01/05/17) Objective Last 24 Hour Vital Signs Date Time Temp Pulse Resp B/P (MAP) Pulse Ox O2 Delivery O2 Flow Rate FiO2 09/01/20 08:00 96.5 124 20 151/100 (117) 95 09/01/20 04:00 96.5 118 18 156/121 (133) 96 09/01/20 04:00 116 09/01/20 00:00 97.6 107 18 150/103 (119) 99 09/01/20 00:00 115 08/31/20 21:00 Room Air 08/31/20 20:00 105 08/31/20 20:00 97.6 108 20 151/94 (113) 98 08/31/20 16:00 97.4 110 20 133/90 (104) 95 08/31/20 16:00 111 08/31/20 12:00 100 08/31/20 12:00 97.0 99 18 127/85 (99) 94 Height (Feet): 6 Height (Inches): 0.00 Weight (Pounds): 205 HEENT: normocephalic Respiratory/Chest: lungs clear Cardiovascular: tachycardia Abdomen: soft, non tender Extremities: other - generalied edema Neurologic/Psychiatric: unresponsiveness Laboratory Tests Test 09/01/20 06:34 White Blood Count 6.9 K/UL (4.8-10.8) Red Blood Count 3.49 M/UL (4.70-6.10) L Hemoglobin 9.4 G/DL (14.2-18.0) L Hematocrit 29.4 % (42.0-52.0) L Mean Corpuscular Volume 84 FL (80-99) Mean Corpuscular Hemoglobin 27.0 PG (27.0-31.0) Mean Corpuscular Hemoglobin Concent 32.1 G/DL (32.0-36.0) Red Cell Distribution Width 24.3 % (11.6-14.8) H Platelet Count 80 K/UL (150-450) L Mean Platelet Volume 10.2 FL (6.5-10.1) H Neutrophils (%) (Auto) % (45.0-75.0) Lymphocytes (%) (Auto) % (20.0-45.0) Monocytes (%) (Auto) % (1.0-10.0) Eosinophils (%) (Auto) % (0.0-3.0) Basophils (%) (Auto) % (0.0-2.0) Differential Total Cells Counted 100 Neutrophils % (Manual) 79 % (45-75) H Lymphocytes % (Manual) 13 % (20-45) L Monocytes % (Manual) 8 % (1-10) Eosinophils % (Manual) 0 % (0-3) Basophils % (Manual) 0 % (0-2) Band Neutrophils 0 % (0-8) Nucleated Red Blood Cells 6 /100 WBC Platelet Estimate Decreased L Platelet Morphology Normal Hypochromasia 1+ Anisocytosis 2+ Macrocytosis 1+ Target Cells 1+ Prothrombin Time 16.9 SEC (9.30-11.50) H Prothromb Time International Ratio 1.6 (0.9-1.1) H Activated Partial Thromboplast Time 31 SEC (23-33) Sodium Level 142 MMOL/L (136-145) Potassium Level 3.7 MMOL/L (3.5-5.1) Chloride Level 108 MMOL/L (98-107) H Carbon Dioxide Level 20 MMOL/L (21-32) L Anion Gap 14 mmol/L (5-15) Blood Urea Nitrogen 21 mg/dL (7-18) H Creatinine 1.5 MG/DL (0.55-1.30) H Estimat Glomerular Filtration Rate 58.4 mL/min (>60) Glucose Level 148 MG/DL (74-106) H Uric Acid 10.0 MG/DL (2.6-7.2) H Calcium Level 8.4 MG/DL (8.5-10.1) L Phosphorus Level 2.8 MG/DL (2.5-4.9) Magnesium Level 2.0 MG/DL (1.8-2.4) Total Bilirubin 3.4 MG/DL (0.2-1.0) H Direct Bilirubin 2.8 MG/DL (0.0-0.3) H Aspartate Amino Transf (AST/SGOT) 180 U/L (15-37) H Alanine Aminotransferase (ALT/SGPT) 58 U/L (12-78) Alkaline Phosphatase 1001 U/L (46-116) H Ammonia 38 umol/L (11-32) H C-Reactive Protein, Quantitative 8.8 mg/dL (0.00-0.90) H Total Protein 5.8 G/DL (6.4-8.2) L Albumin 2.1 G/DL (3.4-5.0) L Globulin 3.7 g/dL Albumin/Globulin Ratio 0.6 (1.0-2.7) L Current Medications Medications (Trade) Dose Ordered Sig/David Route PRN Reason Start Time Stop Time Status Last Admin Dose Admin Allopurinol (allopurinoL) 300 mg Q12HR ORAL 08/29/20 21:00 09/28/20 20:59 08/31/20 21:17 Ceftriaxone Sodium 1 gm/ Dextrose 55 ml @ 110 mls/hr Q24H IVPB 08/28/20 16:00 09/04/20 15:59 08/31/20 16:38 Chlorhexidine Gluconate (Cydney-Hex 2%) 1 applic DAILY@2000 TOPIC 08/30/20 20:00 11/28/20 19:59 08/31/20 21:17 Dextrose/Sodium Chloride 1,000 ml @ 100 mls/hr Q10H IV 08/27/20 18:36 09/26/20 18:35 08/31/20 23:58 Folic Acid (Folate) 5 mg DAILY ORAL 08/29/20 14:30 09/28/20 14:29 08/31/20 11:19 Gadobutrol (Gadavist) 7.5 mmol NOW PRN IV Radiology Procedure 08/30/20 12:00 09/03/20 11:59 Heparin Sodium/ Sodium Chloride (Heparin 1000 units/500ml Premix) 1,000 unit ONCE PRN IV PICC LINE 08/30/20 12:45 09/02/20 12:44 Hydralazine HCl (Apresoline) 10 mg Q2H PRN IV sbp>170 09/01/20 10:00 11/30/20 09:59 Lactulose (Cephulac) 20 gm BID ORAL 08/29/20 14:30 09/28/20 14:29 08/31/20 18:40 Lidocaine HCl (Xylocaine 1% 30ml) 30 ml ONCE PRN INJ PICC LINE 08/30/20 12:45 09/02/20 12:44 Lorazepam (Ativan 2mg/ml 1ml) 0.5 mg ONCE PRN IV before MRI 08/30/20 15:30 09/01/20 23:59 Ondansetron HCl (Zofran) 4 mg Q4H PRN IVP Nausea & Vomiting 08/29/20 09:15 09/28/20 09:14 08/29/20 12:51 Jim Miranda MD Sep 01, 2020 10:37
--- NOTE | 2020-09-01 10:38 | Pulmonology Progress Note ---
Subjective ROS Limited/Unobtainable: No Interval Events: Poorly responsive; transferred to ICU Constitutional: Reports: no symptoms HEENT: Repors: no symptoms Respiratory: Reports: no symptoms Cardiovascular: Reports: no symptoms Gastrointestinal/Abdominal: Reports: no symptoms; Denies: nausea, vomiting, diarrhea Neurologic: Reports: confusion Musculoskeletal: Denies: pain Allergies: Coded Allergies: No Known Allergies (Unverified , 01/05/17) Objective Last 24 Hour Vital Signs Date Time Temp Pulse Resp B/P (MAP) Pulse Ox O2 Delivery O2 Flow Rate FiO2 09/01/20 08:00 96.5 124 20 151/100 (117) 95 09/01/20 04:00 96.5 118 18 156/121 (133) 96 09/01/20 04:00 116 09/01/20 00:00 97.6 107 18 150/103 (119) 99 09/01/20 00:00 115 08/31/20 21:00 Room Air 08/31/20 20:00 105 08/31/20 20:00 97.6 108 20 151/94 (113) 98 08/31/20 16:00 97.4 110 20 133/90 (104) 95 08/31/20 16:00 111 08/31/20 12:00 100 08/31/20 12:00 97.0 99 18 127/85 (99) 94 Intake and Output 08/31/20 09/01/20 19:00 07:00 Output Total 350 ml Balance -350 ml Output Urine Total 350 ml General Appearance: no acute distress HEENT: atraumatic Respiratory: lungs clear Cardiovascular: normal rate, regular rhythm Abdomen: soft, non tender Laboratory Tests 09/01/20 06:34: White Blood Count 6.9, Red Blood Count 3.49L, Hemoglobin 9.4L, Hematocrit 29.4L, Mean Corpuscular Volume 84, Mean Corpuscular Hemoglobin 27.0, Mean Corpuscular Hemoglobin Concent 32.1, Red Cell Distribution Width 24.3H, Platelet Count 80L, Mean Platelet Volume 10.2H, Neutrophils (%) (Auto) , Lymphocytes (%) (Auto) , Monocytes (%) (Auto) , Eosinophils (%) (Auto) , Basophils (%) (Auto) , Differential Total Cells Counted 100, Neutrophils % (Manual) 79H, Lymphocytes % (Manual) 13L, Monocytes % (Manual) 8, Eosinophils % (Manual) 0, Basophils % (Manual) 0, Band Neutrophils 0, Nucleated Red Blood Cells 6, Platelet Estimate DecreasedL, Platelet Morphology Normal, Hypochromasia 1+, Anisocytosis 2+, Macro cytosis 1+, Target Cells 1+, Prothrombin Time 16.9H, Prothromb Time International Ratio 1.6H, Activated Partial Thromboplast Time 31, Sodium Level 142, Potassium Level 3.7, Chloride Level 108H, Carbon Dioxide Level 20L, Anion Gap 14, Blood Urea Nitrogen 21H, Creatinine 1.5H, Estimat Glomerular Filtration Rate 58.4, Glucose Level 148H, Uric Acid 10.0H, Calcium Level 8.4L, Phosphorus Level 2.8, Magnesium Level 2.0, Total Bilirubin 3.4H, Direct Bilirubin 2.8H, Aspartate Amino Transf (AST/SGOT) 180H, Alanine Aminotransferase (ALT/SGPT) 58, Alkaline Phosphatase 1001H, Ammonia 38H, C-Reactive Protein, Quantitative 8.8H, Total Protein 5.8L, Albumin 2.1L, Globulin 3.7, Albumin/Globulin Ratio 0.6L Current Medications Medications (Trade) Dose Ordered Sig/David Route PRN Reason Start Time Stop Time Status Last Admin Dose Admin Allopurinol (allopurinoL) 300 mg Q12HR ORAL 08/29/20 21:00 09/28/20 20:59 08/31/20 21:17 Ceftriaxone Sodium 1 gm/ Dextrose 55 ml @ 110 mls/hr Q24H IVPB 08/28/20 16:00 09/04/20 15:59 08/31/20 16:38 Chlorhexidine Gluconate (Cydney-Hex 2%) 1 applic DAILY@2000 TOPIC 08/30/20 20:00 11/28/20 19:59 08/31/20 21:17 Dextrose/Sodium Chloride 1,000 ml @ 100 mls/hr Q10H IV 08/27/20 18:36 09/26/20 18:35 08/31/20 23:58 Folic Acid (Folate) 5 mg DAILY ORAL 08/29/20 14:30 09/28/20 14:29 08/31/20 11:19 Gadobutrol (Gadavist) 7.5 mmol NOW PRN IV Radiology Procedure 08/30/20 12:00 09/03/20 11:59 Heparin Sodium/ Sodium Chloride (Heparin 1000 units/500ml Premix) 1,000 unit ONCE PRN IV PICC LINE 08/30/20 12:45 09/02/20 12:44 Hydralazine HCl (Apresoline) 10 mg Q2H PRN IV sbp>170 09/01/20 10:00 11/30/20 09:59 Lactulose (Cephulac) 20 gm BID ORAL 08/29/20 14:30 09/28/20 14:29 08/31/20 18:40 Lidocaine HCl (Xylocaine 1% 30ml) 30 ml ONCE PRN INJ PICC LINE 08/30/20 12:45 09/02/20 12:44 Lorazepam (Ativan 2mg/ml 1ml) 0.5 mg ONCE PRN IV before MRI 08/30/20 15:30 09/01/20 23:59 Ondansetron HCl (Zofran) 4 mg Q4H PRN IVP Nausea & Vomiting 08/29/20 09:15 09/28/20 09:14 08/29/20 12:51 Assessment/Plan Assessment/Plan 1. Metastatic prostate cancer - per heme onc 2. Encephalopathy, likely due to liver dysfunction -On lactulose, rifaximin per GI -MRI of the brain was negative for acute findings 3. DVT prophylaxis -On SCDs for DVT prophylaxis -Venous duplex ultrasound of legs negative for DVT (08/29) 4. Acute hypoxia; resolved -Now stable on room air -Provide supplemental oxygen and wean as tolerated 5. Small left and trace right pleural effusions -Monitor effusions, will consider if effusion increases in size 6. Risk of aspiration given altered mental status Will monitor in ICU WIll check ABG' Respiratory status is stable Keshawn Waller MD Sep 01, 2020 10:38
--- NOTE | 2020-09-01 11:16 | NUR ---
RD ASSESSMENT & RECOMMENDATIONS SEE CARE ACTIVITY FOR COMPLETE ASSESSMENT DAILY ESTIMATED NEEDS: Needs based on cancer 84kg 25-30 kcals/kg 2538-9457 total kcals 1-2 g protein/kg 84-168 g total protein Fluid per MD NUTRITION DIAGNOSIS: Inadequate oral po intake r/t clincal status, encephalopathy as evidenced by pt w/ mets prostate cacer, liver disease, elevated ammonia, AO x0, unable to tolerate po intake, now w/ orders for non oral feeds. CURRENT DIET: Clear Liquid-> 0% intake CURRENT TF:Now Glucerna 1.2 @55ml/hr ENTERAL NUTRITION RECOMMENDATIONS: Vital 1.2 goal of 60ml/hr x24 hrs as tolerated w/ D5 @100ml/hr to provide 1440ml, 1728 kcal, 108g pro, 1168ml free H2O - W/ added D5 @100ml/hr, provides added 408 kcal. - Initiate Vital 1.2 @20ml/hr, advance as tolerated slowly to goal. - Run at rate tolerated. - Flush per MD, HOB over 30 degrees ADDITIONAL RECOMMENDATIONS: 1) Accuchecks w/ niss 2) Obtain a calibrated bed scale wt 3) Monitor lytes, replete as needed. 4) Follow ICU status
--- NOTE | 2020-09-01 12:40 | NUR ---
NURSE NOTES: Mr. Hiro Briones ( Friend) made aware patient got transferred to ICU
--- NOTE | 2020-09-01 13:41 | Nephrology Progress Note ---
Assessment/Plan Problem List: (1) Renal insufficiency (2) Liver failure (3) Prostate cancer (4) Bony metastasis (5) Anemia (6) Encephalopathy Assessment 59-year-old male presents with severe weakness. History of prostate cancer. Renal failure, serum creatinine 1.5 Severe anemia Elevated LFTs and bilirubin Plan September 01: Labs reviewed. Creatinine 1.5. Patient transferred to ICU for poor responsiveness. Tachycardic and blood pressure other controlled. Cardiology and pulmonary on board. ABG waiting. Stable from renal standpoint of view. August 31: No CHEM panel drawn today. Continue per consultants. Will check lab tomorrow. August 30: Labs reviewed. Marinol ordered for low appetite. Continue same. August 29: Allopurinol 300 mg twice a day ordered. Folic acid ordered. Continue per consultants. Anemia work-up Kidney and abdominal ultrasound Monitor renal parameters Urine studies PSA level Avoid nephrotoxic's IV fluid Continue per consultants Subjective ROS Limited/Unobtainable: Yes Objective Objective Last 24 Hour Vital Signs Date Time Temp Pulse Resp B/P (MAP) Pulse Ox O2 Delivery O2 Flow Rate FiO2 09/01/20 08:00 96.5 124 20 151/100 (117) 95 09/01/20 08:00 120 09/01/20 04:00 96.5 118 18 156/121 (133) 96 09/01/20 04:00 116 09/01/20 00:00 97.6 107 18 150/103 (119) 99 09/01/20 00:00 115 08/31/20 21:00 Room Air 08/31/20 20:00 105 08/31/20 20:00 97.6 108 20 151/94 (113) 98 08/31/20 16:00 97.4 110 20 133/90 (104) 95 08/31/20 16:00 111 Intake and Output 08/31/20 09/01/20 19:00 07:00 Output Total 350 ml Balance -350 ml Output Urine Total 350 ml Current Medications Medications (Trade) Dose Ordered Sig/David Route PRN Reason Start Time Stop Time Status Last Admin Dose Admin Allopurinol (allopurinoL) 300 mg Q12HR ORAL 08/29/20 21:00 09/28/20 20:59 08/31/20 21:17 Ceftriaxone Sodium 1 gm/ Dextrose 55 ml @ 110 mls/hr Q24H IVPB 08/28/20 16:00 09/04/20 15:59 08/31/20 16:38 Chlorhexidine Gluconate (Cydney-Hex 2%) 1 applic DAILY@2000 TOPIC 08/30/20 20:00 11/28/20 19:59 08/31/20 21:17 Dextrose/Sodium Chloride 1,000 ml @ 100 mls/hr Q10H IV 08/27/20 18:36 09/26/20 18:35 08/31/20 23:58 Folic Acid (Folate) 5 mg DAILY ORAL 08/29/20 14:30 09/28/20 14:29 08/31/20 11:19 Hydralazine HCl (Apresoline) 10 mg Q2H PRN IV sbp>170 09/01/20 10:00 11/30/20 09:59 Lactulose (Cephulac) 20 gm BID ORAL 08/29/20 14:30 09/28/20 14:29 08/31/20 18:40 Lorazepam (Ativan 2mg/ml 1ml) 0.5 mg ONCE PRN IV before MRI 08/30/20 15:30 09/01/20 23:59 Ondansetron HCl (Zofran) 4 mg Q4H PRN IVP Nausea & Vomiting 08/29/20 09:15 09/28/20 09:14 08/29/20 12:51 Laboratory Tests 09/01/20 06:34: White Blood Count 6.9, Red Blood Count 3.49L, Hemoglobin 9.4L, Hematocrit 29.4L, Mean Corpuscular Volume 84, Mean Corpuscular Hemoglobin 27.0, Mean Corpuscular Hemoglobin Concent 32.1, Red Cell Distribution Width 24.3H, Platelet Count 80L, Mean Platelet Volume 10.2H, Neutrophils (%) (Auto) , Lymphocytes (%) (Auto) , Monocytes (%) (Auto) , Eosinophils (%) (Auto) , Basophils (%) (Auto) , Differential Total Cells Counted 100, Neutrophils % (Manual) 79H, Lymphocytes % (Manual) 13L, Monocytes % (Manual) 8, Eosinophils % (Manual) 0, Basophils % (Manual) 0, Band Neutrophils 0, Nucleated Red Blood Cells 6, Platelet Estimate DecreasedL, Platelet Morphology Normal, Hypochromasia 1+, Anisocytosis 2+, Macrocytosis 1+, Target Cells 1+, Prothrombin Time 16.9H, Prothromb Time International Ratio 1.6H, Activated Partial Thromboplast Time 31, Sodium Level 142, Potassium Level 3.7, Chloride Level 108H, Carbon Dioxide Level 20L, Anion Gap 14, Blood Urea Nitrogen 21H, Creatinine 1.5H, Estimat Glomerular Filtration Rate 58.4, Glucose Level 148H, Uric Acid 10.0H, Calcium Level 8.4L, Phosphorus Level 2.8, Magnesium Level 2.0, Total Bilirubin 3.4H, Direct Bilirubin 2.8H, Aspartate Amino Transf (AST/SGOT) 180H, Alanine Aminotransferase (ALT/SGPT) 58, Alkaline Phosphatase 1001H, Ammonia 38H, C-Reactive Protein, Quantitative 8.8H, Total Protein 5.8L, Albumin 2.1L, Globulin 3.7, Albumin/Globulin Ratio 0.6L Height (Feet): 6 Height (Inches): 0.00 Weight (Pounds): 205 General Appearance: no apparent distress, other - Poorly responsive Cardiovascular: tachycardia Respiratory/Chest: decreased breath sounds Abdomen: distended Dean Brink MD Sep 01, 2020 13:41
--- NOTE | 2020-09-01 13:43 | General Progress Note ---
Subjective ROS Limited/Unobtainable: Yes Allergies: Coded Allergies: No Known Allergies (Unverified , 01/05/17) Objective Last 24 Hour Vital Signs Date Time Temp Pulse Resp B/P (MAP) Pulse Ox O2 Delivery O2 Flow Rate FiO2 09/01/20 08:00 96.5 124 20 151/100 (117) 95 09/01/20 08:00 120 09/01/20 04:00 96.5 118 18 156/121 (133) 96 09/01/20 04:00 116 09/01/20 00:00 97.6 107 18 150/103 (119) 99 09/01/20 00:00 115 08/31/20 21:00 Room Air 08/31/20 20:00 105 08/31/20 20:00 97.6 108 20 151/94 (113) 98 08/31/20 16:00 97.4 110 20 133/90 (104) 95 08/31/20 16:00 111 Intake and Output 08/31/20 09/01/20 19:00 07:00 Output Total 350 ml Balance -350 ml Output Urine Total 350 ml Laboratory Tests 09/01/20 06:34: White Blood Count 6.9, Red Blood Count 3.49L, Hemoglobin 9.4L, Hematocrit 29.4L, Mean Corpuscular Volume 84, Mean Corpuscular Hemoglobin 27.0, Mean Corpuscular Hemoglobin Concent 32.1, Red Cell Distribution Width 24.3H, Platelet Count 80L, Mean Platelet Volume 10.2H, Neutrophils (%) (Auto) , Lymphocytes (%) (Auto) , Monocytes (%) (Auto) , Eosinophils (%) (Auto) , Basophils (%) (Auto) , Differential Total Cells Counted 100, Neutrophils % (Manual) 79H, Lymphocytes % (Manual) 13L, Monocytes % (Manual) 8, Eosinophils % (Manual) 0, Basophils % (Manual) 0, Band Neutrophils 0, Nucleated Red Blood Cells 6, Platelet Estimate DecreasedL, Platelet Morphology Normal, Hypochromasia 1+, Anisocytosis 2+, Macrocytosis 1+, Target Cells 1+, Prothrombin Time 16.9H, Prothromb Time International Ratio 1.6H, Activated Partial Thromboplast Time 31, Sodium Level 142, Potassium Level 3.7, Chloride Level 108H, Carbon Dioxide Level 20L, Anion Gap 14, Blood Urea Nitrogen 21H, Creatinine 1.5H, Estimat Glomerular Filtration Rate 58.4, Glucose Level 148H, Uric Acid 10.0H, Calcium Level 8.4L, Phosphorus Level 2.8, Magnesium Level 2.0, Total Bilirubin 3.4H, Direct Bilirubin 2.8H, Aspartate Amino Transf (AST/SGOT) 180H, Alanine Aminotransferase (ALT/SGPT) 58, Alkaline Phosphatase 1001H, Ammonia 38H, C-Reactive Protein, Quantitative 8.8H, Total Protein 5.8L, Albumin 2.1L, Globulin 3.7, Albumin/Globulin Ratio 0.6L Height (Feet): 6 Height (Inches): 0.00 Weight (Pounds): 205 Assessment/Plan Problem List: (1) Encephalopathy ICD Codes: G93.40 - Encephalopathy, unspecified SNOMED: 87363745 (2) Liver failure ICD Codes: K72.90 - Hepatic failure, unspecified without coma SNOMED: 30410316 Qualifiers: Qualified Codes: K72.90 - Hepatic failure, unspecified without coma (3) Prostate cancer ICD Codes: C61 - Malignant neoplasm of prostate SNOMED: 478561359 (4) Bony metastasis ICD Codes: C79.51 - Secondary malignant neoplasm of bone SNOMED: 12335522 (5) Anemia ICD Codes: D64.9 - Anemia, unspecified SNOMED: [id number] Qualifiers: Qualified Codes: D64.9 - Anemia, unspecified Status: progressing Assessment/Plan: more lethargic than usual transfer to icu afebrile poor prognosis liver failure check h/h elevated lft.awaiting response from jenaro benoit re etiology anemia arf Gabrielle Ortiz MD Sep 01, 2020 13:43
--- NOTE | 2020-09-01 13:57 | NUR ---
CASE MANAGEMENT:REVIEW 09/01/20 SI: HEPATIC ENCEPHALOPATHY METASTATIC PROSTATE CANCER. ACUTE HYPOXIA 96.5 124 20 151/100 95% ON RA H/H-9.4/29.4 PLT-80 BUN+21 CR+1.5 IS: IV ROCEPHIN Q24 IVF@100/HR FOLATE PO QD ~ REFUSED LACTULOSE PO BID ~ REFUSED ALLOPURINOL PO Q12 ~ REFUSED : TELEMETRY ---> ICU DCP: FROM HOME PLAN: TRANSFER TO ICU ABG ORDERED
--- NOTE | 2020-09-01 14:00 | NUR ---
NURSE NOTES: Dr Waller and DR Brink called re results of ABG,awaiting return of call.
[2020-09-01] MEDS: D5NS 1,000 ML IV SCH (14:21)
--- NOTE | 2020-09-01 14:30 | NUR ---
NURSE NOTES: Pt resting quietly in bed ,noted no resp distress,pulled up and repositioned.
--- NOTE | 2020-09-01 14:40 | Neurology Progress Note ---
Interim History Interim History ROS Limited/Unobtainable: Yes Events: pt transferred to ICU Objective Physical Exam Last Vital Signs Date Time Temp Pulse Resp B/P (MAP) Pulse Ox O2 Delivery O2 Flow Rate FiO2 09/01/20 14:00 150 30 136/93 (107) 09/01/20 12:00 97.9 09/01/20 10:11 99 08/31/20 21:00 Room Air Laboratory Tests Test 09/01/20 06:34 09/01/20 14:18 White Blood Count 6.9 K/UL (4.8-10.8) Red Blood Count 3.49 M/UL (4.70-6.10) L Hemoglobin 9.4 G/DL (14.2-18.0) L Hematocrit 29.4 % (42.0-52.0) L Mean Corpuscular Volume 84 FL (80-99) Mean Corpuscular Hemoglobin 27.0 PG (27.0-31.0) Mean Corpuscular Hemoglobin Concent 32.1 G/DL (32.0-36.0) Red Cell Distribution Width 24.3 % (11.6-14.8) H Platelet Count 80 K/UL (150-450) L Mean Platelet Volume 10.2 FL (6.5-10.1) H Neutrophils (%) (Auto) % (45.0-75.0) Lymphocytes (%) (Auto) % (20.0-45.0) Monocytes (%) (Auto) % (1.0-10.0) Eosinophils (%) (Auto) % (0.0-3.0) Basophils (%) (Auto) % (0.0-2.0) Differential Total Cells Counted 100 Neutrophils % (Manual) 79 % (45-75) H Lymphocytes % (Manual) 13 % (20-45) L Monocytes % (Manual) 8 % (1-10) Eosinophils % (Manual) 0 % (0-3) Basophils % (Manual) 0 % (0-2) Band Neutrophils 0 % (0-8) Nucleated Red Blood Cells 6 /100 WBC Platelet Estimate Decreased L Platelet Morphology Normal Hypochromasia 1+ Anisocytosis 2+ Macrocytosis 1+ Target Cells 1+ Prothrombin Time 16.9 SEC (9.30-11.50) H Prothromb Time International Ratio 1.6 (0.9-1.1) H Activated Partial Thromboplast Time 31 SEC (23-33) Sodium Level 142 MMOL/L (136-145) Potassium Level 3.7 MMOL/L (3.5-5.1) Chloride Level 108 MMOL/L (98-107) H Carbon Dioxide Level 20 MMOL/L (21-32) L Anion Gap 14 mmol/L (5-15) Blood Urea Nitrogen 21 mg/dL (7-18) H Creatinine 1.5 MG/DL (0.55-1.30) H Estimat Glomerular Filtration Rate 58.4 mL/min (>60) Glucose Level 148 MG/DL (74-106) H Uric Acid 10.0 MG/DL (2.6-7.2) H Calcium Level 8.4 MG/DL (8.5-10.1) L Phosphorus Level 2.8 MG/DL (2.5-4.9) Magnesium Level 2.0 MG/DL (1.8-2.4) Total Bilirubin 3.4 MG/DL (0.2-1.0) H Direct Bilirubin 2.8 MG/DL (0.0-0.3) H Aspartate Amino Transf (AST/SGOT) 180 U/L (15-37) H Alanine Aminotransferase (ALT/SGPT) 58 U/L (12-78) Alkaline Phosphatase 1001 U/L (46-116) H Ammonia 38 umol/L (11-32) H C-Reactive Protein, Quantitative 8.8 mg/dL (0.00-0.90) H Total Protein 5.8 G/DL (6.4-8.2) L Albumin 2.1 G/DL (3.4-5.0) L Globulin 3.7 g/dL Albumin/Globulin Ratio 0.6 (1.0-2.7) L Arterial Blood pH 7.382 (7.350-7.450) Arterial Blood Partial Pressure CO2 20.0 mmHg (35.0-45.0) *L Arterial Blood Partial Pressure O2 96.9 mmHg (75.0-100.0) Arterial Blood HCO3 11.6 mmol/L (22.0-26.0) *L Arterial Blood Oxygen Saturation 96.4 % (95-100) Arterial Blood Base Excess -11.6 (-2-2) *L Nicholas Test Positive Neurologic Exam Objective eview of Systems unable to assess Physical Exam General: pt is lethargic unresponsive Nuero Exam: Comatose, perrla bilat to light ocular cephalic response absent corneal gg No facial droop. Coordination: not able to test, No involuntary movements Bilat upper and lower extremities unable to follow commands not tested Gait not tested Impression/Recommendations Status: progressing Diagnostic Impression Assessment and Recs 1. 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 Solorzano --> will call daughter for more info --> Will order steroids and treat for edema --> there is another orbital lesion which further evaluation with a orbit CT as recommended. Will order 2. Lethargy --> hold sedatives 3. Hepatic Encephalopathy likely due to liver dysfunction --> lactulose/rifaximin per gi 4. Failure to Thrive --> due to cancer 5. Metastatic prostate cancer --> has been getting infusion at [facility] 6 Anemia of chronic disease 7. Liver failure Thank you for allowing us to participate in patient's care, patient was seen with Dr. Tra Solorzano and plan of care was discussed he Lea Garduno NP Sep 01, 2020 14:40
[2020-09-01] MEDS ORDERED: Omnipaque-300 100ml vial INJ PRN (15:00)
[2020-09-01] MEDS ORDERED: dexAMETHasone 10mg/ml Inj IV SCH (15:00)
--- NOTE | 2020-09-01 15:00 | NUR ---
NURSE NOTES: NGT insertion done to RT nare x 1 attempt,checked placement per auscultation,in placed.KUB ordered to confirm placement.
[2020-09-01] MEDS: cefTRIAXone 1 GM in D5W 55 ML IVPB SCH (16:20)
--- NOTE | 2020-09-01 17:07 | Diagnostic Imaging Report ---
Indication: Post nasogastric tube placement Technique: Supine view of the abdomen Comparison: 08/27/2020 Findings: Interim placement of a nasogastric tube, tip which projects at the level gastric body. There is opacity bowel gas everywhere but the left side of the abdomen. Previous CT scan indicates that this is due to massive hepatomegaly from hepatic metastatic disease. The bones are diffusely osteosclerotic Impression: Satisfactory nasogastric intubation Diffuse osteosclerosis; per prior studies this is due to metastatic prostatic carcinoma Hepatomegaly
--- NOTE | 2020-09-01 17:30 | NUR ---
NURSE NOTES: pt' daughter Gi,called and updated re pt's status and plans of care.
--- NOTE | 2020-09-01 18:00 | NUR ---
NURSE NOTES: NGT in placed per KUB results,Glucerna feeding atrted at 25 ml/hr with goal of 55 ml/hr.
--- NOTE | 2020-09-01 19:00 | NUR ---
NURSE NOTES: Received patient from MARIANA Yates. patient is in bed, difficult to arouse. sinus tachycardia on the monitor (HR 130). NGT in place and running glucerna 1.2 @25ml/hr, goal of 55ml/hr. hernández in place and draining well to gravity. ALAN PICC in place, dressing clean dry and intact. DSNS @100ml/hr. bed to lowest position and locked. call light within easy reach. side rails up x2. will continue plan of care.
--- NOTE | 2020-09-01 19:25 | NUR ---
NURSE HAND-OFF REPORT: Latest Vital Signs: Temperature 98.0 , Pulse 138 , B/P 142 /97 , Respiratory Rate 29 , O2 SAT 95 , Room Air, O2 Flow Rate . Vital Sign Comment: unstable EKG Rhythm: Sinus Tachycardia Rhythm change?: N MD Notified?: -N Dr Shai laureano MD Response: Latest Omalley Fall Score: 50 Fall Risk: High Risk Safety Measures: Call light Within Reach, Bed Alarm Zone 2, Side Rails Side Rails x3, Bed position Low and Locked. Fall Precautions: Yellow Socks Yellow Gown Door Sign Patient Fall Education Report given to Kaushik Angela RN..
--- NOTE | 2020-09-01 20:36 | NUR ---
NURSE NOTES: Noted patient ABG PH 7.382, PCO2 20, PO2 96.9, HCO3 11.6. contacted and left a message to Dr. Waller. waiting for call back.
[2020-09-01] MEDS: Dyna-Hex 2% Top Sol 2oz TOPIC SCH (20:52)
--- NOTE | 2020-09-01 21:36 | NUR ---
NURSE NOTES: Dr. Waller called back regarding my message of ABG results. Dr. Waller aware and acknowledged that he has seen ABG results this morning and is okay with it. no new orders.
--- NOTE | 2020-09-01 22:45 | NUR ---
NURSE NOTES: contacted and left a message to Dr. Ellis regarding patient BP 82/51. wait for call back.
--- NOTE | 2020-09-01 22:50 | NUR ---
NURSE NOTES: Called to Dr Waller that pt breathing was agonal, relayed stat ABG result to md and suggested to Dr Waller if pt needs intubation. Dr waller verbalized that no need for intubation, but instead to call [employer] Dr Brink for a BIcarb drip. spoke to the assigned RN Kaushik ,with Dr Waller order.
--- NOTE | 2020-09-01 22:55 | NUR ---
NURSE NOTES: Patient ABG PH 6.981, PCO2 18.2, PO2 241.4, HCO3 4.2. charge nurse, Anne, contacted Dr. Waller regarding ABG results and intubation. Dr. Waller aware of ABG and said to contact Dr. Brink to start Bicarb drip.
[2020-09-01] MEDS ORDERED: Sodium Bicarbonate 100 ML in D5NS 1,000 ML IV SCH (23:00)
--- NOTE | 2020-09-01 23:00 | NUR ---
NURSE NOTES: Carried out Dr. Waller's orders and contacted Dr. Brink. relayed ABG results to Dr. Brink and ordered bicarb drip 100ml to add to patient's fluids, D5NS. will carry out orders.
--- NOTE | 2020-09-01 23:20 | NUR ---
NURSE NOTES: ED doctor was contacted to try to assess patient and maybe intubate. ED doctor did not wish to proceed and to follow Dr. Waller's order to not intubate.
--- NOTE | 2020-09-01 23:50 | NUR ---
NURSE NOTES: [employer] changed order of fluids from D5NS to D5W as bicarb cannot be mixed with NS.
[2020-09-02] VITALS (38 sets, daily range): BP systolic 60–146; BP diastolic 37–103
--- NOTE | 2020-09-02 00:14 | Consultation ---
DATE OF CONSULTATION: 09/01/2020 CARDIOLOGY CONSULTATION CONSULTING PHYSICIAN: David Ellis M.D. REFERRING PHYSICIAN: Gabrielle Ortiz M.D. REASON FOR CONSULTATION: Accelerated hypertension and tachycardia. HISTORY OF PRESENT ILLNESS: The patient is an unfortunate 59-year-old man with a history of metastatic prostate cancer, was brought in by paramedics for weakness. The patient was supposed to get a biopsy; however, they could not get the patient to facility because of weakness. The patient was negative for COVID recently. The patient apparently has been getting infusions at [facility] per the patient's daughter. The patient's chest x-ray showed diffuse sclerotic bones as well as right lung masses. The patient's abdominal x-ray also showed hepatomegaly and abdominal ultrasound showed , suggestive of masses throughout as well as a large spleen. Abdominal CT was suggestive of metastatic prostate cancer and and severe hepatic enlargement. The patient was admitted. The patient was noted to be tachycardic, heart rate of 130s, and blood pressure of 151/100. However, the patient is unresponsive and is not able to take any p.o. pills. REVIEW OF SYSTEMS: Cannot be obtained because the patient currently is unresponsive. PAST MEDICAL HISTORY: As mentioned above. FAMILY HISTORY: Noncontributory. SOCIAL HISTORY: The patient home. PHYSICAL EXAMINATION: VITAL SIGNS: Blood pressure of 151/100, pulse is 124, respirations 14, temperature 96.5. HEAD AND NECK: No JVD. LUNGS: Decreased breath sounds. CARDIOVASCULAR: Tachycardic. S1 and S2 with no gallop. ABDOMEN: Distended with ascites. EXTREMITIES: Anasarca, 2+ edema of the legs and arms. LABORATORY AND DIAGNOSTIC DATA: His labs show white count of 6.9, hemoglobin 9.5, hematocrit 29.4, and platelet count is 80. Sodium is 142, potassium 3.7, BUN of 21, creatinine of 1.5, and glucose of 148. His total bilirubin is 3.4, 2.8, alkaline phosphatase is 1000, and ammonia level is 38. ASSESSMENT AND PLAN: 1. Sinus tachycardia, compensatory due to the patient's metastatic prostate cancer and anemia and hepatic failure. The patient is also unresponsive at this time. I will transfer the patient to intensive care unit as the patient has high risk of aspiration and may need to be intubated. He is completely altered. 2. Altered mental status, could be due to hepatic encephalopathy. The ammonia level is 38, total bilirubin of 3.4. The patient is followed up by Dr. Zelaya. 3. Metastatic prostate cancer, followed by GI and Urology. NG tube placement is pending. Dr. Schmid is also following. PSA of 1522, has been getting at [facility]. Liver biopsy was recently done. 4. Thrombocytopenia, likely due to myelosuppression due to cancer. Had a CT to rule out hepatic metastatic masses, severe hepatic enlargement renal failure. Thank you very much for allowing me to participate in the care of this patient. Please do not hesitate to contact me for any questions regarding my evaluation. The case was discussed with the patient's nurse as well as ICU nurse and charge nurse. David Ellis M.D. DR: ELYSIA JOB#: [id number] CC:
[2020-09-02] MEDS ORDERED: Sodium Bicarbonate 100 ML in D5W 1000ml 1,000 ML IV SCH (00:30)
--- NOTE | 2020-09-02 01:05 | NUR ---
NURSE NOTES: Noted patient blood pressure in the 70's. contacted Dr. Waller regarding patient condition. Dr. Waller ordered to start levophed drip. will carry out orders.
[2020-09-02] MEDS: Norepinephrine 4mg/NS Premix 250 ML IV SCH ×4 (01:11→07:30)
--- NOTE | 2020-09-02 01:29 | NUR ---
NURSE NOTES: called and spoke with daughter, Gi Heath. updated daughter of patient's condition. Daughter still wishes to have patient full code
[2020-09-02] MEDS: Phenylephrine 50 MG in D5W 245 ML IV SCH ×3 (04:00→08:33)
[2020-09-02] MEDS ORDERED: Vasopressin 100 UNITS in NS 95 ML IV SCH (04:00)
--- NOTE | 2020-09-02 04:00 | NUR ---
NURSE NOTES: noted patient BP 79/57 despite max levophed. contacted Dr. Ellis and ordered Vasopressin and phenylephrine. will carry out orders.
[2020-09-02 04:35] LABS: HEMATOCRIT 31.9 % (42.0-52.0); HEMOGLOBIN 9.1 G/DL (14.2-18.0); MEAN CORPUSCULAR VOLUME 96 FL (80-99); PLATELET COUNT 65 K/UL (150-450); RED BLOOD COUNT 3.33 M/UL (4.70-6.10); RED CELL DISTRIBUTION WIDTH 26.1 % (11.6-14.8); WHITE BLOOD COUNT 8.6 K/UL (4.8-10.8)
[2020-09-02 05:20] LABS: CREATINE KINASE 1062 U/L (26-308); PHOSPHORUS 9.4 MG/DL (2.5-4.9)
[2020-09-02 05:37] LABS: ALANINE AMINOTRANSFERASE 652 U/L (12-78); ALBUMIN 1.8 G/DL (3.4-5.0); ALBUMIN/GLOBULIN RATIO 0.5 (1.0-2.7); ALKALINE PHOSPHATASE 980 U/L (46-116); ASPARTATE AMINO TRANSFERASE 1402 U/L (15-37); BILIRUBIN,TOTAL 3.7 MG/DL (0.2-1.0); BLOOD UREA NITROGEN 29 mg/dL (7-18); CALCIUM 9.1 MG/DL (8.5-10.1); CHLORIDE 110 MMOL/L (98-107); CREATININE 2.8 MG/DL (0.55-1.30); SODIUM 141 MMOL/L (136-145)
[2020-09-02 05:47] LABS: CARBON DIOXIDE < 5 MMOL/L (21-32)
[2020-09-02 05:49] LABS: BILIRUBIN,DIRECT 3.1 MG/DL (0.0-0.3)
--- NOTE | 2020-09-02 05:53 | NUR ---
NURSE NOTES: Noted patient potassium 7 and CO2 <5. contacted and left a message to Dr. Brink.
[2020-09-02] MEDS ORDERED: Insulin Human Regular 100units/ml 3ml IV SCH (06:15)
[2020-09-02] MEDS ORDERED: Hydrocortisone 100mg Inj IV SCH ×2 (06:15→14:00)
[2020-09-02] MEDS ORDERED: Sodium Bicarbonate 50ml Carp IV SCH ×2 (06:15→09:30)
[2020-09-02] MEDS ORDERED: Sodium Polystyrene Sulfonate 15gm Powder NG SCH (06:15)
--- NOTE | 2020-09-02 06:36 | NUR ---
CASE MANAGEMENT:REVIEW 09/02/20 SI: PROSTATE CANCER W/BONY METS ENCEPHALOPATHY. LIVER FAILURE 98.8 111 19 98/71 100% ON RA PLT-65 K+7.0 BUN+29 CR+2.8 LACTIC ACID+19.30 TCK+1062 TROP(+) 0.082 PSA+1522.57 IS: IV INSULIN X1 IV D50 X1 IV NAHCO3 X1 KAYEXALATE NG X1 IV PEPCID X1 IV SOLUCORTEF X1 THEN Q8 IV VASOPRESSIN IV DECADRON Q6 IV ROCEPHIN Q24 : ICU STATUS DCP: FROM HOME PLAN: SUPPORTIVE CARE
--- NOTE | 2020-09-02 06:59 | Hematology/Onc Progress Note ---
Assessment/Plan Assessment/Plan Assessment and Recs # Metastatic prostate cancer - psa 1522 --> MRI BRAIN Evidence of extensive subdural metastatic disease, involving both convexities and the bilateral posterior cranial fossa. Large extra-axial masses involving the anterior middle fossae bilaterally, righ greater than left, with extensive subjacent parenchymal edema Extensive meningeal enhancement, presumably related to metastatic disease --> has been getting infusion at [facility] --> liver biopsy was recently done --> PSA remains markedly elevated --> continue outpatient onco care --> uro eval # Anemia of chronic disease due to underlying chronic medical issues, Multifactorial --> Anemia w/u has been ordered --> No evidence of hemolysis is noted, peripheral smear has been reviewed. --> Hgb goal >7. Transfuse prn. --> Epogen or iron at this time is not particularly indicated --> If unable to determine source, will need bone marrow biopsy --> hgb 8.2-->10 # Thrombocytopenia likely meylosuppresive due to cancer --> CT Innumerable hepatic metastatic masses with severe hepatic enlargement. --> plt 117 # Encephalopathy likely due to liver dysfucntion --> lactulose/rifaxamin per gi # Liver failure likely due to cancer --> ptt/inr high # Ascites --> para as needed --> pain management # Bony metastasis # Renal insufficiency # Elevated INR Time of note does not necessarily correspond to the time the patient was seen. Appreciate consultation greatly. Subjective Allergies: Coded Allergies: No Known Allergies (Unverified , 01/05/17) All Systems: reviewed and negative except above Subjective 08/30 very agitated, may need picc line, have dw rn 08/31 labs are pending from am, no bleeding, meds noted, no night sweats 09/01 labs reviewed, extremely confused, seen by neuro 09/02 confused, in icu, daughter bedside wants to be full code Objective Objective Current Medications Medications (Trade) Dose Ordered Sig/David Route PRN Reason Start Time Stop Time Status Last Admin Dose Admin Allopurinol (allopurinoL) 300 mg Q12HR ORAL 08/29/20 21:00 09/28/20 20:59 09/01/20 22:26 Ceftriaxone Sodium 1 gm/ Dextrose 55 ml @ 110 mls/hr Q24H IVPB 08/28/20 16:00 09/04/20 15:59 09/01/20 16:20 Chlorhexidine Gluconate (Cydney-Hex 2%) 1 applic DAILY@2000 TOPIC 08/30/20 20:00 11/28/20 19:59 09/01/20 20:52 Dexamethasone Sodium Phosphate (Decadron 4mg/ml vial) 4 mg Q6HR IVP 09/02/20 00:00 09/10/20 18:01 09/02/20 05:24 Dextrose (Dextrose 50%) 50 ml STAT IV 09/02/20 06:15 09/02/20 08:00 Famotidine (Pepcid I.v.) 40 mg ONCE IVP 09/02/20 06:15 09/02/20 08:00 09/02/20 06:47 Folic Acid (Folate) 5 mg DAILY ORAL 08/29/20 14:30 09/28/20 14:29 08/31/20 11:19 Hydralazine HCl (Apresoline) 10 mg Q2H PRN IV sbp>170 09/01/20 10:00 11/30/20 09:59 Hydrocortisone (Solu-CORTEF) 100 mg EVERY 8 HOURS IV 09/02/20 14:00 12/01/20 13:59 Hydrocortisone (Solu-CORTEF) 100 mg ONCE IV 09/02/20 06:15 09/02/20 07:15 09/02/20 06:48 Insulin Human Regular (NovoLIN R) 10 units ONCE IV 09/02/20 06:15 09/02/20 08:00 Iohexol (OMNIPAQUE-300 100ml) 100 ml ONCE PRN INJ Radiology use only 09/01/20 15:00 09/02/20 23:59 Lactulose (Cephulac) 20 gm BID ORAL 08/29/20 14:30 09/28/20 14:29 09/01/20 18:32 Norepinephrine Bitartrate 250 ml @ 0 mls/hr Q24H IV 09/02/20 01:00 09/05/20 01:00 09/02/20 05:08 Ondansetron HCl (Zofran) 4 mg Q4H PRN IVP Nausea & Vomiting 08/29/20 09:15 09/28/20 09:14 08/29/20 12:51 Phenylephrine HCl 50 mg/Dextrose 250 ml @ 0 mls/hr Q24H IV 09/02/20 04:00 09/05/20 03:57 Sodium Bicarbonate 100 ml/Dextrose 1,100 ml @ 100 mls/hr Q11H IV 09/02/20 00:30 10/02/20 00:29 09/01/20 23:50 Sodium Polystyrene Sulfonate (Kayexalate) 45 gm ONCE NG 09/02/20 06:15 09/02/20 07:15 09/02/20 06:48 Sodium Bicarbonate (Sodium Bicarbonate) 100 ml ONCE IV 09/02/20 06:15 09/02/20 07:15 09/02/20 06:46 Vasopressin 100 units/Sodium Chloride 100 ml @ 0 mls/hr Q24H IV 09/02/20 04:00 09/05/20 03:57 09/02/20 04:26 Last 24 Hour Vital Signs Date Time Temp Pulse Resp B/P (MAP) Pulse Ox O2 Delivery O2 Flow Rate FiO2 09/02/20 05:08 98/71 09/02/20 04:45 111 19 98/71 (80) 100 09/02/20 04:30 112 19 86/63 (71) 100 09/02/20 04:15 110 19 90/58 (69) 100 09/02/20 04:00 109 09/02/20 04:00 98.8 109 19 82/63 (69) 100 09/02/20 03:15 117 19 116/102 (107) 09/02/20 03:08 118/96 09/02/20 03:00 118 17 113/89 (97) 09/02/20 02:45 118 17 108/84 (92) 09/02/20 02:30 118 17 107/74 (85) 09/02/20 02:15 118 17 96/39 (58) 09/02/20 02:00 120 18 68/53 (58) 09/02/20 01:30 121 18 118/96 (103) 09/02/20 01:15 111 18 70/39 (49) 09/02/20 01:11 80/54 09/02/20 01:00 112 19 80/54 (63) 09/02/20 00:30 114 20 91/78 (82) 09/02/20 00:00 116 21 84/69 (74) 09/02/20 00:00 115 09/01/20 23:30 117 22 99/70 (80) 09/01/20 23:00 120 21 92/70 (77) 09/01/20 22:00 124 22 98/72 (81) 09/01/20 21:00 130 27 141/119 (126) 09/01/20 20:00 136 09/01/20 20:00 133 27 134/99 (111) 09/01/20 19:00 136 30 154/95 (114) 95 09/01/20 19:00 98.2 136 30 154/95 (114) 95 09/01/20 18:00 138 29 142/97 (112) 95 09/01/20 17:00 140 31 146/101 (116) 100 09/01/20 16:00 98.0 144 30 129/100 (110) 09/01/20 16:00 140 09/01/20 15:00 149 27 123/90 (101) 68 09/01/20 14:00 150 30 136/93 (107) 09/01/20 13:00 151 28 137/98 (111) 09/01/20 12:00 97.9 139 23 153/99 (117) 09/01/20 12:00 142 09/01/20 11:00 141 28 138/100 (113) 09/01/20 10:11 133 24 138/108 (118) 99 09/01/20 08:00 96.5 124 20 151/100 (117) 95 09/01/20 08:00 120 09/01/20 04:00 96.5 118 18 156/121 (133) 96 09/01/20 04:00 116 09/01/20 00:00 97.6 107 18 150/103 (119) 99 09/01/20 00:00 115 08/31/20 21:00 Room Air 08/31/20 20:00 105 08/31/20 20:00 97.6 108 20 151/94 (113) 98 08/31/20 16:00 97.4 110 20 133/90 (104) 95 08/31/20 16:00 111 08/31/20 12:00 100 08/31/20 12:00 97.0 99 18 127/85 (99) 94 08/31/20 09:00 Room Air 08/31/20 08:00 84 08/31/20 08:00 97.2 84 20 143/74 (97) 94 Intake and Output 09/01/20 09/02/20 19:00 07:00 Intake Total 960 ml 505.935 ml Output Total 125 ml 50 ml Balance 835 ml 455.935 ml Free Water 150 ml 60 ml IV Total 700 ml 370.935 ml Tube Feeding 50 ml 75 ml Other 60 ml Output Urine Total 125 ml 50 ml Labs Test 08/30/20 08:20 08/30/20 17:40 08/31/20 07:00 09/01/20 06:34 White Blood Count 5.1 K/UL (4.8-10.8) 6.9 K/UL (4.8-10.8) Red Blood Count 3.85 M/UL (4.70-6.10) 3.49 M/UL (4.70-6.10) Hemoglobin 10.3 G/DL (14.2-18.0) 9.4 G/DL (14.2-18.0) Hematocrit 33.0 % (42.0-52.0) 29.4 % (42.0-52.0) Mean Corpuscular Volume 86 FL (80-99) 84 FL (80-99) Mean Corpuscular Hemoglobin 26.7 PG (27.0-31.0) 27.0 PG (27.0-31.0) Mean Corpuscular Hemoglobin Concent 31.1 G/DL (32.0-36.0) 32.1 G/DL (32.0-36.0) Red Cell Distribution Width 24.1 % (11.6-14.8) 24.3 % (11.6-14.8) Platelet Count 91 K/UL (150-450) 80 K/UL (150-450) Mean Platelet Volume 8.0 FL (6.5-10.1) 10.2 FL (6.5-10.1) Neutrophils (%) (Auto) % (45.0-75.0) % (45.0-75.0) Lymphocytes (%) (Auto) % (20.0-45.0) % (20.0-45.0) Monocytes (%) (Auto) % (1.0-10.0) % (1.0-10.0) Eosinophils (%) (Auto) % (0.0-3.0) % (0.0-3.0) Basophils (%) (Auto) % (0.0-2.0) % (0.0-2.0) Differential Total Cells Counted 100 100 Neutrophils % (Manual) 85 % (45-75) 79 % (45-75) Lymphocytes % (Manual) 9 % (20-45) 13 % (20-45) Monocytes % (Manual) 4 % (1-10) 8 % (1-10) Eosinophils % (Manual) 1 % (0-3) 0 % (0-3) Basophils % (Manual) 0 % (0-2) 0 % (0-2) Band Neutrophils 1 % (0-8) 0 % (0-8) Platelet Estimate Decreased Decreased Platelet Morphology Normal Normal Polychromasia 1+ Hypochromasia 1+ 1+ Anisocytosis 3+ 2+ Target Cells Occasional 1+ Sodium Level 141 MMOL/L (136-145) 142 MMOL/L (136-145) Potassium Level 3.8 MMOL/L (3.5-5.1) 3.7 MMOL/L (3.5-5.1) Chloride Level 106 MMOL/L (98-107) 108 MMOL/L (98-107) Carbon Dioxide Level 21 MMOL/L (21-32) 20 MMOL/L (21-32) Anion Gap 14 mmol/L (5-15) 14 mmol/L (5-15) Blood Urea Nitrogen 21 mg/dL (7-18) 21 mg/dL (7-18) Creatinine 1.4 MG/DL (0.55-1.30) 1.5 MG/DL (0.55-1.30) Estimat Glomerular Filtration Rate > 60 mL/min (>60) 58.4 mL/min (>60) Glucose Level 94 MG/DL (74-106) 148 MG/DL (74-106) Uric Acid 13.0 MG/DL (2.6-7.2) 10.0 MG/DL (2.6-7.2) Calcium Level 9.1 MG/DL (8.5-10.1) 8.4 MG/DL (8.5-10.1) Phosphorus Level 3.1 MG/DL (2.5-4.9) 2.8 MG/DL (2.5-4.9) Magnesium Level 2.1 MG/DL (1.8-2.4) 2.0 MG/DL (1.8-2.4) Total Bilirubin 3.8 MG/DL (0.2-1.0) 3.4 MG/DL (0.2-1.0) Direct Bilirubin 3.1 MG/DL (0.0-0.3) 2.8 MG/DL (0.0-0.3) Gamma Glutamyl Transpeptidase 1457 U/L (5-85) Aspartate Amino Transf (AST/SGOT) 157 U/L (15-37) 180 U/L (15-37) Alanine Aminotransferase (ALT/SGPT) 53 U/L (12-78) 58 U/L (12-78) Alkaline Phosphatase 1064 U/L (46-116) 1001 U/L (46-116) Total Protein 6.0 G/DL (6.4-8.2) 5.8 G/DL (6.4-8.2) Albumin 2.4 G/DL (3.4-5.0) 2.1 G/DL (3.4-5.0) Globulin 3.6 g/dL 3.7 g/dL Albumin/Globulin Ratio 0.7 (1.0-2.7) 0.6 (1.0-2.7) Ammonia 21 umol/L (11-32) 10 umol/L (11-32) 38 umol/L (11-32) Nucleated Red Blood Cells 6 /100 WBC Macrocytosis 1+ Prothrombin Time 16.9 SEC (9.30-11.50) Prothromb Time International Ratio 1.6 (0.9-1.1) Activated Partial Thromboplast Time 31 SEC (23-33) C-Reactive Protein, Quantitative 8.8 mg/dL (0.00-0.90) Test 09/01/20 14:18 09/01/20 22:48 09/02/20 03:10 09/02/20 06:42 Arterial Blood pH 7.382 (7.350-7.450) 6.981 (7.350-7.450) 6.751 (7.350-7.450) Arterial Blood Partial Pressure CO2 20.0 mmHg (35.0-45.0) 18.2 mmHg (35.0-45.0) 32.1 mmHg (35.0-45.0) Arterial Blood Partial Pressure O2 96.9 mmHg (75.0-100.0) 241.2 mmHg (75.0-100.0) 105.2 mmHg (75.0-100.0) Arterial Blood HCO3 11.6 mmol/L (22.0-26.0) 4.2 mmol/L (22.0-26.0) 4.4 mmol/L (22.0-26.0) Arterial Blood Oxygen Saturation 96.4 % (95-100) 98.6 % (95-100) 91.1 % (95-100) Arterial Blood Base Excess -11.6 (-2-2) -25.7 (-2-2) -29.7 (-2-2) Nicholas Test Positive Positive Positive White Blood Count 8.6 K/UL (4.8-10.8) Red Blood Count 3.33 M/UL (4.70-6.10) Hemoglobin 9.1 G/DL (14.2-18.0) Hematocrit 31.9 % (42.0-52.0) Mean Corpuscular Volume 96 FL (80-99) Mean Corpuscular Hemoglobin 27.2 PG (27.0-31.0) Mean Corpuscular Hemoglobin Concent 28.5 G/DL (32.0-36.0) Red Cell Distribution Width 26.1 % (11.6-14.8) Platelet Count 65 K/UL (150-450) Mean Platelet Volume 9.5 FL (6.5-10.1) Neutrophils (%) (Auto) % (45.0-75.0) Lymphocytes (%) (Auto) % (20.0-45.0) Monocytes (%) (Auto) % (1.0-10.0) Eosinophils (%) (Auto) % (0.0-3.0) Basophils (%) (Auto) % (0.0-2.0) Sodium Level 141 MMOL/L (136-145) Potassium Level 7.0 MMOL/L (3.5-5.1) Chloride Level 110 MMOL/L (98-107) Carbon Dioxide Level < 5 MMOL/L (21-32) Blood Urea Nitrogen 29 mg/dL (7-18) Creatinine 2.8 MG/DL (0.55-1.30) Estimat Glomerular Filtration Rate 28.5 mL/min (>60) Glucose Level 74 MG/DL (74-106) Lactic Acid Level 19.30 mmol/L (0.4-2.0) Uric Acid 9.2 MG/DL (2.6-7.2) Calcium Level 9.1 MG/DL (8.5-10.1) Phosphorus Level 9.4 MG/DL (2.5-4.9) Magnesium Level 3.3 MG/DL (1.8-2.4) Total Bilirubin 3.7 MG/DL (0.2-1.0) Direct Bilirubin 3.1 MG/DL (0.0-0.3) Aspartate Amino Transf (AST/SGOT) 1402 U/L (15-37) Alanine Aminotransferase (ALT/SGPT) 652 U/L (12-78) Alkaline Phosphatase 980 U/L (46-116) Total Creatine Kinase 1062 U/L (26-308) Troponin I 0.082 ng/mL (0.000-0.056) C-Reactive Protein, Quantitative 8.5 mg/dL (0.00-0.90) Pro-B-Type Natriuretic Peptide 2839 pg/mL (0-125) Total Protein 5.1 G/DL (6.4-8.2) Albumin 1.8 G/DL (3.4-5.0) Globulin 3.3 g/dL Albumin/Globulin Ratio 0.5 (1.0-2.7) Folate 14.4 NG/ML (8.6-58.9) Thyroid Stimulating Hormone (TSH) 5.075 uiU/mL (0.358-3.740) Free Thyroxine 1.11 NG/DL (0.76-1.46) Height (Feet): 6 Height (Inches): 0.00 Weight (Pounds): 205 Objective Physical Exam Vitals: reviewed General Appearance: other - Slow speaking, Chronically Ill Head: normocephalic, atraumatic Respiratory: lungs clear, normal breath sounds Cardiovascular: regular rate, rhythm Gastrointestinal: non tender, distended, other - fluid wave Genitourinary: no CVA tenderness Musculoskeletal: back normal Neurologic: alert, DTRs symmetric, motor weakness - generalized, other - slightly lethargic Psychiatric: other - Initially refusing care and suspicious Skin: warm/dry, pallor - Sallow ++Cr Haddad MD Sep 02, 2020 06:59
--- NOTE | 2020-09-02 07:00 | NUR ---
NURSE HAND-OFF REPORT: Latest Vital Signs: Temperature 98.8 , Pulse 111 , B/P 80 /57 , Respiratory Rate 22 , O2 SAT 100 , Room Air, O2 Flow Rate . Vital Sign Comment: critically hypotensive EKG Rhythm: Sinus Tachycardia Rhythm change?: N MD Notified?: - MD Response: Latest Omalley Fall Score: 50 Fall Risk: High Risk Safety Measures: Call light Within Reach, Bed Alarm Zone 2, Side Rails Side Rails x3, Bed position Low and Locked. Fall Precautions: Yellow Socks Yellow Gown Door Sign Patient Fall Education Report given to MARIANA Yates.
--- NOTE | 2020-09-02 07:15 | NUR ---
NURSE NOTES: Report received from Kaushik Angela RN.Pt resting quietly in bed ,comatose,in agonal breathing on NRB mask 100%, S-Tach on the monitor BP low 80/50, Monzon cath with no urine output,NGT clamp ,feeding on hold,,skin cold and dry,heating blanket in placed, PICC line to ALAN intact with Levophed drip at 30mcg/min,Vasopressin dripat 0.04 u/min, and IVF D5 W +Bicarb at 100 ml/hr to RAC PIV,SR up x2 HOB elevated,bed lock in lowest position ,pt 's status guarded.
--- NOTE | 2020-09-02 08:00 | NUR ---
NURSE NOTES: Pt's daughter Gi Berg at bedside in conference with SHIPPING CL[employer] Ramon re making PT DNR.Pt's daughter agreed and sign DNR paper.
--- NOTE | 2020-09-02 08:21 | Neurology Progress Note ---
Interim History Interim History ROS Limited/Unobtainable: Yes Events: remains n icu agonal breathing Objective Physical Exam Last Vital Signs Date Time Temp Pulse Resp B/P (MAP) Pulse Ox O2 Delivery O2 Flow Rate FiO2 09/02/20 07:45 120 22 112/75 (87) 09/02/20 04:45 100 09/02/20 04:00 98.8 08/31/20 21:00 Room Air Laboratory Tests Test 09/01/20 14:18 09/01/20 22:48 09/02/20 03:10 09/02/20 06:42 Arterial Blood pH 7.382 (7.350-7.450) 6.981 (7.350-7.450) 6.751 (7.350-7.450) Arterial Blood Partial Pressure CO2 20.0 mmHg (35.0-45.0) *L 18.2 mmHg (35.0-45.0) *L 32.1 mmHg (35.0-45.0) L Arterial Blood Partial Pressure O2 96.9 mmHg (75.0-100.0) 241.2 mmHg (75.0-100.0) H 105.2 mmHg (75.0-100.0) H Arterial Blood HCO3 11.6 mmol/L (22.0-26.0) *L 4.2 mmol/L (22.0-26.0) *L 4.4 mmol/L (22.0-26.0) *L Arterial Blood Oxygen Saturation 96.4 % (95-100) 98.6 % (95-100) 91.1 % (95-100) L Arterial Blood Base Excess -11.6 (-2-2) *L -25.7 (-2-2) *L -29.7 (-2-2) *L Nicholas Test Positive Positive Positive White Blood Count 8.6 K/UL (4.8-10.8) Red Blood Count 3.33 M/UL (4.70-6.10) L Hemoglobin 9.1 G/DL (14.2-18.0) L Hematocrit 31.9 % (42.0-52.0) L Mean Corpuscular Volume 96 FL (80-99) # Mean Corpuscular Hemoglobin 27.2 PG (27.0-31.0) Mean Corpuscular Hemoglobin Concent 28.5 G/DL (32.0-36.0) L Red Cell Distribution Width 26.1 % (11.6-14.8) H Platelet Count 65 K/UL (150-450) L Mean Platelet Volume 9.5 FL (6.5-10.1) Neutrophils (%) (Auto) % (45.0-75.0) Lymphocytes (%) (Auto) % (20.0-45.0) Monocytes (%) (Auto) % (1.0-10.0) Eosinophils (%) (Auto) % (0.0-3.0) Basophils (%) (Auto) % (0.0-2.0) Neutrophils % (Manual) Pending Lymphocytes % (Manual) Pending Platelet Estimate Pending Platelet Morphology Pending Sodium Level 141 MMOL/L (136-145) Potassium Level 7.0 MMOL/L (3.5-5.1) #*H Chloride Level 110 MMOL/L (98-107) H Carbon Dioxide Level < 5 MMOL/L (21-32) *L Blood Urea Nitrogen 29 mg/dL (7-18) H Creatinine 2.8 MG/DL (0.55-1.30) #H Estimat Glomerular Filtration Rate 28.5 mL/min (>60) Glucose Level 74 MG/DL (74-106) Lactic Acid Level 19.30 mmol/L (0.4-2.0) H Uric Acid 9.2 MG/DL (2.6-7.2) H Calcium Level 9.1 MG/DL (8.5-10.1) Phosphorus Level 9.4 MG/DL (2.5-4.9) H Magnesium Level 3.3 MG/DL (1.8-2.4) H Total Bilirubin 3.7 MG/DL (0.2-1.0) H Direct Bilirubin 3.1 MG/DL (0.0-0.3) H Aspartate Amino Transf (AST/SGOT) 1402 U/L (15-37) H Alanine Aminotransferase (ALT/SGPT) 652 U/L (12-78) H Alkaline Phosphatase 980 U/L (46-116) H Total Creatine Kinase 1062 U/L (26-308) H Troponin I 0.082 ng/mL (0.000-0.056) C-Reactive Protein, Quantitative 8.5 mg/dL (0.00-0.90) H Pro-B-Type Natriuretic Peptide 2839 pg/mL (0-125) H Total Protein 5.1 G/DL (6.4-8.2) L Albumin 1.8 G/DL (3.4-5.0) L Globulin 3.3 g/dL Albumin/Globulin Ratio 0.5 (1.0-2.7) L Folate 14.4 NG/ML (8.6-58.9) Thyroid Stimulating Hormone (TSH) 5.075 uiU/mL (0.358-3.740) Free Thyroxine 1.11 NG/DL (0.76-1.46) Neurologic Exam Objective eview of Systems unable to assess Physical Exam General: pt is lethargic unresponsive Nuero Exam: Comatose, perrla bilat to light ocular cephalic response absent corneal gg No facial droop. Coordination: not able to test, No involuntary movements Bilat upper and lower extremities unable to follow commands not tested Gait not tested Impression/Recommendations Status: progressing Diagnostic Impression Assessment and Recs 1. 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 Solorzano --> will call daughter for more info have bene calling and left VM no call back will try again --> Will order steroids and treat for edema --> there is another orbital lesion which further evaluation with a orbit CT as recommended. Will order 2. Lethargy Agonal breathing not responsive --> hold sedatives --> poor prognosis 3. Hepatic Encephalopathy likely due to liver dysfunction --> lactulose/rifaximin per gi 4. Failure to Thrive --> due to cancer 5. Metastatic prostate cancer --> has been getting infusion at [facility], poor prognosis 6 Anemia of chronic disease 7. Liver failure Thank you for allowing us to participate in patient's care, patient was seen with Dr. Tra Solorzano and plan of care was discussed he Lea Garduno NP Sep 02, 2020 08:21
--- NOTE | 2020-09-02 08:33 | NUR ---
NURSE NOTES: Pt's BP 80/60,Phenylephrine drip started at 240 mcg /min infusing at 72 ml/min.
--- NOTE | 2020-09-02 09:00 | NUR ---
NURSE NOTES: Seen by Dr Ellis,updated re pt's guarded status and DNR status.
--- NOTE | 2020-09-02 09:30 | NUR ---
NURSE NOTES: DR Brink at bedside,updated re pt's DNR status and condition.
[2020-09-02] MEDS: Lactulose 20gm/30ml UDC ORAL SCH (09:48)
--- NOTE | 2020-09-02 10:00 | NUR ---
NURSE NOTES: Pt continue on agonal breathing then stopped,noted no spontaneous breathing ,no palpable pulse or BP noted lithopress operator,showing agonal rhythm. called pt's daughter Gi who was still around waiting in the parking lot, informed re pt's expiration.
--- NOTE | 2020-09-02 10:05 | NUR ---
NURSE NOTES: Dr Waller making rounds informed re pt is and DNR status.
--- NOTE | 2020-09-02 10:10 | NUR ---
NURSE NOTES: Pt pronounced by Mer Fink RN.One legacy called by Mer.
--- NOTE | 2020-09-02 10:20 | Cardiac Electrophysiology PN ---
Assessment/Plan Assessment/Plan 1. Sinus tachycardia due to metastatic prostate cancer and anemia and hepatic failure. 2. Septci shock maxed out on Levo, Jose and vasopressin and on iv Abx 3. Altered mental status due to hepatic encephalopathy. 4. Respiratory failure with agonal breathing on 100% FM. but DNR 5. Metastatic prostate cancer, followed by GI and Urology. NG tube placement is pending. Dr. Schmid is also following. PSA of 1522, has been FU at [facility]. Liver biopsy was recently done. 6. Thrombocytopenia, likely due to myelosuppression due to cancer. ELAINA RN Subjective Subjective Transferred to ICU on 3 pressors with agonal breathing. FAmily just made him DNR Objective Last 24 Hour Vital Signs Date Time Temp Pulse Resp B/P (MAP) Pulse Ox O2 Delivery O2 Flow Rate FiO2 09/02/20 08:33 111 80/57 09/02/20 07:45 120 22 112/75 (87) 09/02/20 07:30 118 21 120/76 (91) 09/02/20 07:30 98/71 09/02/20 07:21 118 22 142/93 (109) 09/02/20 07:15 121 21 146/103 (117) 09/02/20 07:00 126 21 131/95 (107) 09/02/20 06:30 115 20 91/76 (81) 09/02/20 06:15 114 20 106/82 (90) 09/02/20 06:00 114 20 113/80 (91) 09/02/20 05:45 113 20 110/88 (95) 09/02/20 05:30 113 18 113/94 (100) 09/02/20 05:15 112 19 99/71 (80) 09/02/20 05:08 98/71 09/02/20 05:00 112 19 99/82 (88) 09/02/20 04:45 111 19 98/71 (80) 100 09/02/20 04:30 112 19 86/63 (71) 100 09/02/20 04:15 110 19 90/58 (69) 100 09/02/20 04:00 109 09/02/20 04:00 98.8 109 19 82/63 (69) 100 09/02/20 04:00 111 98/71 09/02/20 03:15 117 19 116/102 (107) 09/02/20 03:08 118/96 09/02/20 03:00 118 17 113/89 (97) 09/02/20 02:45 118 17 108/84 (92) 09/02/20 02:30 118 17 107/74 (85) 09/02/20 02:15 118 17 96/39 (58) 09/02/20 02:00 120 18 68/53 (58) 09/02/20 01:30 121 18 118/96 (103) 09/02/20 01:15 111 18 70/39 (49) 09/02/20 01:11 80/54 09/02/20 01:00 112 19 80/54 (63) 09/02/20 00:30 114 20 91/78 (82) 09/02/20 00:00 116 21 84/69 (74) 09/02/20 00:00 115 09/01/20 23:30 117 22 99/70 (80) 09/01/20 23:00 120 21 92/70 (77) 09/01/20 22:00 124 22 98/72 (81) 09/01/20 21:00 130 27 141/119 (126) 09/01/20 20:00 136 09/01/20 20:00 133 27 134/99 (111) 09/01/20 19:00 136 30 154/95 (114) 95 09/01/20 19:00 98.2 136 30 154/95 (114) 95 09/01/20 18:00 138 29 142/97 (112) 95 09/01/20 17:00 140 31 146/101 (116) 100 09/01/20 16:00 98.0 144 30 129/100 (110) 09/01/20 16:00 140 09/01/20 15:00 149 27 123/90 (101) 68 09/01/20 14:00 150 30 136/93 (107) 09/01/20 13:00 151 28 137/98 (111) 09/01/20 12:00 97.9 139 23 153/99 (117) 09/01/20 12:00 142 09/01/20 11:00 141 28 138/100 (113) Intake and Output 09/01/20 09/02/20 19:00 07:00 Intake Total 960 ml 1345.015 ml Output Total 125 ml 55 ml Balance 835 ml 1290.015 ml Free Water 150 ml 60 ml IV Total 700 ml 1210.015 ml Tube Feeding 50 ml 75 ml Other 60 ml Output Urine Total 125 ml 55 ml Laboratory Tests Test 09/01/20 14:18 09/01/20 22:48 09/02/20 03:10 09/02/20 06:42 Arterial Blood pH 7.382 (7.350-7.450) 6.981 (7.350-7.450) 6.751 (7.350-7.450) Arterial Blood Partial Pressure CO2 20.0 mmHg (35.0-45.0) *L 18.2 mmHg (35.0-45.0) *L 32.1 mmHg (35.0-45.0) L Arterial Blood Partial Pressure O2 96.9 mmHg (75.0-100.0) 241.2 mmHg (75.0-100.0) H 105.2 mmHg (75.0-100.0) H Arterial Blood HCO3 11.6 mmol/L (22.0-26.0) *L 4.2 mmol/L (22.0-26.0) *L 4.4 mmol/L (22.0-26.0) *L Arterial Blood Oxygen Saturation 96.4 % (95-100) 98.6 % (95-100) 91.1 % (95-100) L Arterial Blood Base Excess -11.6 (-2-2) *L -25.7 (-2-2) *L -29.7 (-2-2) *L Nicholas Test Positive Positive Positive White Blood Count 8.6 K/UL (4.8-10.8) Red Blood Count 3.33 M/UL (4.70-6.10) L Hemoglobin 9.1 G/DL (14.2-18.0) L Hematocrit 31.9 % (42.0-52.0) L Mean Corpuscular Volume 96 FL (80-99) # Mean Corpuscular Hemoglobin 27.2 PG (27.0-31.0) Mean Corpuscular Hemoglobin Concent 28.5 G/DL (32.0-36.0) L Red Cell Distribution Width 26.1 % (11.6-14.8) H Platelet Count 65 K/UL (150-450) L Mean Platelet Volume 9.5 FL (6.5-10.1) Neutrophils (%) (Auto) % (45.0-75.0) Lymphocytes (%) (Auto) % (20.0-45.0) Monocytes (%) (Auto) % (1.0-10.0) Eosinophils (%) (Auto) % (0.0-3.0) Basophils (%) (Auto) % (0.0-2.0) Neutrophils % (Manual) Pending Lymphocytes % (Manual) Pending Platelet Estimate Pending Platelet Morphology Pending Sodium Level 141 MMOL/L (136-145) Potassium Level 7.0 MMOL/L (3.5-5.1) #*H Chloride Level 110 MMOL/L (98-107) H Carbon Dioxide Level < 5 MMOL/L (21-32) *L Blood Urea Nitrogen 29 mg/dL (7-18) H Creatinine 2.8 MG/DL (0.55-1.30) #H Estimat Glomerular Filtration Rate 28.5 mL/min (>60) Glucose Level 74 MG/DL (74-106) Lactic Acid Level 19.30 mmol/L (0.4-2.0) H Uric Acid 9.2 MG/DL (2.6-7.2) H Calcium Level 9.1 MG/DL (8.5-10.1) Phosphorus Level 9.4 MG/DL (2.5-4.9) H Magnesium Level 3.3 MG/DL (1.8-2.4) H Total Bilirubin 3.7 MG/DL (0.2-1.0) H Direct Bilirubin 3.1 MG/DL (0.0-0.3) H Aspartate Amino Transf (AST/SGOT) 1402 U/L (15-37) H Alanine Aminotransferase (ALT/SGPT) 652 U/L (12-78) H Alkaline Phosphatase 980 U/L (46-116) H Total Creatine Kinase 1062 U/L (26-308) H Troponin I 0.082 ng/mL (0.000-0.056) C-Reactive Protein, Quantitative 8.5 mg/dL (0.00-0.90) H Pro-B-Type Natriuretic Peptide 2839 pg/mL (0-125) H Total Protein 5.1 G/DL (6.4-8.2) L Albumin 1.8 G/DL (3.4-5.0) L Globulin 3.3 g/dL Albumin/Globulin Ratio 0.5 (1.0-2.7) L Folate 14.4 NG/ML (8.6-58.9) Thyroid Stimulating Hormone (TSH) 5.075 uiU/mL (0.358-3.740) Free Thyroxine 1.11 NG/DL (0.76-1.46) Test 09/02/20 07:04 POC Whole Blood Glucose 67 MG/DL (74-106) L Objective HEAD AND NECK: Agonal breathing on 100% Fio2. LUNGS: Decreased breath sounds. CARDIOVASCULAR: tachycardic S1 and S2 with no gallop. ABDOMEN: Distended with ascites. EXTREMITIES: Anasarca, 2+ edema of the legs and arms. David Ellis MD Sep 02, 2020 10:20
--- NOTE | 2020-09-02 10:30 | NUR ---
NURSE NOTES: Pt's daughter at bedside,given all belongings and money and medications deposited in the safe.
--- NOTE | 2020-09-02 10:33 | Nephrology Progress Note ---
Assessment/Plan Problem List: (1) Renal insufficiency (2) Liver failure (3) Prostate cancer (4) Bony metastasis (5) Anemia (6) Encephalopathy Assessment 59-year-old male presents with severe weakness. History of prostate cancer. Renal failure, serum creatinine 1.5 Severe anemia Elevated LFTs and bilirubin Plan September 02: Labs reviewed. Renal function worsened. Hyperkalemic. ABG indicative of severe metabolic acidosis. IV bicarb given. Patient now DNR. Clinical condition poor. Continue current support. No candidate for dialysis. September 01: Labs reviewed. Creatinine 1.5. Patient transferred to ICU for poor responsiveness. Tachycardic and blood pressure other controlled. Cardiology and pulmonary on board. ABG waiting. Stable from renal standpoint of view. August 31: No CHEM panel drawn today. Continue per consultants. Will check lab tomorrow. August 30: Labs reviewed. Marinol ordered for low appetite. Continue same. August 29: Allopurinol 300 mg twice a day ordered. Folic acid ordered. Continue per consultants. Anemia work-up Kidney and abdominal ultrasound Monitor renal parameters Urine studies PSA level Avoid nephrotoxic's IV fluid Continue per consultants Subjective ROS Limited/Unobtainable: Yes Objective Objective Last 24 Hour Vital Signs Date Time Temp Pulse Resp B/P (MAP) Pulse Ox O2 Delivery O2 Flow Rate FiO2 09/02/20 08:33 111 80/57 09/02/20 07:45 120 22 112/75 (87) 09/02/20 07:30 118 21 120/76 (91) 09/02/20 07:30 98/71 09/02/20 07:21 118 22 142/93 (109) 09/02/20 07:15 121 21 146/103 (117) 09/02/20 07:00 126 21 131/95 (107) 09/02/20 06:30 115 20 91/76 (81) 09/02/20 06:15 114 20 106/82 (90) 09/02/20 06:00 114 20 113/80 (91) 09/02/20 05:45 113 20 110/88 (95) 09/02/20 05:30 113 18 113/94 (100) 09/02/20 05:15 112 19 99/71 (80) 09/02/20 05:08 98/71 09/02/20 05:00 112 19 99/82 (88) 09/02/20 04:45 111 19 98/71 (80) 100 09/02/20 04:30 112 19 86/63 (71) 100 09/02/20 04:15 110 19 90/58 (69) 100 09/02/20 04:00 109 09/02/20 04:00 98.8 109 19 82/63 (69) 100 09/02/20 04:00 111 98/71 09/02/20 03:15 117 19 116/102 (107) 09/02/20 03:08 118/96 09/02/20 03:00 118 17 113/89 (97) 09/02/20 02:45 118 17 108/84 (92) 09/02/20 02:30 118 17 107/74 (85) 09/02/20 02:15 118 17 96/39 (58) 09/02/20 02:00 120 18 68/53 (58) 09/02/20 01:30 121 18 118/96 (103) 09/02/20 01:15 111 18 70/39 (49) 09/02/20 01:11 80/54 09/02/20 01:00 112 19 80/54 (63) 09/02/20 00:30 114 20 91/78 (82) 09/02/20 00:00 116 21 84/69 (74) 09/02/20 00:00 115 09/01/20 23:30 117 22 99/70 (80) 09/01/20 23:00 120 21 92/70 (77) 09/01/20 22:00 124 22 98/72 (81) 09/01/20 21:00 130 27 141/119 (126) 09/01/20 20:00 136 09/01/20 20:00 133 27 134/99 (111) 09/01/20 19:00 136 30 154/95 (114) 95 09/01/20 19:00 98.2 136 30 154/95 (114) 95 09/01/20 18:00 138 29 142/97 (112) 95 09/01/20 17:00 140 31 146/101 (116) 100 09/01/20 16:00 98.0 144 30 129/100 (110) 09/01/20 16:00 140 09/01/20 15:00 149 27 123/90 (101) 68 09/01/20 14:00 150 30 136/93 (107) 09/01/20 13:00 151 28 137/98 (111) 09/01/20 12:00 97.9 139 23 153/99 (117) 09/01/20 12:00 142 09/01/20 11:00 141 28 138/100 (113) Intake and Output 09/01/20 09/02/20 19:00 07:00 Intake Total 960 ml 1345.015 ml Output Total 125 ml 55 ml Balance 835 ml 1290.015 ml Free Water 150 ml 60 ml IV Total 700 ml 1210.015 ml Tube Feeding 50 ml 75 ml Other 60 ml Output Urine Total 125 ml 55 ml Current Medications Medications (Trade) Dose Ordered Sig/David Route PRN Reason Start Time Stop Time Status Last Admin Dose Admin Allopurinol (allopurinoL) 300 mg Q12HR ORAL 08/29/20 21:00 09/28/20 20:59 09/02/20 09:49 Ceftriaxone Sodium 1 gm/ Dextrose 55 ml @ 110 mls/hr Q24H IVPB 08/28/20 16:00 09/04/20 15:59 09/01/20 16:20 Chlorhexidine Gluconate (Cydney-Hex 2%) 1 applic DAILY@2000 TOPIC 08/30/20 20:00 11/28/20 19:59 09/01/20 20:52 Dexamethasone Sodium Phosphate (Decadron 4mg/ml vial) 4 mg Q6HR IVP 09/02/20 00:00 09/10/20 18:01 09/02/20 05:24 Folic Acid (Folate) 5 mg DAILY ORAL 08/29/20 14:30 09/28/20 14:29 09/02/20 09:48 Hydralazine HCl (Apresoline) 10 mg Q2H PRN IV sbp>170 09/01/20 10:00 11/30/20 09:59 Hydrocortisone (Solu-CORTEF) 100 mg EVERY 8 HOURS IV 09/02/20 14:00 12/01/20 13:59 Iohexol (OMNIPAQUE-300 100ml) 100 ml ONCE PRN INJ Radiology use only 09/01/20 15:00 09/02/20 23:59 Lactulose (Cephulac) 20 gm BID ORAL 08/29/20 14:30 09/28/20 14:29 09/02/20 09:48 Norepinephrine Bitartrate 250 ml @ 0 mls/hr Q24H IV 09/02/20 01:00 09/05/20 01:00 09/02/20 07:30 Ondansetron HCl (Zofran) 4 mg Q4H PRN IVP Nausea & Vomiting 08/29/20 09:15 09/28/20 09:14 08/29/20 12:51 Phenylephrine HCl 50 mg/Dextrose 250 ml @ 0 mls/hr Q24H IV 09/02/20 04:00 09/05/20 03:57 09/02/20 08:33 Sodium Bicarbonate 100 ml/Dextrose 1,100 ml @ 100 mls/hr Q11H IV 09/02/20 00:30 10/02/20 00:29 09/01/20 23:50 Sodium Bicarbonate (Sodium Bicarbonate) 100 ml ONCE IV 09/02/20 09:30 09/02/20 11:00 Vasopressin 100 units/Sodium Chloride 100 ml @ 0 mls/hr Q24H IV 09/02/20 04:00 09/05/20 03:57 09/02/20 04:26 Laboratory Tests 09/01/20 14:18: Arterial Blood pH 7.382, Arterial Blood Partial Pressure CO2 20.0*L, Arterial Blood Partial Pressure O2 96.9, Arterial Blood HCO3 11.6*L, Arterial Blood Oxygen Saturation 96.4, Arterial Blood Base Excess -11.6*L, Nicholas Test Positive 09/01/20 22:48: Arterial Blood pH 6.981*L, Arterial Blood Partial Pressure CO2 18.2*L, Arterial Blood Partial Pressure O2 241.2H, Arterial Blood HCO3 4.2*L, Arterial Blood Oxygen Saturation 98.6, Arterial Blood Base Excess -25.7*L, Nicholas Test Positive 09/02/20 03:10: White Blood Count 8.6, Red Blood Count 3.33L, Hemoglobin 9.1L, Hematocrit 31.9L, Mean Corpuscular Volume 96#, Mean Corpuscular Hemoglobin 27.2, Mean Corpuscular Hemoglobin Concent 28.5L, Red Cell Distribution Width 26.1H, Platelet Count 65L, Mean Platelet Volume 9.5, Neutrophils (%) (Auto) , Lymphocytes (%) (Auto) , Monocytes (%) (Auto) , Eosinophils (%) (Auto) , Basophils (%) (Auto) , Neutrophils % (Manual) [Pending], Lymphocytes % (Manual) [Pending], Platelet Estimate [Pending], Platelet Morphology [Pending], Sodium Level 141, Potassium Level 7.0#*H, Chloride Level 110H, Carbon Dioxide Level < 5*L, Blood Urea Nitrogen 29H, Creatinine 2.8#H, Estimat Glomerular Filtration Rate 28.5, Glucose Level 74, Lactic Acid Level 19.30H, Uric Acid 9.2H, Calcium Level 9.1, Phosphorus Level 9.4H, Magnesium Level 3.3H, Total Bilirubin 3.7H, Direct Bilirubin 3.1H, Aspartate Amino Transf (AST/SGOT) 1402H, Alanine Aminotransferase (ALT/SGPT) 652H, Alkaline Phosphatase 980H, Total Creatine Kinase 1062H, Troponin I 0.082H, C-Reactive Protein, Quantitative 8.5H, Pro-B-Type Natriuretic Peptide 2839H, Total Protein 5.1L, Albumin 1.8L, Globulin 3.3, Albumin/Globulin Ratio 0.5L, Folate 14.4, Thyroid Stimulating Hormone (TSH) 5.075H, Free Thyroxine 1.11 09/02/20 06:42: Arterial Blood pH 6.751*L, Arterial Blood Partial Pressure CO2 32.1L, Arterial Blood Partial Pressure O2 105.2H, Arterial Blood HCO3 4.4*L, Arterial Blood Oxygen Saturation 91.1L, Arterial Blood Base Excess -29.7*L, Nicholas Test Positive 09/02/20 07:04: POC Whole Blood Glucose 67L Height (Feet): 6 Height (Inches): 0.00 Weight (Pounds): 205 General Appearance: lethargic Cardiovascular: tachycardia Respiratory/Chest: decreased breath sounds Abdomen: distended Dean Brink MD Sep 02, 2020 10:33
--- NOTE | 2020-09-02 10:42 | Consultation ---
Consult Note Consult Note Asked by RN to evaluate patient Patient seen without palpable pulse or respirations monitor car operator shows flatline No corneal reflexes Pronounced at 10;10 AM nuclear physics teacher aware Dr Fields notified Keshawn Waller MD Sep 02, 2020 10:42
--- NOTE | 2020-09-03 10:44 | Cardiology Report ---
APPROVED REPORT EXAM: Two-dimensional and M-mode echocardiogram with Doppler and color Doppler. INDICATION Congestive Heart Failure <Conclusion> Limited study due to poor acoustic windows. Study quality precludes accurate assessment of regional wall motion. M-mode measurements of left ventricle not obtainable due to cardiac position (angle). Possibly normal left ventricular systolic function. Left ventricular ejection fraction estimated to be grossly normal.
--- NOTE | 2020-09-07 15:24 | Discharge Summary ---
Discharge Summary Discharge Summary _ Date of admission: 08/27/2020 Date of expiration: 09/02/2020 History of Present Illness and Brief Hospital Course Mr. Thompson was a 59-year-old male with past medical history of prostate cancer who was brought in by EMS for evaluation of weakness. Patient was undergoing treatment at [facility] and was supposed to have a biopsy on the day of presentation but could not make it to the facility because of weakness. Patient reported testing negative for COVID-19 1 week prior to presentation. Patient was admitted to the hospital for further management. Abdominal x-ray showed possible hepatomegaly, and extremely sclerotic bones. Chest x-ray was also notable for markedly abnormal diffusely sclerotic bones. Abdominal ultrasound revealed heterogeneous liver with suggestion of masses throughout, concerning for masses. Liver was enlarged, measuring 22.8 cm. An enlarged, heterogeneous spleen was also demonstrated. Abdomen/pelvis CT demonstrated diffuse osseous metastatic disease, concerning for prostate cancer. Innumerable hepatic metastatic masses with severe hepatic enlargement were also demonstrated. Venous duplex ultrasound of legs did not show DVT. During the hospitalization, patient appeared more lethargic than usual. Given the acute altered mental status, patient was evaluated with MRI of brain which revealed extensive subdural metastatic disease, extensive meningeal enhancement, some mass-effect, and evidence of metastatic disease within the bilateral parietal scalp. Patient was found to have acute hypoxia and was placed on low-flow oxygen. Sup plemental oxygen was provided as needed. On 09/02/2020, patient was found to be in asystole on the monitor. Patient was seen without palpable pulse or respirations. Patient did not have any corneal reflexes. Patient was DNR at this point. Unfortunately, patient was pronounced on 09/02/2020 at 1010. Consultants: Cardiology Dr. Ellis Pulmonology Dr. Waller Neurology Lea Navarro NP Hematology oncology Dr. Schmid Gastroenterology Dr. Arguello Infectious disease Dr. Miranda Nephrology Dr. Shukla Final diagnoses Sinus tachycardia Septic shock Hepatic encephalopathy Acute hypoxic respiratory failure Metastatic prostate cancer Thrombocytopenia Anemia of chronic disease Ascites Bony metastases Renal insufficiency UTI Liver failure Lethargy Pleural effusion I have been assigned to dictate discharge summary for this account. Siva Moreno Sep 07, 2020 15:24
== END 2020-09-02 10:10 | disposition expired | DRG 435 ==
LOC: EDBD 14:12 → EMR 14:32 → 4E 15:10 → EDBEDREQ 16:32 → 4E 17:39 → 2E 08-30 15:48 → ICU 09-01 10:08
PROC: 30233N1 Transfusion of Nonautologous Red Blood Cells into Peripheral Vein, Percutaneous Approach (ICD-10-PCS; principal; 2020-08-28)
PROC: 02HV33Z Insertion of Infusion Device into Superior Vena Cava, Percutaneous Approach (ICD-10-PCS; 2020-08-30)
DX: C78.7 Secondary malignant neoplasm of liver and intrahepatic bile duct (principal); R65.21 Severe sepsis with septic shock; J96.01 Acute respiratory failure with hypoxia; A41.9 Sepsis, unspecified organism; C79.51 Secondary malignant neoplasm of bone; N17.9 Acute kidney failure, unspecified; R18.8 Other ascites; G93.49 Other encephalopathy; C79.32 Secondary malignant neoplasm of cerebral meninges; Z66 Do not resuscitate; K72.90 Hepatic failure, unspecified without coma; C61 Malignant neoplasm of prostate; D63.8 Anemia in other chronic diseases classified elsewhere; R62.7 Adult failure to thrive; D69.59 Other secondary thrombocytopenia
CPT/HCPCS: 36415; 36573; 51702; 70553; 71045; 74018; 74176; 76700; 76937; 80053; 80061; 80307; 81003; 82140; 82248; 82550; 82607; 82728; 82746; 82803; 82962; 82977; 83540; 83550; 83605; 83615; 83690; 83735; 83880; 84100; 84153; 84403; 84439; 84443; 84484; 84550; 85007; 85025; 85610; 85730; 86140; 86850; 86900; 86901; 86920; 87040; 87086; 93005; 93306; 93970; 96360; 96361; 99285; A9585; J2370; J2405; J7030